=== PATIENT | female | born 1960 | race Caucasian/White ===

== ENCOUNTER 2021-07-08 21:28 | Emergency (ER) | payer MEDICAID, OTHER, SELFPAY ==
--- NOTE | ~2021-07-08 | CT_ITS ---
EXAMINATION: CT CERVICAL SPINE WITHOUT CONTRAST; UNENHANCED CT OF THE HEAD. CLINICAL INFORMATION: Right upper extremity numbness and tingling since 5:00 PM. COMPARISON: None TECHNIQUE: Routine unenhanced CT of the head with multiple coronal and sagittal reformatted images; routine unenhanced CT of the cervical spine with multiple coronal and sagittal reformatted images. This CT examination was performed using dose optimization techniques as appropriate, variously including the following: *Automated exposure control *Adjustment of mA and/or kV according to patient size (this includes techniques or standardized protocols for targeted exams where dose is matched to indication/reason for exam; i.e. extremities or head) *Use of iterative reconstruction technique DLP: 982 mGy-cm FINDINGS: CT head: No intracranial hemorrhage, tumors or acute infarcts are noted. The ventricles and sulci are normal in size and configuration. No focal parenchymal lesions of the brain or abnormal extra-axial fluid collections are noted. The orbits and globes are partially included in the image [id number] and are normal in appearance. No significant opacification of the visualized paranasal sinuses, mastoid air cells and middle ear cavities is identified. Focal density (70 Hounsfield units) of the left lateral aspect of the anterior falx is noted on image 50 of series 3 over a 2-3 mm diameter focus. This region demonstrates a sharp zone of transition and angulated, oblique angles which is not a typical configuration for subdural hemorrhage. (series 7 image 61). This region exerts no mass effect upon the adjacent brain parenchyma. 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 No fractures or acute appearing subluxations of the cervical spine are noted. Partial visualization is made of posterior broad-based disc bulges with annular calcifications at the levels of C5-C6 and C6-C7. Findings may result in mild-moderate adjacent central canal stenoses. The visualized lung apices are clear. No prevertebral inflammatory changes or fluid collections are visualized. The thyroid is normal in appearance. CT/CT head/brain wo con IMPRESSION: Unenhanced CT the head: 1. No definitive acute intracranial abnormalities. 2. 3 mm focal density along the left parasagittal aspect of the anterior falx. This finding is too small to specifically characterize and could represent a small meningioma. In the setting of trauma, a small focus of subdural hemorrhage could have a similar appearance. Given the absence of trauma in the clinical history and no evidence of traumatic findings elsewhere on the unenhanced CT the head, this finding is of uncertain clinical significance. Unenhanced CT of the cervical spine: 1. No acute abnormalities. 2. Chronic spondylosis at C5-C6 and C6-C7 as detailed above.
--- NOTE | ~2021-07-08 | CT_ITS ---
EXAMINATION: CT CERVICAL SPINE WITHOUT CONTRAST; UNENHANCED CT OF THE HEAD. CLINICAL INFORMATION: Right upper extremity numbness and tingling since 5:00 PM. COMPARISON: None TECHNIQUE: Routine unenhanced CT of the head with multiple coronal and sagittal reformatted images; routine unenhanced CT of the cervical spine with multiple coronal and sagittal reformatted images. This CT examination was performed using dose optimization techniques as appropriate, variously including the following: *Automated exposure control *Adjustment of mA and/or kV according to patient size (this includes techniques or standardized protocols for targeted exams where dose is matched to indication/reason for exam; i.e. extremities or head) *Use of iterative reconstruction technique DLP: 982 mGy-cm FINDINGS: CT head: No intracranial hemorrhage, tumors or acute infarcts are noted. The ventricles and sulci are normal in size and configuration. No focal parenchymal lesions of the brain or abnormal extra-axial fluid collections are noted. The orbits and globes are partially included in the image [id number] and are normal in appearance. No significant opacification of the visualized paranasal sinuses, mastoid air cells and middle ear cavities is identified. Focal density (70 Hounsfield units) of the left lateral aspect of the anterior falx is noted on image 50 of series 3 over a 2-3 mm diameter focus. This region demonstrates a sharp zone of transition and angulated, oblique angles which is not a typical configuration for subdural hemorrhage. (series 7 image 61). This region exerts no mass effect upon the adjacent brain parenchyma. 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 No fractures or acute appearing subluxations of the cervical spine are noted. Partial visualization is made of posterior broad-based disc bulges with annular calcifications at the levels of C5-C6 and C6-C7. Findings may result in mild-moderate adjacent central canal stenoses. The visualized lung apices are clear. No prevertebral inflammatory changes or fluid collections are visualized. The thyroid is normal in appearance. CT/CT cervical spine wo con IMPRESSION: Unenhanced CT the head: 1. No definitive acute intracranial abnormalities. 2. 3 mm focal density along the left parasagittal aspect of the anterior falx. This finding is too small to specifically characterize and could represent a small meningioma. In the setting of trauma, a small focus of subdural hemorrhage could have a similar appearance. Given the absence of trauma in the clinical history and no evidence of traumatic findings elsewhere on the unenhanced CT the head, this finding is of uncertain clinical significance. Unenhanced CT of the cervical spine: 1. No acute abnormalities. 2. Chronic spondylosis at C5-C6 and C6-C7 as detailed above.
[2021-07-08 22:08] VITALS: BP 112/64; PULSE 90; RESP 18; TEMP 36.7; O2SAT 95; BMI 24.5
[2021-07-08 23:54] LABS: MANUAL DIFF FLAG NO
[2021-07-08 23:58] LABS: Basophils Percent Auto 0.2 % (0-2); Hematocrit 42.4 % (37-47); Hemoglobin 14.1 g/dl (12.0-16.0); Imm Gran Abs Auto 0.02 X10*3/uL (0.00-0.03); Imm Gran Pct Auto 0.4 % (0.0-0.4); Lymphocytes Absolute Auto 1.2 X10*3/uL (1.2-4.9); Mean Corpuscular HGB Conc 33.3 g/dl (31.0-35.0); Mean Corpuscular Hemoglobin 28.2 pg (27.0-33.0); Mean Corpuscular Volume 84.8 fL (80-98); Mean Platelet Volume 10.2 fL (9.4-12.3); Monocytes Absolute Auto 0.4 X10*3/uL (0.1-1.2); Monocytes Percent Auto 6.9 % (2-11); Neutrophils Absolute Auto 3.6 X10*3/uL (2.0-8.3); Neutrophils Percent Auto 69.5 % (45-73); Platelet Count 201 X10*3/uL (160-400); Red Cell Distribution Width 12.6 % (11.0-16.0); White Blood Count 5.2 X10*3/uL (4.8-10.8)
--- NOTE | 2021-07-09 00:03 | ED_ITS ---
HPI - Neuro Symptoms/Deficit General Chief Complaint: Neuro Symptoms/Deficit Stated Complaint: Hand numbness/headach Time Seen by Provider: 07/09/21 00:03 Source: patient, family (Daughter) and paraprofessional interpreter ([employer]) Mode of arrival: ambulatory History of Present Illness HPI Narrative: 61-year-old female with presentation of tingling in the left upper extremity that goes from the elbow distally as well as describing body aches and headache that has all started at 5:00 p.m. after she received her COVID-19 vaccine yesterday. Patient otherwise denies any medical history although the daughter describes that she was informed in the [place] that she had diabetes but has not been on medications. Otherwise, patient denies any facial droop, speech/visual/hearing deficits, difficulties with ambulating. Related Data Previous Rx's Medication Instructions Recorded metformin 500 mg tablet 500 mg PO BID 30 Days #60 tab 07/09/21 Allergies Allergy/AdvReac Type Severity Reaction Status Date / Time No Known Allergies Allergy Verified 07/08/21 22:08 Review of Systems Review of Systems: Pertinent positives and negatives as stated HPI 10 point review of systems is otherwise negative. [facility] Past Medical History Source: nursing notes reviewed Social History Social History Advance Directives: No Advance Directives Information Provided: Yes Patient : No Physical Exam Vital Signs: Vital Signs: Last Vital Signs Temp 98.1 F 07/08/21 22:08 Pulse 77 07/09/21 02:28 Resp 20 07/09/21 02:28 BP 123/72 07/09/21 02:28 Pulse Ox 97 07/09/21 02:28 Body Mass Index 24.5 VITAL SIGNS: Reviewed. GENERAL: Well developed, well nourished, in no acute distress. HEAD: Normocephalic/atraumatic EYES: PERRLA, EOMI EARS: Ext canals without abnormality, TMs non-bulging and non-erythematous NOSE: Nares patent bilateral OROPHARYNX: no oral lesions noted, posterior pharynx clear, moist mucosa NECK: Supple, no adenopathy LUNGS: Normal breath sounds. No adventitious sounds or accessory muscle use. SpO2<98> CARDIOVASCULAR: Regular rate and rhythm without noted murmurs, no JVD or lower extremity edema. ABDOMEN: Soft, non-tender, non-distended with bowel sounds MUSCULOSKELETAL: No tenderness, deformities, or effusions noted on gross inspection. EXTREMITIES: No cyanosis, clubbing or edema. SKIN: Inspection of the skin reveals no rashes NEUROLOGIC: Alert and oriented x 4. Strength and sensation to light touch were grossly intact x 4, no facial asymmetry, no pronator drift, cranial nerves 2-12 are grossly intact, cerebellar testing is intact Course Course Course Narrative: 61-year-old female with history and clinical presentation most consistent with COVID-19 vaccine side effects as there are no focal deficits to suggest serious neurologic deficits. Patient is however noted to be hyper glycemic and will ensure she is neither in DKA or HHS and start her on oral medications. Review of all investigations otherwise negative for acute findings other than hyperglycemia without evidence of DKA or HHS. Patient received 1 L of IV fluids and repeat point of care glucose-249. Patient discharged home in stable condition with a prescription for metformin and instructions to follow-up with her primary care provider. MDM - Neuro Symptoms/Deficit Lab Data Result diagrams: 07/08/21 23:47 07/08/21 23:47 Labs: Lab Results 07/08/21 07/08/21 07/09/21 Range/Units 23:47 23:47 02:32 WBC 5.2 (4.8-10.8) X10*3/uL RBC 5.00 (4.20-5.50) X10*6/uL Hgb 14.1 (12.0-16.0) g/dl Hct 42.4 (37-47) % MCV 84.8 (80-98) fL MCH 28.2 (27.0-33.0) pg MCHC 33.3 (31.0-35.0) g/dl RDW 12.6 (11.0-16.0) % Plt Count 201 (160-400) X10*3/uL MPV 10.2 (9.4-12.3) fL Immature Gran % (Auto) 0.4 (0.0-0.4) % Neut % (Auto) 69.5 (45-73) % Lymph % (Auto) 23.0 (20-40) % Rains % (Auto) 6.9 (2-11) % Eos % (Auto) 0.0 (0-4) % Baso % (Auto) 0.2 (0-2) % Lymph # (Auto) 1.2 (1.2-4.9) X10*3/uL Rains # (Auto) 0.4 (0.1-1.2) X10*3/uL Eos # (Auto) 0.0 (0.0-0.4) X10*3/uL Baso # (Auto) 0.0 (0.0-0.2) X10*3/uL Abs Immat Gran (auto) 0.02 (0.00-0.03) X10*3/uL Absolute Neuts (auto) 3.6 (2.0-8.3) X10*3/uL Absolute Nucleated RBC 0.000 (0.0-0.012) X10*3/uL Nucleated RBC % (auto) 0.0 (0.0-0.2) /100WBC Sodium 135 (135-145) mmol/L Potassium 3.9 (3.3-5.1) mmol/L Chloride 103 (96-108) mmol/L Carbon Dioxide 26 (22-29) mmol/L Anion Gap 10 L (12-20) BUN 9 (9-16) mg/dL Creatinine 1.08 (0.5-1.4) mg/dL Estim Creat Clear Calc 43.2 Estimated GFR 52 POC Glucose 249 H (60-115) mg/dL Random Glucose 470 H* (60-115) mg/dL Calcium 9.3 (8.4-10.2) mg/dL Total Bilirubin 0.6 (0.0-1.0) mg/dL AST 11 (5-31) U/L ALT 18 (0-31) U/L Alkaline Phosphatase 82 (39-117) U/L Total Protein 6.2 L (6.5-8.0) g/dL Albumin 3.7 (3.5-5.0) g/dL Acetone, Qual Negative (Negative) Discharge Plan Discharge Clinical Impression: Diabetes, Hyperglycemia Patient Disposition: Home, Self-Care Instructions: Metformin (By mouth), Meal Planning with Diabetes Exchanges (DC), Diabetic Retinopathy (ED), Diabetic Peripheral Neuropathy (ED), Diabetic Kidney Disease (ED), Type 2 Diabetes in the Older Adult (ED), Diabetes and Nutrition (ED), Diabetes and Exercise (ED) Additional Instructions: 1. Tiene diabetes. 2. Le parks recetado la medicaci?n inicial chao 30 d?as. 3. Brenden un seguimiento con un proveedor de atenci?n primaria comunic?ndose con quiñonez sloan??a de seguros para obtener anusha lista. Regrese a la niyah de emergencias si joy s?ntomas empeoran de manera aguda. Prescriptions: New metformin 500 mg tablet 500 mg PO BID 30 Days Qty: 60 RF: 0 Print Language: Malaysian
[2021-07-09 00:13] LABS: Glucose Random 470 mg/dL (60-115)
[2021-07-09 00:14] LABS: Alanine Aminotransferase 18 U/L (0-31); Albumin Level 3.7 g/dL (3.5-5.0); Alkaline Phosphatase 82 U/L (39-117); Anion Gap 10 (12-20); Aspartate Amino Transferase 11 U/L (5-31); Bilirubin Total 0.6 mg/dL (0.0-1.0); Blood Urea Nitrogen 9 mg/dL (9-16); Calcium 9.3 mg/dL (8.4-10.2); Carbon Dioxide 26 mmol/L (22-29); Chloride 103 mmol/L (96-108); Creatinine Clr Calc Pharmacy 43.2; Estimated Glomerular Filt Rate 52; Potassium 3.9 mmol/L (3.3-5.1); Sodium 135 mmol/L (135-145); Total Protein 6.2 g/dL (6.5-8.0)
[2021-07-09 00:32] VITALS: BP 111/69; PULSE 79; RESP 16; O2SAT 98
[2021-07-09 00:33] LABS: Acetone, serum QL Negative (Negative)
--- NOTE | 2021-07-09 00:44 | PC.NURSE ---
Pt resting on stretcher in NAD, breathing with ease on RA. Pt aaox4, moving all extremities and repositioning independently on stretcher. Pt able to change self from sweater into gown. Dr Bowen to bedside with video senior business architect machine. Pt NSR on monitoring specialist, VSS. Pt with good effort against gravity with BUE and BLE. Pt with equal strength bilaterally. Pt reporting PRATER. Pt also reporting L hand numbness s/p vaccination yesterday. Pt reports sx began at about 5pm last evening. Pt aware of plan for CT scan of head and neck and medication upon return to room, per Dr Bowen. Pt made aware of need to establish PCP to monitor pt's blood sugar, pt expresses understanding. Pt to ED CT at this time.
[2021-07-09] MEDS: 0.9 % Sodium Chloride 1,000 ML 999 ML IV (01:27)
[2021-07-09 02:28] VITALS: BP 123/72; PULSE 77; RESP 20; O2SAT 97
[2021-07-09 02:37] LABS: Glucose, Whole Blood 249 mg/dL (60-115)
--- NOTE | 2021-07-09 02:38 | PC.NURSE ---
Pt ambulates to bathroom with steady gait. POC blood glucose reassessed, 249. Dr Bowen made aware. Pt resting on stretcher in NAD, stretcher low locked position, rails raised x 2, call schmidt within reach.
[2021-07-09 03:51] VITALS: BP 118/75; PULSE 84; RESP 15; O2SAT 98
== END 2021-07-09 03:59 | disposition home or self-care (01) ==
PROVIDERS: Emergency Provider Student in an Organized Health Care Education/Training Program
DX: E11.65 Type 2 diabetes mellitus with hyperglycemia (principal)
CPT/HCPCS: 36415; 70450; 72125; 80053; 82009; 82947; 85025; 96360; 99284

== ENCOUNTER 2021-09-28 09:32 | Outpatient (REF) | payer MEDICAID, OTHER, SELFPAY ==
--- NOTE | ~2021-09-28 | XR_ITS ---
EXAMINATION: BILATERAL KNEE X-RAY CLINICAL INFORMATION: Pain COMPARISON: None TECHNIQUE: 4 views of each knee FINDINGS: Right: Bone alignment is normal. No fracture or dislocation is seen. Joint spaces are normal. There is no joint effusion. Left: Bone alignment is normal. No fracture or dislocation is seen. The joint spaces are normal. There is no joint effusion. XR/XR knee LT 4V IMPRESSION: Normal knee x-rays
--- NOTE | ~2021-09-28 | XR_ITS ---
EXAMINATION: BILATERAL KNEE X-RAY CLINICAL INFORMATION: Pain COMPARISON: None TECHNIQUE: 4 views of each knee FINDINGS: Right: Bone alignment is normal. No fracture or dislocation is seen. Joint spaces are normal. There is no joint effusion. Left: Bone alignment is normal. No fracture or dislocation is seen. The joint spaces are normal. There is no joint effusion. XR/XR knee RT 4V IMPRESSION: Normal knee x-rays
== END 2021-09-28 09:33 | disposition home or self-care (01) ==
LOC: HO.XRAY 09:32
PROVIDERS: PCP Nurse Practitioner Family; Visit Provider Nurse Practitioner Family
DX: M25.561 Pain in right knee (principal); M25.562 Pain in left knee
CPT/HCPCS: 73564

== ENCOUNTER 2023-04-29 11:38 | Outpatient (REF) | payer MEDICAID, OTHER, SELFPAY ==
--- NOTE | ~2023-04-29 | XR_ITS ---
EXAMINATION: XR FOREARM, LEFT CLINICAL INFORMATION: Nodule COMPARISON: None available. TECHNIQUE: Frontal and lateral view 2 views AP and lateral views of the left forearm were obtained. FINDINGS: The bones and soft tissues are normal. No fracture. Imaged portions of the elbow and wrist are unremarkable. XR/XR forearm LT 2V IMPRESSION: No osseous changes to explain patient's symptoms. Ultrasound or contrast-enhanced MRI could be utilized to assess for possible soft tissue mass.
== END 2023-04-29 11:39 | disposition home or self-care (01) ==
LOC: HO.HHCX 11:38
PROVIDERS: Visit Provider Student in an Organized Health Care Education/Training Program
DX: M79.602 Pain in left arm (principal)
CPT/HCPCS: 73090

== ENCOUNTER → 2023-05-27 11:05 | Outpatient (REF) | payer MEDICAID, OTHER, SELFPAY ==
--- NOTE | 2023-05-27 11:08 | CA_ITS ---
Transthoracic Echocardiogram Patient (Last, First, Middle): Adina Eisenberg, Gender: Female Date of : 1960 Age: 63 Procedure Date: 05/27/2023 Procedure Type: Transthoracic Echocardiogram Location: OP Height: 152.4 cm Weight: 60.33 kg BSA: 1.57 m2 Heart Rate: 82 bpm BP: 125 / 75 mmHg Cable Installation Technician: SIVAN Tovar MD: Nedra Carrillo MD Satin Finisher: Cam Sanchez MD Symptoms: CARDIOMEGALY I51.7 Study Quality: Fair ECG Rhythm: Sinus Conclusions: - 1. Normal LV ejection fraction 55-60% with mild LVH with impaired relaxation filling pattern 2. Normal cardiac valvular Doppler 3. Mildly dilated ascending aorta at 4 cm 4. Normal RV systolic pressure 5. No gross pericardial effusion Findings Left Ventricle Normal left ventricular size and systolic function. There is mildly increased left ventricular wall thickness. The visually estimated ejection fraction is between 55-60%. Spectral Doppler is indicative of an impaired relaxation filling pattern. E/E prime ratio is between 8 and 15 consistent with indeterminate filling pressures. There is mild septal asymmetric hypertrophy. Right Ventricle Normal right ventricular cavity size and systolic function. Atria Both atria are normal in size. There is no evidence of interatrial shunt. Aortic Valve Normal aortic valve structure and function. There is no aortic valve stenosis. There is no aortic valve regurgitation. Mitral Valve Normal mitral valve structure and function. There is trace mitral valve regurgitation. There is no mitral valve stenosis. Pulmonic Valve The pulmonic valve is likely normal. Tricuspid Valve Normal tricuspid valve structure. There is mild tricuspid valve regurgitation. The right ventricular systolic pressure is normal. The right ventricular systolic pressure is 34 mmHg. Normal right atrial pressure. There is no evidence of pulmonary hypertension. Great Vessels The pulmonary artery was not well visualized. There is mild dilatation of the ascending aorta measuring 4.00 cm. Venous The inferior vena cava is normal in size and collapses greater than 50% with inspiration. Pericardium/Pleural There is no evidence of pericardial effusion. Prior Study Comparison No prior study available for comparison. Measurements 2D Linear Measurements IVSd: 1.60 0.6-0.9/0.6-1.0 cm LVIDd: 2.50 3.9-5.3/4.2-5.9 cm LVIDd Index: 1.59 2.4-3.2/2.2-3.1 cm/m2 LVIDs: 1.70 2.0-3.6 cm LVPWd: 1.20 0.7-1.1 cm LA Diam: 2.70 2.7-3.8/3.0-4.0 cm LAIDs Index: 1.72 1.5-2.3 cm/m2 LV Mass: 138.58 67-162/88-224 g LV Mass Index: 88.27 43-95/49-115 g/m2 LVOT Diam: 1.80 3.0+(-)1.3 cm 2D Systolic Function EF 4C: 53.80 >55% EF 2C: 62.00 >55% EF BiP: 58.00 >55% Mitral Valve MV Pk E: 0.86 MV PK A: 1.01 MV Decel Time: 237.00 E/A: 0.90 E'Lateral: 8.92 E'Medial: 5.98 E/E' Med: 14.40 E/E' Lat: 9.70 PHT: 69.00 MVA PHT: 3.19 Decel [place]: 3.63 Aortic Valve AoV Pk Toro: 1.61 AoV Mn Toro: 1.09 AoV VTI: 0.31 AoV Pk Grad: 10.00 Aov Mn Grad: 6.00 AKILA Cont.VTI: 1.96 LVOT LVOT Pk Toro: 1.27 LVOT Mn Toro: 0.85 LVOT VTI: 0.24 LVOT Pk Grad: 6.00 LVOT Mn Grad: 3.00 LVOT Diam: 1.80 LVOT Area: 2.54 Diastolic Function MV Pk E: 0.86 MV Pk A: 1.01 E/A: 0.90 E'Medial: 5.98 E/E' Med: 14.40 E' Laterial: 8.92 E/E' Lat: 9.70 Right Ventricle TAPSE (mm): 19.60 TVS' Toro: 11.10 Tricuspid Valve TR Pk Toro: 2.77 TR Pk Grad: 31.00 RA Press: 3.00 RVSP: 34.00 Great Vessels Aorta Sinus of Valsalva: 3.30 2.0-3.5 cm Ao Asc: 4.00 2.1-3.4 cm Pulmonary Valve PV Pk Toro: 1.15 Peak PV Grad: 5.00 Updated in Other Vendor System with Status of Final Cam Sanchez MD electronically signed on 05/27/2023 2:08:01 PM with status of Final
== END ==
LOC: HO.CARD 11:05
PROVIDERS: PCP Student in an Organized Health Care Education/Training Program; Visit Provider Student in an Organized Health Care Education/Training Program
DX: I51.7 Cardiomegaly (principal)
CPT/HCPCS: 93306

== ENCOUNTER → 2023-05-27 11:08 | Outpatient (BNV) | payer MEDICAID, SELFPAY | PROVIDERS: PCP Student in an Organized Health Care Education/Training Program; Visit Provider Internal Medicine Cardiovascular Disease | DX: I36.1 Nonrheumatic tricuspid (valve) insufficiency (principal); I51.7 Cardiomegaly | CPT/HCPCS: 93306 ==

== ENCOUNTER 2023-06-02 11:11 | Outpatient (REF) | payer MEDICAID, OTHER, SELFPAY ==
--- NOTE | ~2023-06-02 | MM_ITS ---
EXAMINATION: MM SCREENING DIGITAL BREAST TOMOSYNTHESIS, BILATERAL CLINICAL INFORMATION: Screening. Asymptomatic. The lifetime risk of breast cancer based on the Tyrer-Cuzick Model is 10.1%. COMPARISON: Mammography: Baseline study TECHNIQUE: Digital breast tomosynthesis is performed in both the craniocaudal and mediolateral oblique views along with computer-aided detection (CAD). Synthesized 2D images are generated from the tomosynthesis. FINDINGS: There are scattered areas of fibroglandular density (ACR BI-RADS breast composition Category b). There are no significant masses, abnormal calcifications, or other abnormalities. MM/MM tomosynthesis screening BI IMPRESSION: No mammographic evidence of malignancy. ASSESSMENT: BI-RADS BI-RADS 1 - Negative RECOMMENDATION: Routine annual mammography screening. 1 year F/U This examination should not preclude the clinical evaluation of a suspicious palpable abnormality. This patient's information was entered into a reminder system with a target due date for their next mammogram.
== END 2023-06-02 11:12 | disposition home or self-care (01) ==
LOC: HO.MAMMO 11:11
PROVIDERS: PCP Student in an Organized Health Care Education/Training Program; Visit Provider Student in an Organized Health Care Education/Training Program
DX: Z12.31 Encounter for screening mammogram for malignant neoplasm of breast (principal)
CPT/HCPCS: 77063; 77067

== ENCOUNTER → 2023-06-02 11:12 | Outpatient (BNV) | payer SELFPAY | PROVIDERS: PCP Student in an Organized Health Care Education/Training Program; Visit Provider Radiology Diagnostic Radiology | DX: Z12.31 Encounter for screening mammogram for malignant neoplasm of breast (principal) | CPT/HCPCS: 77063; 77067 ==

== ENCOUNTER 2024-02-23 08:52 | Outpatient (REF) | payer MEDICAID, OTHER, SELFPAY ==
[2024-02-23 11:50] LABS: Estimated Average Glucose 123 mg/dL; Hemoglobin A1C 132.8615 umol/L; Hemoglobin A1c % 5.9 % (<6.0)
[2024-02-23 12:05] LABS: Alanine Aminotransferase 16 U/L (0-31); Albumin Level 4.1 g/dL (3.5-5.0); Alkaline Phosphatase 98 U/L (39-117); Anion Gap 10 (12-20); Aspartate Amino Transferase 16 U/L (5-31); Bilirubin Total 0.3 mg/dL (0.0-1.0); Blood Urea Nitrogen 16 mg/dL (9-16); Calcium 9.6 mg/dL (8.4-10.2); Carbon Dioxide 28 mmol/L (22-29); Chloride 110 mmol/L (96-108); Cholesterol 142 mg/dL (<200); Estimated Glomerular Filt Rate > 60; Glucose Random 86 mg/dL (60-115); HDL Cholesterol 43 mg/dL (>40); LDL Cholesterol Calculated 83 mg/dL (<100); Potassium 3.5 mmol/L (3.3-5.1); Sodium 144 mmol/L (135-145); Total Protein 6.8 g/dL (6.5-8.0); Triglycerides 80 mg/dL (<150)
[2024-02-23 12:13] LABS: Creatinine Urine 30.71 mg/dL; Microalbumin Urine < 5.0 mg/L
[2024-02-23 21:18] LABS: Vitamin B12 336 pg/mL (200-900)
== END 2024-02-23 08:53 | disposition home or self-care (01) ==
LOC: HO.HHCL 08:52
PROVIDERS: Visit Provider Student in an Organized Health Care Education/Training Program
DX: E11.9 Type 2 diabetes mellitus without complications (principal)
CPT/HCPCS: 36415; 80053; 80061; 82043; 82570; 82607; 82746; 83036

== ENCOUNTER 2024-03-20 08:54 | Outpatient (REF) | payer MEDICAID, OTHER, SELFPAY ==
--- NOTE | ~2024-03-20 | US_ITS ---
EXAMINATION: Noninvasive assessment of the bilateral lower extremities with ARTERIAL DUPLEX and ANKLE BRACHIAL INDICES (ABIs). CLINICAL INFORMATION: Peripheral vascular disease, lower extremity edema TECHNIQUE: Duplex Doppler techniques with waveform analysis and measurement of velocities in the bilateral common femoral, profunda femoris, superficial femoral, popliteal and tibial arteries were performed. Additionally, ankle pulse volume recordings, ankle pressure measurements and ankle brachial indices were obtained of the lower extremity arterial system bilaterally. The study was performed only at rest. COMPARISON: None FINDINGS: DIRECT DUPLEX DOPPLER FINDINGS: RIGHT LEG: Common femoral artery: 63.6 cm/s, phasicity: Triphasic Profunda femoris artery: 61.7 cm/s, phasicity: Triphasic Superficial femoral artery (proximal): 92.5 cm/s, phasicity: Triphasic Superficial femoral artery (mid): 76.2 cm/s, phasicity: Triphasic Superficial femoral artery (distal): 54.2 cm/s, phasicity: Triphasic Popliteal artery: 68.5 cm/s, phasicity: Biphasic Posterior tibial artery: 74.8 cm/s, phasicity: Biphasic Peroneal artery: Not visualized Anterior tibial artery: 46.2 cm/s, phasicity: Biphasic Dorsalis pedis artery: 59.6 cm/s, phasicity:Biphasic LEFT LEG: Common femoral artery: 80.9 cm/s, phasicity: Triphasic Profunda femoris artery: 53.6 cm/s, phasicity: Triphasic Superficial femoral artery (proximal): 85.2 cm/s, phasicity: Triphasic Superficial femoral artery (mid): 89.5 cm/s, phasicity: Triphasic Superficial femoral artery (distal): 70 cm/s, phasicity: Triphasic Popliteal artery: 90.3 cm/s, phasicity: Triphasic Posterior tibial artery: 73 cm/s, phasicity: Biphasic Peroneal artery: Not visualized Anterior tibial artery: 48.3 cm/s, phasicity: Biphasic Dorsalis pedis artery: 66 cm/s, phasicity: Biphasic ANKLE-BRACHIAL INDEX: Right: 1.2? Left: 1.19 ANKLE PRESSURES: Right: PT 180, DP 178 Left: PT?179, DP?167 ANKLE PVR WAVEFORMS: Right: Normal Left: Normal US/US arterial duplex BI w/ JULIAN IMPRESSION: Right leg: Normal ankle brachial index and PVR waveforms. Normal duplex arterial ultrasound Left leg: Normal ankle brachial index and PVR waveforms. Normal duplex arterial ultrasound JULIAN Reference: - >1.4 = calcified vessels - 0.9 - 1.4 = normal - no significant arterial disease - 0.7 - 0.89 = mild peripheral arterial disease - 0.51 - 0.69 = moderate peripheral arterial disease - ? 0.50 = severe peripheral arterial disease - < .30 = critical arterial disease
== END 2024-03-20 08:55 | disposition home or self-care (01) ==
LOC: HO.US 08:54
PROVIDERS: PCP Student in an Organized Health Care Education/Training Program; Visit Provider Student in an Organized Health Care Education/Training Program
DX: R60.0 Localized edema (principal)
CPT/HCPCS: 93922; 93925

== ENCOUNTER 2024-06-05 16:47 | Outpatient (REF) | payer MEDICAID, OTHER, SELFPAY ==
[2024-06-05 16:55] LABS: Appearance Urine Turbid; Color Urine Yellow; Glucose Urine UA Negative (Negative); Leukocyte Esterase Urine Negative (Negative); Nitrite Urine Negative (Negative); PH 5.5 (5.0-9.0); Specific Gravity - Urine >= 1.030 (1.005-1.025); Urine Blood Negative (Negative); Urine Ketones Negative (Negative); Urine Protein Negative (Neg-Trace)
[2024-06-05 17:06] LABS: Bacteria Urine None Seen (None Seen); Calcium Oxalate Crystals Urine Present; Hyaline Casts Urine 0-2 /LPF (0-2); RBC Urine 0-2 /HPF (0-2); Squamous Epithelial Cell Urine 0-2 /HPF (0-2); WBC Urine 0-5 /HPF (0-5)
== END 2024-06-05 16:48 | disposition home or self-care (01) ==
LOC: HO.HHCLNP 16:47
PROVIDERS: Visit Provider Student in an Organized Health Care Education/Training Program
DX: R30.0 Dysuria (principal)
CPT/HCPCS: 81001

== ENCOUNTER 2024-06-07 11:28 | Outpatient (REF) | payer MEDICAID, OTHER, SELFPAY ==
--- NOTE | ~2024-06-07 | MM_ITS ---
EXAMINATION: MM SCREENING DIGITAL BREAST TOMOSYNTHESIS, BILATERAL CLINICAL INFORMATION: Screening. Asymptomatic. COMPARISON: Mammography: This study is compared with prior exams dating back to 2022. TECHNIQUE: Digital breast tomosynthesis is performed in both the craniocaudal and mediolateral oblique views along with computer-aided detection (CAD). Synthesized 2D images are generated from the tomosynthesis. FINDINGS: There are scattered areas of fibroglandular density (ACR BI-RADS breast composition Category b). There are no significant masses, abnormal calcifications, or other abnormalities. MM/MM tomosynthesis screening BI IMPRESSION: No mammographic evidence of malignancy. ASSESSMENT: BI-RADS BI-RADS 1 - Negative RECOMMENDATION: Routine annual mammography screening. 1 year F/U This examination should not preclude the clinical evaluation of a suspicious palpable abnormality. This patient's information was entered into a reminder system with a target due date for their next mammogram. Electronically signed by: Margo Sotelo MD 07/05/2024 08:53 AM EDT
== END 2024-06-07 11:29 | disposition home or self-care (01) ==
LOC: HO.MAMMO 11:28
PROVIDERS: PCP Student in an Organized Health Care Education/Training Program; Visit Provider Student in an Organized Health Care Education/Training Program
DX: Z12.31 Encounter for screening mammogram for malignant neoplasm of breast (principal)
CPT/HCPCS: 77063; 77067

== ENCOUNTER → 2024-06-07 11:30 | Outpatient (BNV) | payer SELFPAY | PROVIDERS: PCP Student in an Organized Health Care Education/Training Program; Visit Provider Radiology Diagnostic Radiology | DX: Z12.31 Encounter for screening mammogram for malignant neoplasm of breast (principal) | CPT/HCPCS: 77063; 77067 ==

== ENCOUNTER 2024-07-20 10:14 | Outpatient (REF) | payer MEDICAID, SELFPAY ==
[2024-07-20 11:41] LABS: Hematocrit 39.6 % (37.0-47.0); Hemoglobin 12.6 g/dl (12.0-16.0); Mean Corpuscular HGB Conc 31.8 g/dl (31.0-35.0); Mean Corpuscular Hemoglobin 27.2 pg (27.0-33.0); Mean Corpuscular Volume 85.3 fL (80.0-98.0); Mean Platelet Volume 11.1 fL (9.4-12.3); Platelet Count 208 X10*3/uL (160-400); Red Blood Count 4.64 X10*6/uL (4.20-5.50); Red Cell Distribution Width 14.1 % (11.0-16.0); White Blood Count 6.4 X10*3/uL (4.8-10.8)
[2024-07-20 12:15] LABS: Estimated Average Glucose 114 mg/dL; Hemoglobin A1c % 5.6 % (<6.0)
[2024-07-20 12:25] LABS: Alanine Aminotransferase 16 U/L (0-31); Albumin Level 4.1 g/dL (3.5-5.0); Alkaline Phosphatase 77 U/L (39-117); Anion Gap 12 (12-20); Aspartate Amino Transferase 16 U/L (5-31); Bilirubin Total 0.3 mg/dL (0.0-1.0); Blood Urea Nitrogen 22 mg/dL (9-16); Calcium 9.8 mg/dL (8.4-10.2); Carbon Dioxide 26 mmol/L (22-29); Chloride 107 mmol/L (96-108); Cholesterol 144 mg/dL (<200); Estimated Glomerular Filt Rate > 60; Glucose Random 85 mg/dL (60-115); HDL Cholesterol 45 mg/dL (>40); LDL Cholesterol Calculated 82 mg/dL (<100); Potassium 3.8 mmol/L (3.3-5.1); Sodium 141 mmol/L (135-145); TSH reflex Free T4 2.24 uIU/mL (0.32-4.0); Triglycerides 85 mg/dL (<150); Vitamin D 25-OH Total 34.3 ng/mL (>30)
[2024-07-20 12:26] LABS: Creatinine Urine 191.12 mg/dL; Microalbum/Creatinine Ratio Ur 10.4 ug/mg cr (<30)
[2024-07-20 12:39] LABS: Folate 8.8 ng/mL (> or = 4.0); Vitamin B12 353 pg/mL (200-900)
== END 2024-07-20 10:15 | disposition home or self-care (01) ==
LOC: HO.HHCL 10:14
PROVIDERS: Visit Provider Student in an Organized Health Care Education/Training Program
DX: Z00.00 Encounter for general adult medical examination without abnormal findings (principal)
CPT/HCPCS: 36415; 80053; 80061; 82043; 82306; 82570; 82607; 82746; 83036; 84443; 85027

== ENCOUNTER 2024-07-24 11:34 | Outpatient (REF) | payer MEDICAID, OTHER, SELFPAY ==
--- NOTE | ~2024-07-24 | XR_ITS ---
EXAMINATION: XR THORACIC SPINE XR LUMBAR SPINE CLINICAL INDICATION: Chronic thoracolumbar pain. COMPARISON: None available. TECHNIQUE: 3 views lumbar spine, 3 views thoracic spine. FINDINGS: LUMBAR SPINE: Diffuse demineralization. Straightening of the normal lumbar lordosis. Facet arthritis in the lower lumbar spine. Dextroscoliosis of the lumbar spine. Multilevel lumbar spondylosis. Jjeuqlsh-pg-oyycst loss of disc space height at L5-S1 with subchondral sclerosis. Moderate loss of disc space height at L4-L5. THORACIC SPINE: Diffuse demineralization. Rightward curvature of the thoracolumbar spine. Moderate multilevel degenerative changes in the thoracic spine. XR/XR lumbar spine 2-3V IMPRESSION: 1. Fcgvvlgh-[id number] degenerative disc disease at L5-S1. 2. Moderate multilevel degenerative changes in the thoracic spine. 3. This study was presented today with one from the 2023 for interpretation. Stat results provided at this time as requested by referring provider. Electronically signed by: Milagro Brink MD 07/24/2024 01:29 PM EDT
--- NOTE | ~2024-07-24 | XR_ITS ---
EXAMINATION: XR THORACIC SPINE XR LUMBAR SPINE CLINICAL INDICATION: Chronic thoracolumbar pain. COMPARISON: None available. TECHNIQUE: 3 views lumbar spine, 3 views thoracic spine. FINDINGS: LUMBAR SPINE: Diffuse demineralization. Straightening of the normal lumbar lordosis. Facet arthritis in the lower lumbar spine. Dextroscoliosis of the lumbar spine. Multilevel lumbar spondylosis. Cwbvayye-[id number]-wpplgc loss of disc space height at L5-S1 with subchondral sclerosis. Moderate loss of disc space height at L4-L5. THORACIC SPINE: Diffuse demineralization. Rightward curvature of the thoracolumbar spine. Moderate multilevel degenerative changes in the thoracic spine. XR/XR thoracic spine 2V IMPRESSION: 1. Gxzfiixp-vy-gadelc degenerative disc disease at L5-S1. 2. Moderate multilevel degenerative changes in the thoracic spine. 3. This study was presented today with one from the 2023 for interpretation. Stat results provided at this time as requested by referring provider. Electronically signed by: Milagro Brink MD 07/24/2024 01:29 PM EDT
== END 2024-07-24 11:35 | disposition home or self-care (01) ==
LOC: HO.HHCX 11:34
PROVIDERS: Visit Provider Student in an Organized Health Care Education/Training Program
DX: M54.89 Other dorsalgia (principal)
CPT/HCPCS: 72070; 72100

== ENCOUNTER 2024-07-30 09:01 | Outpatient (REF) | payer MEDICAID, OTHER, SELFPAY ==
--- NOTE | ~2024-07-30 | XR_ITS ---
EXAMINATION: XR LUMBOSACRAL SPINE CLINICAL INFORMATION: chronic thoraco back pain COMPARISON: X-ray dated July 24, 2024 TECHNIQUE: Three views of the lumbosacral spine. FINDINGS: Submitted for interpretation on October 05, 2024 Multilevel marginal osteophyte formation and endplate sclerosis and decreased disc height more conspicuous at L5-S1. No acute cortical disruption or gross malalignment. No lytic or blastic lesions. S-shaped curvature of the lumbar spine. Osteopenia versus osteoporosis. Vascular calcifications. XR/XR lumbar spine 2-3V IMPRESSION: Multilevel spondylosis more conspicuous at L5-S1. No change. Electronically signed by: Carlito Gaines MD 10/05/2024 04:02 PM [facility]
--- NOTE | ~2024-07-30 | US_ITS ---
EXAMINATION: US ABDOMEN COMPLETE CLINICAL INFORMATION: Patient reports chronic abdominal difference in left upper quadrant, not causing pain. COMPARISON: None available. TECHNIQUE: Real-time imaging of the abdominal viscera. FINDINGS: PANCREAS: Normal. ABDOMINAL AORTA: The proximal, mid, and distal segments are normal in caliber. INFERIOR VENA CAVA: Visualized portions are normal. LIVER: Normal. The liver is normal in size. The liver contour is normal. Parenchymal echogenicity is normal. No focal hepatic lesion. There is no intrahepatic biliary duct dilatation seen. GALLBLADDER: Normal. The gallbladder is physiologically distended without evidence of stones, sludge, polyps, wall thickening or pericholecystic fluid. COMMON BILE DUCT: Normal in caliber measuring 0.5 cm in diameter. RIGHT KIDNEY: No hydronephrosis or renal calculi. The kidney measures 8.2 cm in maximum dimension. At the lower pole, a 1.1 cm benign, simple cyst is seen, which requires no imaging follow-up. LEFT KIDNEY: No hydronephrosis or renal calculi. The kidney measures 9.1 cm in maximum dimension. At the upper pole, a 3.5 x 2.9 x 3.3 cm complex cyst versus mass is seen. This shows no significant change in through sound transmission. SPLEEN: Not visualized. FREE FLUID: None. US/US abdomen complete IMPRESSION: 1. At the upper pole of the left kidney, a 3.5 cm complex mass versus cyst is seen. This could be more fully evaluated with CT or MRI (renal mass protocol), if relevant to patient management. 2. The spleen is not visualized. Electronically signed by: Clayton Jiménez MD 09/03/2024 11:43 PM EST
--- NOTE | ~2024-07-30 | XR_ITS ---
EXAMINATION: XR THORACIC SPINE CLINICAL INFORMATION: chronic back pain COMPARISON: July 24, 2024 TECHNIQUE: 3 views of the thoracic spine were obtained. FINDINGS: Submitted for interpretation on October 05, 2024. Multilevel marginal osteophyte formation and syndesmophyte formation and endplate sclerosis and decreased intervertebral disc height. No acute cortical disruption or gross malalignment. S-shaped curvature of the thoracic spine. Osteopenia versus osteoporosis. No lytic or blastic lesions. XR/XR thoracic spine 2V IMPRESSION: Multilevel spondylosis and mild scoliosis. No change. Electronically signed by: Carlito Gaines MD 10/05/2024 04:04 PM [facility]
== END 2024-07-30 09:02 | disposition home or self-care (01) ==
LOC: HO.US 09:01
PROVIDERS: PCP Student in an Organized Health Care Education/Training Program; Visit Provider Student in an Organized Health Care Education/Training Program
DX: R01.2 Other cardiac sounds (principal); M54.89 Other dorsalgia
CPT/HCPCS: 72070; 72100; 76700

== ENCOUNTER → 2024-07-30 09:05 | Outpatient (BNV) | payer SELFPAY | PROVIDERS: PCP Student in an Organized Health Care Education/Training Program; Visit Provider Radiology Diagnostic Radiology | DX: M54.50 Low back pain, unspecified (principal) | CPT/HCPCS: 72070; 72100 ==

== ENCOUNTER 2024-10-30 10:29 | Outpatient (REF) | payer MEDICAID, OTHER, SELFPAY ==
--- NOTE | ~2024-10-30 | CT_ITS ---
CLINICAL HISTORY: left kidney mass Exam: CT abdomen and pelvis with and without intravenous contrast. Comparison: Abdominal ultrasound July 30, 2024. Findings: CT abdomen: Lung bases are clear. Bones are osteopenic. No acute bony lesion. There is degenerative change of the lower lumbar spine. On the noncontrast examination, no renal or ureteral calculi. No pancreatic calcifications. No calcified gallstones. Contrast injection was then performed. No concerning solid mass lesions are seen within the kidneys. Several bilateral subcentimeter cysts are seen within both kidneys. However, there is no CT correlate to the reported ultrasound abnormality. No hydronephrosis or perinephric stranding. No solid renal mass identified. Low attenuation throughout the liver is indicative of fatty infiltration. Scattered hepatic cysts measure up to 12 mm in size. Main portal vein is patent. Spleen, pancreas, gallbladder, and adrenal glands are unremarkable. Small bowel loops are of normal caliber. No free fluid or free air. CT pelvis: Appendix is normal. No colonic wall thickening or pericolonic inflammatory stranding. Concentric wall thickening of the urinary bladder measures up to 2 2 cm with areas of hyperenhancement of the bladder mucosa and areas of irregularity of the bladder mucosa. Impression: 1. No suspicious renal mass identified. There are subcentimeter simple bilateral renal cysts. No CT correlate to the reported ultrasound abnormality. 2. Fatty infiltration of the liver with numerous small hepatic cysts. 3. Marked urinary bladder wall thickening with areas of mucosal irregularity mucosal hyperenhancement. Correlation with any urinary symptoms suggested. Correlation with urinalysis and cystoscopy is suggested This document has been electronically signed by: Arik Moran MD on 10/31/2024 07:55:33
[2024-10-30] MEDS: iohexoL 350 MG/ML 100 ML INFUS..BTL IV (12:34)
[2024-11-01 13:00] LABS: Creatinine POC 0.9 mg/dL (0.5-1.4); GFR POC > 60
== END 2024-10-30 10:30 | disposition home or self-care (01) ==
LOC: HO.CT 10:29
PROVIDERS: PCP Student in an Organized Health Care Education/Training Program; Visit Provider Student in an Organized Health Care Education/Training Program
DX: N28.89 Other specified disorders of kidney and ureter (principal)
CPT/HCPCS: 74178; 82565; Q9967

== ENCOUNTER → 2024-10-30 10:35 | Outpatient (BNV) | payer SELFPAY | PROVIDERS: PCP Student in an Organized Health Care Education/Training Program; Visit Provider Radiology Diagnostic Radiology | DX: N28.1 Cyst of kidney, acquired (principal); K76.0 Fatty (change of) liver, not elsewhere classified; K76.89 Other specified diseases of liver; N32.89 Other specified disorders of bladder | CPT/HCPCS: 74178 ==

== ENCOUNTER 2025-06-27 08:50 | Outpatient (REF) | payer MEDICAID, OTHER, SELFPAY ==
--- OUTSIDE RECORDS SUMMARY | 2025-06-25 09:15 | XMS_ITS | Encounter Summary ---
Author Organization [employer] Address [address] [place] [address] [facility] [place] [address] Care Team Providers Care Earthmoving Labourer Name Role Phone Nedra Pulido MD Primary Care Pro vider Reason for Referral * Consultation (Routine) - Authorized Specialty Diagnoses / Procedures Referred By Rosalba t Referred To Contact Pharmacy Diagnoses Type 2 diabetes mellitus without complication, unspecified whether terminal worker insulin use ([facility]) Nedra Pulido MD [address] [place] [address] Phone: tel: fax: Referral ID Status Reason Start Date Expiration Date Visits Requested Visits Authorized [id number] Authorized Continuity of Care 06/25/2025 06/25/2026 6 6 * Consultation (Routine) - Closed Specialty Diagnoses / Procedures Referred By Contjeana t Referred To Contact Physical Therapy Diagnoses Other back pain, unspecified chronicity Nedra Pulido MD [address] [place] [address] Phone: tel: fax: [facility] [address] [place] [address] Phone: tel: fax: Referral ID Status Reason Start Date Expiration Date V isits Requested Visits Authorized [id number] Closed Specialty Services Required 06/25/2025 06/25/2026 1 1 * Consultation (Routine) - Authorized Specialty Diagnoses / Procedures Referred By Contac t Referred To Contact Rheumatology Diagnoses Arthritis Polyarthralgia Nedra Pulido MD [address] [place] [id number] Phone: tel: fax: [facility] [address] [place] [address] Phone: tel: fax: Referral ID Status Reason Start Date Expiration Date Visits Requested Visits Authorized [id number] Authorized Specialty Services Required 06/25/2025 06/25/2026 1 1 * Consultation (Routine) - Authorized Specialty Diagnoses / Procedures Referred By Contac t Referred To Contact Cardiology Diagnoses Abnormal echocardiogram Nedra Pulido MD [address] [place] [address] Phone: tel: fax: [facility] Referral ID Status Reason Start Date Expiration Date Visits Requested Visits Authorized [id number] Authorized Specialty Services Required 06/25/2025 06/25/2026 1 1 * Consultation (Routine) - Authorized Specialty Diagnoses / Procedures Referred By Contac t Referred To Contact Urology Diagnoses Bladder wall thickening Nedra Pulido MD [address] [place] [address] Phone: tel: fax: [facility] Referral ID Status Reason Start Date Expiration Date Visits Requested Visits Authorized [id number] Authorized Specialty Services Required 06/25/2025 06/25/2026 1 1 * Consultation (Routine) - Authorized Specialty Diagnoses / Procedures Referred By Contac t Referred To Contact Podiatry Diagnoses Type 2 diabetes mellitus without complication, unspecified whether chcf insulin use ([facility]) Nedra Pulido MD [address] [place] [address] Phone: tel: fax: [facility] [address] [address] Phone: tel: fax: Referral ID Status Reason Start Date Expiration Date Visits Requested Visits Authorized [id number] Authorized Specialty Services Required 06/25/2025 06/25/2026 1 1 Reason for Visit * Reason Comments Annual Exam Encounter Details Date Type Department Care Team (Late st Contact Info) Description 06/25/2025 9:15 AM EDT Office Visit [facility] [address] [place] [address] Nedra Pulido MD [address] [place] [address] Bladder wall thickening (Primary Dx); Type 2 diabetes mellitus without complication, unspecified whether terminal worker insulin use (CMS/HCC); Arthritis; Polyarthralgia; Abnormal echocardiogram; Other back pain, unspecified chronicity; Mixed hyperlipidemia; Osteoporosis without current pathological fracture, unspecified osteoporosis type; Type 2 diabetes mellitus with other specified complication, unspecified whether chcf insulin use (CMS/HCC); Other chronic pain; Annual physical exam; Essential hypertension; Health care maintenance; Vulvar pruritus; Atrophic vulvitis Social History Tobacco Use Types Packs/Day Years Used Date Smoking Tobacco: Former Cigarettes Passive Smoke Exposure: Never Smokeless Tobacco: Current Tobacco Cessation:Ready to Q uit: Not Asked; Counseling Given: Not Answered Comments:Smoked x 1 year at her 20 y of age 10 cigarettes and stopped Alcohol Use Standard Drinks/Week Comments Never 0 (1 standard drink = 0.6 oz pur e alcohol) Depression Answer Date Recorded Patient Health Questionnaire-9 Score 0 06/05/2024 Patient Health Questionnaire-9 Score 0 06/05/2024 Last PHQ-9: Questionnaire Data Not on file 0 06/05/2024 Housing Stability Answer Date Recorded What is your housing situation today? I have karen mccracken 08/25/[address] you li ve. Do you have problems with any of the following? None of the above 08/25/2023 Food Insecurity Answer Date Recorded Within the past 12 months, y ou worried that your food would run out before you got money to buy more: Never True 08/25/2023 Within the past 12 months,th e food you bought just didn't last and you didn't have enough money to get more: Never True Transportation Answer Date Recorded In the past 12 months, has l ack of transportation kept you from medical appts, meetings, work or from getting things needed for daily living? No 08/25/2023 Utilities Answer Date Recorded In the past 12 months, has t he electric, gas, oil or water company threatened to shut off services in your home? No 08/25/2023 Depression Answer Date Recorded Patient Health Questionnaire-2 Score 0 06/05/2024 Internet Access Answer Date Recorded Internet Access Q1 Yes 07/02/2024 Internet Access Q2 Not on file 07/02/2024 Comments No Sex and Gender Information Value Date Recorded Sex Assigned at Female 08/30/2022 10:39 AM EDT Legal Sex Female 10:39 AM EDT Gender Identity Female 08/30/2022 10:39 AM EDT Sexual Orientation Straight 08/30/2022 10 :39 AM EDT documented as of this encounter Last Filed Vital Signs Vital Sign Reading Time Taken Comments Blood Pressure 120/80 06/25/2025 9:21 AM EDT Pulse 84 06/25/2025 9:21 AM EDT Temperature 37 C (98.6 F) 06/25/2025 9:21 AM EDT Respiratory Rate 18 06/25/2025 9:21 AM EDT Oxygen Saturation - - Inhaled Oxygen Concentration - - Weight 52.7 kg (116 lb 3.2 oz) 06/25/2025 9:21 A M EDT Height 149.9 cm (4' 11 ) 06/25/2025 9:21 AM EDT Body Mass Index 23.47 06/25/2025 9:21 AM EDT documented in this encounter Progress Notes * Nedra Carrillo MD - 06/25/2025 9:15 AM EDT Subjective Patient ID: Adina Eisenberg is a 65 y.o. female who presents for Annual Exam.Comes w daughter HPI Walks w a cane /RW [address] zapien PMPetarx of HTN, DM2, HLD, cardiomegaly?, osteoporosis and polyarthritis f w auto body detailer Comes f annual exam -Reports her insurance changed recently and wondering if referrals can be sent to new specialist close by . I spoke today w Christen Thakkar and confirmed ok to send new referrals --sent today new referralsto auto body detailer, look out [place] fire watcher,count team clerk and urologist to be seen closer than [place] -Reports chronic vulvar itching ,no discahrge ----- Assessment and Plan: Health care maintenance -Annual exam done 05/2025 -Quantiferon 04/2023 neg -pap smear:05/31/2022: neg/HPV neg-to repeat in 5 years -MM 05/2024: BI-RADS 1 - Negative--gave # today to daughter to call for apt -Colonoscopy 10/2023 : Perianal skin tags found on perianal exam.Diverticulosis in the sigmoid colonand in the ascending colon.One 7 mm polyp in the descending colon--path report : tubular adenoma .Internal hemorrhoids.--Repeat colonoscopy in 7 years for surveillance. -vaccines:s/p hep B x1-not immune, refused vaccination.,covid x2-Bivalent x1- COVID 19 last booster 10/2023 , RSV vaccine 12/2023 , TD 2021,p20 04/2023 ,shingrix x2. Refused offered today COVID and Flu vaccine ------ -referred to [facility] today DM2/HLD -07/20/2024 BUN 22 denies melenas , hb1AC 5.6, LDL 82 ,microalb neg<----5.9<---9.4<---6.1 Home CBG in fasting bw 85 to 100s -ophthalmology 03/2023 To f in 1 y -today capillary hb1AC 5.8 , CBG 62 ---got juice today for low sugar States having CBGs at home in 80s , denies symptoms w it -decrease metformin to 500 mg ER daily-pt states taking metformin 1000 mg daily instead of BID ,seems improved since not fully compliant w daily steroids pxed by auto body detailer -Continue Januvia 100 mg daily -atorvastatin 20 mg daily -referred to look out tower fire watcher---- -apt w podiatry at [facility] 02/2026 -new referral sent for closer place -referred to ophthalmology already -f w public information officer at [facility] --apt for 05/2025 -has glucometer HTN -all home Bps are wnl < 140/90 -07/2024 Microalb neg -EKG 04/2023 - NSR,QTC 440,no ischemic findings, HR 70x' -ophthalmology seen 03/2023 to f in 1 y -referred again already -continue losartan 25 mg daily Polyarthritis deforming arthritis of mx joints -worse in hands and knees -from previous auto body detailer' note seen 12/2021: -aspiration of L knee 01/04/22----> turbid,WBC 500 -Bilateral shoulders 12/2021: No acute fracture or dislocation. Glenohumeral alignment maintained. Mild acromioclavicular osteoarthritis. Soft tissues unremarkable. Sclerotic density projecting in theleft glenoid, likely related to bone island. -Bilateral hands 12/2022: Mild to moderate first carpometacarpal and interphalangeal joints osteoarthritis. No osseous erosions. No acute fracture or dislocation. Soft tissues unremarkable. -Bilateral knee XR 12/2021: Mild osteopenia. Slight narrowing of the medial joint spaces with marginal spurring. No joint effusions. No acute fracture or dislocation. Soft tissues unremarkable. -Left XR forearm 04/29/2023: no osseous changes -04/2023: MIKAYLA-, RF-, CCP-, ESR and CRP wnl, uric acid nl, -rheumatology 10/2024 Currently, duloxetine 60mg daily - re: methylprednisolone 4mg daily, leflunomide 20mg daily -advised to take tylenol prn -pt stopped Duloxetine - states run out for 3 weeks ,resume today 30 mg daily for 7 days and then 60 mg daily -pharmacy informed ,also advised pt to call her auto body detailer to f on leflunomide refill,states has refills of PO steroids but pt taking on and off ,advised pt that is not advisable to take steroids that way and to discuss w her auto body detailer -apt w Marine Engineering Professor At [facility] 09/17/2025 -referred to new sp closer Mild septal asymmetric hypertrophy -TTE 08/2024 Interventricular septal thickening. Estimated LVEF 74% .The aorta is dilated at the ascending aorta (4.0 cm).Possible PFO visualized with possible left to right shunting seen Consider repeat study with bubble study for better characterization of the septum. -F w cards-TTE done by cards --daughter to check when is next apt -referred to new closer Osteoporosis -Dexa scan 10/2024: Osteoporosis -3.1 -ca/vit D daily BID -pt to bring name of osteoporosis med started by rheumatology 12/2024 -states not getting med daugther to call today her auto body detailer Left great toe nail deformity Pt w deformity of left great toenail s/p terbinafine that completed for 6 weeks ,lost care so nevercompleted other 6 weeks but reports that she did not notice a change w med and she thinks change ontoenail is from chemical product years ago . Not bother from this -saw orthopedic 12/2023 R-had foot XR: Bilateral radiographs were performed. There is midfoot arthritis. There is also evidence of toe deformities-rec to f w look out tower fire watcher -on ciclopirox -helping -apt w podiatry at [facility] 02/2026 ---referred to look out tower fire watcher for closer sp apt Lower extremity edema Chronic LE edema 1+ BL, shinny skin, normal temp and apparent normal pulses- Resolved since using compressions stockings -venous and arterial US req JULIAN 03/20/2024: Right leg: Normal ankle brachial index and PVR waveforms. Normal duplex arterial ultrasound ,Left leg: Normal ankle brachial index and PVR waveforms. Normalduplex arterial ultrasound -continue using compression stockings 15 to 20 mmHg -advised to raise legs Renal cyst/abnormal bladder thickening -Abd US 07/2024 - At the upper pole of the left kidney, a 3.5 cm complex mass versus cyst is seen. This could be more fully evaluated with CT or MRI (renal mass protocol) -CT abdomen and pelvis with and without intravenous contrast. 09/2024 No suspicious renal mass identified. There are subcentimeter simple bilateral renal cysts. No CT correlate to the reported ultrasound abnormality.Fatty infiltration ofthe liver with numerous small hepatic cysts. Marked urinary bladder wall thickening with areas of mucosal irregularity mucosal hyperenhancement. Correlation with any urinary symptoms suggested. Correlation with urinalysis and cystoscopy is suggested -apt w urologist 09/10/2025 for bladder wall thickening at next apt planned for cystoscopy --referred to closer sp Chronic back pain -reports chronic generalized back pain neck less then thoraco- lumbar back w no neurologic symptoms Normal neuro exam Pt on steroids chronically -lumbar XR 07/2024 : Multilevel marginal osteophyte formation and endplate sclerosis and decreased disc height more conspicuous at L5-S1. No acute cortical disruption or gross malalignment. No lytic or blastic lesions. S-shaped curvature of the lumbar spine. Osteopenia versus osteoporosis. Vascular calcifications. -Thoracic spine XR 07/2024 : Multilevel marginal osteophyte formation and syndesmophyte formation and endplate sclerosis and decreased intervertebral disc height. No acute cortical disruption or grossmalalignment. S-shaped curvature of the thoracic spine. Osteopenia versus osteoporosis. No lytic or blastic lesions. Multilevel spondylosis and mild scoliosis. No change. -PT for generalized back pain -- not started yet--referred again today -Lidoderm patch -tylenol prn Right knee mass sensation -XR knee 2021 Bilateral knee: Mild osteopenia. Slight narrowing of the medial joint spaces with marginal spurring. No joint effusions. No acute fracture or dislocation. Soft tissues unremarkable. -noted subcutaneos superficial mass aprox 1.5 cm ,likely cyst-referred to dermatology for excision ---apt w welder/fabricator 06/28/2025 Vulvar pruritus -Vulvovaginal atrophy (atrophic vulvitis) Reports chronic vulvar itching ,no discahrge on exam vulvar skin is thin,dry, no erythema , no lesions ,no signs of infection Likely from menopause -Estrace daily for 1 week then twice a week,no contraindiactions for use -will monitor next apt Review of Systems Constitutional: Negative. Negative for chills, fatigue and fever. HENT: Negative. Eyes: Negative. Respiratory: Negative. Cardiovascular: Negative. Gastrointestinal: Negative. Genitourinary: Negative. Vulvar itching-chronic Musculoskeletal: Negative. Neurological: Negative. Hematological: Negative. Psychiatric/Behavioral: Negative. Objective BP 120/80 (BP Location: Left arm, Patient Position: Sitting, BP Cuff Size: Adult) Pulse 84 Temp98.6 ??F (37 ??C) (Oral) Resp 18 Ht 4' 11 (1.499 m) Wt 116 lb 3.2 oz (52.7 kg) BMI 23.47 kg/m?? Physical Exam Vitals reviewed. Constitutional: Appearance: Normal appearance. HENT: Head: Normocephalic and atraumatic. Right Ear: Tympanic membrane and ear canal normal. Left Ear: Tympanic membrane and ear canal normal. Mouth/Throat: Mouth: Mucous membranes are moist. Pharynx: Oropharynx is clear. Eyes: Extraocular Movements: Extraocular movements intact. Pupils: Pupils are equal, round, and reactive to light. Cardiovascular: Rate and Rhythm: Normal rate and regular rhythm. Heart sounds: Normal heart sounds. No murmur heard. Pulmonary: Effort: Pulmonary effort is normal. Breath sounds: Normal breath sounds. Abdominal: General: Abdomen is flat. Bowel sounds are normal. Palpations: Abdomen is soft. Genitourinary: Comments: on exam vulvar skin is thin,dry, no erythema , no lesions ,no signs of infection, no vaginal discharge Musculoskeletal: General: Normal range of motion. Cervical back: Normal range of motion and neck supple. Skin: General: Skin is warm. Neurological: General: No focal deficit present. Mental Status: She is alert and oriented to person, place, and time. Mental status is at baseline. Psychiatric: Mood and Affect: Mood normal. Behavior: Behavior normal. Assessment/Plan Problem List Items Addressed This Visit Essential hypertension Hyperlipidemia Relevant Medications atorvastatin (Lipitor) 20 MG tablet metFORMIN XR (Glucophage-XR) 500 MG 24 hr tablet Type 2 diabetes mellitus with other specified complication, unspecified whether terminal worker insulin use ([facility]) Relevant Medications atorvastatin (Lipitor) 20 MG tablet metFORMIN XR (Glucophage-XR) 500 MG 24 hr tablet Arthritis Relevant Medications Calcium Carb-Cholecalciferol (Calcium 600/Vitamin D3) 600-20 MG-MCG tablet leflunomide (Arava) 20 MG tablet Other Relevant Orders Referral to Rheumatology Health care maintenance Polyarthralgia Relevant Medications Calcium Carb-Cholecalciferol (Calcium 600/Vitamin D3) 600-20 MG-MCG tablet leflunomide (Arava) 20 MG tablet Other Relevant Orders Referral to Rheumatology Osteoporosis without current pathological fracture Relevant Medications atorvastatin (Lipitor) 20 MG tablet Calcium Carb-Cholecalciferol (Calcium 600/Vitamin D3) 600-20 MG-MCG tablet metFORMIN XR (Glucophage-XR) 500 MG 24 hr tablet Vulvar pruritus Relevant Medications ciclopirox (Penlac) 8 % solution Atrophic vulvitis Relevant Medications Calcium Carb-Cholecalciferol (Calcium 600/Vitamin D3) 600-20 MG-MCG tablet DULoxetine (Cymbalta) [address] capsule DULoxetine (Cymbalta) [address] capsule leflunomide (Arava) 20 MG tablet Other Visit Diagnoses Bladder wall thickening - Primary Relevant Medications Calcium Carb-Cholecalciferol (Calcium 600/Vitamin D3) 600-20 MG-MCG tablet DULoxetine (Cymbalta) [address] capsule DULoxetine (Cymbalta) [address] capsule leflunomide (Arava) 20 MG tablet Other Relevant Orders Referral to Urology Abnormal echocardiogram Relevant Medications atorvastatin (Lipitor) 20 MG tablet leflunomide (Arava) 20 MG tablet Other Relevant Orders Referral to Cardiology Other back pain, unspecified chronicity Relevant Medications Calcium Carb-Cholecalciferol (Calcium 600/Vitamin D3) 600-20 MG-MCG tablet leflunomide (Arava) 20 MG tablet Other Relevant Orders Referral to Physical Therapy Other chronic pain Relevant Medications DULoxetine (Cymbalta) [address] capsule DULoxetine (Cymbalta) [address] capsule Annual physical exam Relevant Orders Albumin, Random Urine W/Creatinine CBC Comprehensive Metabolic Panel Hemoglobin A1c Lipid Panel, Standard TSH with Reflex to Free T4 Vitamin B12 (Cobalamin) and Folate Panel, Serum Vitamin D, 25-Hydroxy, Total, Immunoassay documented in this encounter Plan of Treatment Upcoming Encounters Date Type Department Care Team (Late st Contact Info) Description 06/28/2025 9:00 AM EDT Office Visit [facility] [address] [place] [id number] Abi Baldwin MD [address] [place] [phone] 07/19/2025 10:00 AM EDT Medication Management [facility] [address] [place] [id number] Jennifer Drew, MaryD [address] [place] [id number] 09/20/2025 9:00 AM EST Office Visit [facility] [address] [place] [address] Nedra Pulido MD [address] [place] [address] 11/15/2025 9:30 AM EST Office Visit [facility] [address] [place] [address] Isaiah, Vanda, OD [address] [place] [address] Scheduled Orders Name Type Priority Associated Diagnoses Orde r Schedule Albumin, Random Urine W/Creatinine Lab Routine Annual physical exam Expected: 06/25/2025 (Approximate), Expires: 06/25/2026 CBC Lab Routine Annual physical exam Expected: 06/25/2025 (Approximate), Expires: 06/25/2026 Comprehensive Metabolic Panel Lab Routine Annual physical exam Expected: 06/25/2025 (Approximate), Expires: 06/25/2026 Hemoglobin A1c Lab Routine Annual physical exam Expected: 06/25/2025 (Approximate), Expires: 06/25/2026 Lipid Panel, Standard Lab Routine Annual physical exam Expected: 06/25/2025 (Approximate), Expires: 06/25/2026 TSH with Reflex to Free T4 Lab Routine Annual physical exam Expected: 06/25/2025 (Approximate), Expires: 06/25/2026 Vitamin B12 (Cobalamin) and Folate Panel, Serum Lab Routine Annual physical exam Expected: 06/25/2025 (Approximate), Expires: 06/25/2026 Vitamin D, 25-Hydroxy, Total, Immunoassay Lab Routine Annual physical exam Expected: 06/25/2025 (Approximate), Expires: 06/25/2026 Scheduled Referrals Name Type Priority Associated Diagnoses Orde r Schedule Referral to Podiatry Outpatient Referral Routine Type 2 diabetes mellitus without complication, unspecified whether chcf insulin use ([facility]) Expected: 06/25/2025 (Approximate), Expires: 06/25/2026 Referral to Urology Outpatient Referral Routine Bladder wall thickening Expected: 06/25/2025 (Approximate), Expires: 06/25/2026 Referral to Cardiology Outpatient Referral Routine Abnormal echocardiogram Expected: 06/25/2025 (Approximate), Expires: 06/25/2026 Referral to Rheumatology Outpatient Referral Routine Arthritis Polyarthralgia Expected: 06/25/2025 (Approximate), Expires: 06/25/2026 Referral to Physical Therapy Outpatient Referral Routine Other back pain, unspecified chronicity Expected: 06/25/2025 (Approximate), Expires: 06/25/2026 Referral to Pharmacy [facility] Outpatient Referral Routine Type 2 diabetes mellitus without complication, unspecified whether chcf insulin use ([facility]) Ordered: 06/25/2025 documented as of this encounter Procedures Procedure Name Priority Date/Time Associated Diagnosis Comments POCT GLYCATED HEMOGLOBIN, TOTAL Routine 06/25/2025 9:33 AM EDT Type 2 diabetes mellitus without complication, unspecified whether terminal worker insulin use ([facility]) POCT GLUCOSE Routine 06/25/2025 9:33 AM EDT Type 2 diabetes mellitus without complication, unspecified whether terminal worker insulin use ([facility]) documented in this encounter Results * POCT Glucose (06/25/2025 9:33 AM EDT) Glucose Blood, POC 62 60 - 200 mg/dL Blood Capillary blood specimen / Unknown 06/25/2025 9:33 AM EDT Nedra Carrillo MD POINT OF CARE RICHARD T ENTER/EDIT ORDERABLES Final Result * (ABNORMAL) POCT HGB A1C (06/25/2025 9:33 AM EDT) Hemoglobin A1C 5.8(A) 4.0 - 5.7 % Blood 06/25/2025 9:33 AM EDT Nedra Carrillo MD POINT OF CARE RICHARD T ENTER/EDIT ORDERABLES Final Result documented in this encounter Visit Diagnoses Diagnosis Bladder wall thickening- Primary Other specified disorder of bladder Type 2 diabetes mellitus without complication, unspecified whether chcf insulin use ([facility]) Arthritis Unspecified arthropathy, site unspecified Polyarthralgia Pain in joint, multiple sites Abnormal echocardiogram Nonspecific (abnormal) findings on radiological and other examination of other intrathoracic organs Other back pain, unspecified chronicity Mixed hyperlipidemia Osteoporosis without current pathological fracture, unspecified osteoporosis type Type 2 diabetes mellitus with other specified complication, unspecified whether chcf insulin use (CMS/[facility]) Other chronic pain Annual physical exam Routine general medical examination at a health care facility Essential hypertension Unspecified essential hypertension Health care maintenance Vulvar pruritus Pruritus of genital organs Atrophic vulvitis Atrophy of vulva documented in this encounter Additional Health Concerns Assessment Noted Time PHQ-9 Depression Total Score: 0 06/05/20 24 11:24 AM EDT documented as of this encounter Care Teams Earthmoving Labourer Relationship Specialty Start Date End Date Nedra Pulido MD [address] [place] [address] PCP - General Internal Medicine 03/23/23 documented as of this encounter
--- OUTSIDE RECORDS SUMMARY | 2025-06-27 09:41 | XMS_ITS | Encounter Summary ---
Author Organization [facility] Address [address] [place] [address] Support Name Relationship Address Phone Natacha Eisenberg Daughter [address] [place] [address] Care Team Providers Care Pharmacy Cashier Name Role Phone Kramer GerardoNedra G Primary Care Provider [phone] Reason for Visit * Reason Onset Date Comments PAC Surgery/procedure Scheduling 05/27/2023 Encounter Details Date Type Department Care Team (Late st Contact Info) Description 05/27/2023 Telephone [facility] Endoscopy [address] [place] [address] Telephone Intake, Staff PAC Surgery/procedure Scheduling Social History Tobacco Use Types Packs/Day Years Used Date Smoking Tobacco: Never Smokeless Tobacco: Never Alcohol Use Standard Drinks/Week Comments Never 0 (1 standard drink = 0.6 oz pur e alcohol) Comments No Sex and Gender Information Value Date Recorded Sex Assigned at Female 09/20/2024 11:06 AM EST Legal Sex Female 4:07 PM EST Gender Identity Female 09/20/2024 11:06 AM EST Sexual Orientation Other 09/20/2024 11 :06 AM EST documented as of this encounter Miscellaneous Notes * Telephone Encounter - Arti Lala - 05/27/2023 2:58 PM EDT Patient scheduling for colonoscopy pls contact patient to schedule. documented in this encounter Plan of Treatment Upcoming Encounters Date Type Department Care Team (Late st Contact Info) Description 09/10/2025 11:00 AM EST Office Visit [facility] [address] [place] [address] Junior Systems Engineer: Alyssa Restrepo 09/17/2025 10:20 AM EST Office Visit [facility] [address] [place] [address] Junior Systems Engineer: Iftikhar Haro MD [address] [place] [id number] 03/13/2026 10:40 AM EDT Follow-Up [facility] [address] [place] [address] Junior Systems Engineer: Anca Morelos DPM [address] [place] [address] documented as of this encounter Visit Diagnoses Not on filedocumented in this encounter Care Teams Pharmacy Cashier Relationship Specialty Start Date End Date Nedra Pulido PCP - General 01/04/24 documented as of this encounter
--- OUTSIDE RECORDS SUMMARY | 2025-06-27 09:41 | XMS_ITS | Clinical Summary ---
Author Organization [facility] Address [address] [place] [address] Support Name Relationship Address Phone Natacha Eisenberg Daughter [address] [place] [address] Care Team Providers Care Supply Chain Analyst Name Role Phone Kramer GerardoNedra Primary Care Provider [phone] Allergies No known active allergies Medications TRUEplus Lancets lancet 33 gauge TEST BLOOD SUGAR TWICE DAILY 11/27/19 22 Active Freestyle Lite test strips USE TO TEST BLOOD SUGAR TWICE DAILY 11/27/19 22 Active metFORMIN (GLUCOPHAGE) 500 mg tablet Take 1,000 mg by mouth 2 times a day. 11/18/19 22 Active Pentips 4 mm x 32 g USE DIRECTED 09/09/20 21 Active FreeStyle [place] Lite meter TEST BLOOD SUGAR TWICE DAILY 09/07/20 21 Active Alcohol Prep Pads pads, medicated Apply topically to the affected area 2 times a day. 11/27/19 22 Active ketoconazole (NIZORAL) 2% cream Apply topically to the affected area once a day. 12/31/19 22 Active acetaminophen (TYLENOL) 500 mg tablet Take 500 mg by mouth every 6 hours as needed for pain. patch Active prednisoLONE acetate (PRED FORTE) 1% ophthalmic suspensionIndicat ions:Pseudophakia of left eye,Pseudophakia of right eye Instill 1 drop into both eyes 4 times a day. 5 mL 1 04/27/20 22 Active meloxicam (MOBIC) 7.5 mg tablet SMARTSI Tablet(s) By Mouth Every Morning Active losartan (COZAAR) 25 mg tablet SMARTSI Tablet(s) By Mouth Every Morning Active calcium carbonate-vitamin D3 600 mg-20 mcg (800 unit) tablet Take 1 tablet by mouth daily. 11/30/19 24 Active B Complex 1, with folic acid, 0.4 mg tablet Take 1 tablet by mouth once a day. 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 90 tablet 3 06/04/20 24 Active atorvastatin (LIPITOR) 20 mg tabletIndications :Type 2 diabetes mellitus with other specified complication, unspecified whether penitentiary insulin use (HCC),Mixed hyperlipidemia Take 1 tablet (20 mg total) by mouth nightly. 90 tablet 3 06/04/[address] (CYMBALTA) 60 mg capsuleIndication s:Neuropathy Take 1 capsule (60 mg total) by mouth once a day. 90 capsule 3 06/04/20 24 Active lidocaine (LIDODERM) 5% patch APPLY 1 PATCH TOPICALLY TO SKIN, LEAVE ON FOR 12 HOURS AND OFF FOR 12 HOURS DIRECTED Active methylPREDNISolon e (MEDROL) 4 mg tabletIndications :Polyarthralgia TAKE 1 TABLET BY MOUTH ONCE DAILY WITH FOOD 90 tablet 05/24/20 25 Active leflunomide (ARAVA) 20 mg tabletIndications :Polyarthralgia Take 1 tablet (20 mg total) by mouth once a day. 90 tablet 1 06/26/20 25 Active leflunomide (Arava) 20 mg tabletIndications :Polyarthralgia Take 1 tablet (20 mg total) by mouth once a day. Take with food 90 tablet 1 11/30/19 25 025 Discontinued Active Problems Problem Noted Date Diagnosed Date Age-related osteoporosis wit isadora current pathological fracture 11/29/2024 Assessment & Plan (11/30/2024 12:40 PM EST): Very low T-score on recent DXA. Likely low on ca intake, post-menopausal. On systemic glucocorticoid although hope we can get off in time. -labs -aim vit D 30-50 -aim total ca 1,200mg daily --[facility] website link given -recent x-ray t-/l-spine Jul 2024 without report of compression fracture -ongoing activity -we have discussed options and ideal to start with anabolic --she prefers the thought of romosozumab rather than PTH-based therapy ---once a month injection in clinic to start ----potential adverse effect include but not limited to injection site reaction, changes in calcium levels, headache, unable to use if MD/stroke in past year -----we will start auth Hammertoes of both feet 01/25/2024 Neuropathy 01/25/2024 Onychomycosis 01/25/2024 Long-term use of high-risk medication 09/08/2023 Assessment & Plan (11/30/2024 12:41 PM EST): Leflunomide, systemic steroid -labs today -hep B non-immune, hep C neg, quant neg Mar 2023 -re-order DXA for baseline --referral given so can do locally which may make things easier -Vaccines: Prevnar 13: PCV 19 Apr 2023 Pneumovax: PCV 19 Apr 2023 Zoster: Apr 2023Dec 2023 Flu: declines today COVID: requires latest booster Assessment & Plan (08/08/2024 12:04 PM EDT): Leflunomide, systemic steroid -repeat labs in a month -hep B non-immune, hep C neg, quant neg Mar 2023 -re-order DXA for baseline --referral given so can do locally which may make things easier -Vaccines: Prevnar 13: PCV 19 Apr 2023 Pneumovax: PCV 19 Apr 2023 Zoster: Apr 2023Dec 2023 Flu: reports believes had with PCP COVID: 2 doses monovalent, 1 dose bivalent booster, 1 dose booster Assessment & Plan (02/03/2024 12:06 PM EDT): Leflunomide, systemic steroid -labs today -hep B non-immune, hep C neg, quant neg Mar 2023 -order DXA for baseline --number given to schedule -Vaccines: Prevnar 13: PCV 19 Apr 2023 Pneumovax: PCV 19 Apr 2023 Zoster: Apr 2023Dec 2023 Flu: not yet flu season COVID: 2 doses monovalent, 1 dose bivalent booster, 1 dose booster Assessment & Plan (11/18/2023 12:43 PM EST): Leflunomide, systemic steroid -labs Oct 2023 stable -hep B non-immune, hep C neg, quant neg Mar 2023 -order DXA for baseline -Vaccines: Prevnar 13: PCV 19 Apr 2023 Pneumovax: PCV 19 Apr 2023 Zoster: dose 30 Apr 2023 Flu: declined today COVID: 2 doses monovalent, 1 dose bivalent booster Polyarthralgia 01/02/2022 Assessment & Plan (11/30/2024 12:41 PM EST): Here for joint pains. 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 When initially seen in Dec 2021 there were no deformities of the hands and patient agrees with this. History was also very different at that time (and one more so of degenerative changes). Aspiration of knee with non-inflammatory fluid. Now, maybe starting summer/fall 2021 with progressive changes in hands and history today does sound more inflammatory, however, serologies and inflammatory markers remain unimpressive as of this summer. Still some question in mind re: is there another underlying cause given serologies all negative but good that initially feeling improved but now regression again having not had access to medications -labs -leflunomide 20mg daily -duloxetine 60mg daily -continue methylprednisolone 4mg daily while again we sort out refills Assessment & Plan (08/08/2024 12:06 PM EDT): Here for joint pains. 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 When initially seen in Dec 2021 there were no deformities of the hands and patient agrees with this. History was also very different at that time (and one more so of degenerative changes). Aspiration of knee with non-inflammatory fluid. Now, maybe starting summer/fall 2021 with progressive changes in hands and history today does sound more inflammatory, however, serologies and inflammatory markers remain unimpressive as of this summer. Still some question in mind re: is there another underlying cause given serologies all negative but good that initially feeling improved but now regression again having not had access to medications -will speak to pharmacy as scripts were sent, but aim to restart --leflunomide 20mg daily --duloxetine 60mg daily -continue methylprednisolone 4mg daily while we sort this out Assessment & Plan (02/03/2024 12:06 PM EDT): Here for joint pains. 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 When initially seen in Dec 2021 there were no deformities of the hands and patient agrees with this. History was also very different at that time (and one more so of degenerative changes). Aspiration of knee with non-inflammatory fluid. Now, maybe starting summer/fall 2021 with progressive changes in hands and history today does sound more inflammatory, however, serologies and inflammatory markers remain unimpressive as of this summer. Still some question in mind re: is there another underlying cause given serologies all negative but good that feeling improved. -labs today -continue leflunomide 20mg daily -reduce methylprednisolone to 2mg daily Assessment & Plan (11/18/2023 12:43 PM EST): Here for joint pains. 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 When initially seen in Dec 2021 there were no deformities of the hands and patient agrees with this. History was also very different at that time (and one more so of degenerative changes). Aspiration of knee with non-inflammatory fluid. Now, maybe starting summer/fall 2021 with progressive changes in hands and history today does sound more inflammatory, however, serologies and inflammatory markers remain unimpressive as of this summer. Still some question in mind re: is there another underlying cause given serologies all negative but good that feeling improved. -increase leflunomide to 20mg daily -continue methylprednisolone at 4mg daily Assessment & Plan (09/07/2023 12:34 PM EST): Here for joint pains. 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 When initially seen in Dec 2021 there were no deformities of the hands and patient agrees with this. History was also very different at that time (and one more so of degenerative changes). Aspiration of knee with non-inflammatory fluid. Now, maybe starting summer/fall 2021 with progressive changes in hands and history today does sound more inflammatory, however, serologies and inflammatory markers remain unimpressive as of this summer. Given how quickly this seems to have developed, would also give consideration to a paraneoplastic phenomenon. -repeat x-rays -repeat inflammatory makers -stop systemic NSAID -we have discussed starting both methylprednisolone for short term relief --12mg daily for one month then 8mg daily for one month then 4mg daily for one month --as well as leflunomide daily for longer term relief ---20mg daily ---potential adverse effects include but not limited to gi irritation, changes in blood count and liver tests, infection ---to repeat labs in 1 month at [facility] Assessment & Plan (01/04/2022 6:52 PM EST): Here for joint pains. 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 Reports swelling in the morning but none on exam today. History otherwise is not compelling for inflammatory arthritis. Labs from PCP so far also unrevealing for an inflammatory arthritis. -discussed aspiration of L knee --agreeable --see procedure note below -round out labs -x-ray of hands, shoulders and feet as most tender areas -we will discuss next steps in context of these investigations --to call daughter Encounters Date Type Department Care Team Description 06/25/2025 Refill [facility] [address] [place] [id number] Access Spec: Iftikhar Haro MD Polyarthralgia 05/23/2025 Refill [facility] [address] [place] [address] Access Spec: Lucy Bertrand MD Polyarthralgia 04/29/2025 Telephone [facility] [address] [place] [id number] Access Spec: Britt Martin PA 04/03/2025 Results Follow-Up [facility] [address] [place] [id number] Access Spec: Britt Martin PA 04/01/2025 4:00 PM EDT Office Visit [facility] [address] [place] [address] Access Spec: Britt Martin PA Bladder wall thickening (Primary Dx) from Last 3 Months Immunizations Immunization Administration Dates Next Due Covid-19, Pfizer, mRNA, Mower valent, PF 30 mcg/0.3 mL dose (for ages 12 and older) 07/30/2021,07/07/2021 Hep B, Unspecified 12/30/2021 Hepatitis B adult (ENGERIX-B ADULT) vaccine 1 mL IM 12/30/2021 Influenza, Injectable, Quadrivalent, Preservativ e Free 09/07/2021,12/11/2020 Pneumococcal conjugate PCV20 ,polysaccharide [id number] conjugate, adjuvant, PF (Prevnar 20) 04/29/2023 RSV, Bivalent, Protein Subun it RSVpreF, Diluent Reconstituted, 0.5 mL, PF 12/01/2023 Tetanus and Diphtheria Toxoi ds, Adsorbed, Preservative Free (2 Lf of Tetanus Toxoid and 2 Lf of Diphtheria Toxoid) 12/30/2021 Zoster Vaccine Recombinant 12/01/2023,05/23/2023 Family History Medical History Relation Name Comments Arthritis Mother's Brother Relation Name Status Comments Mother's Brother Social History Tobacco Use Types Packs/Day Years Used Date Smoking Tobacco: Never Passive Smoke Exposure: Never Smokeless Tobacco: Never Tobacco Cessation:Counseling Given: Not Answered Alcohol Use Standard Drinks/Week Comments Never 0 (1 standard drink = 0.6 oz pur e alcohol) Comments No Sex and Gender Information Value Date Recorded Sex Assigned at Female 09/20/2024 11:06 AM EST Legal Sex Female 4:07 PM EST Gender Identity Female 09/20/2024 11:06 AM EST Sexual Orientation Other 09/20/2024 11 :06 AM EST Last Filed Vital Signs Vital Sign Reading Time Taken Comments Blood Pressure 118/73 04/01/2025 3:46 PM EDT Pulse 96 04/01/2025 3:46 PM EDT Temperature 37.3 C (99.1 F) 11/30/2024 11:28 AM EST Respiratory Rate 8 11/16/2023 5:00 PM EST Oxygen Saturation 95% 01/19/2024 2:51 PM EDT Inhaled Oxygen Concentration - - Weight 60.8 kg (134 lb) 11/30/2024 11:28 AM EST Height 149.9 cm (4' 11 ) 11/30/2024 11:28 AM EST Body Mass Index 27.06 11/30/2024 11:28 AM EST Plan of Treatment Upcoming Encounters Date Type Department Care Team (Late st Contact Info) Description 09/10/2025 11:00 AM EST Office Visit [facility] [address] [place] [address] Access Spec: Alyssa Restrepo 09/17/2025 10:20 AM EST Office Visit [facility] [address] [place] [address] Access Spec: Iftikhar Haro MD [address] [place] [address] 03/13/2026 10:40 AM EDT Follow-Up [facility] [address] [place] [address] Access Spec: Anca Morelos DPM [address] [place] [address] Health Maintenance Due Date Last Done Comments Cervical Cancer Screening 1960 Cologuard 1960 HPV and Pap Smear 1960 Pap Smear 1960 Sigmoidoscopy 1960 Urine Microalbumin 1970 DTaP,Tdap,and Td Vaccines (1 - Tdap) 12/31/2021 12/30/2021 Hepatitis B Vaccines (2 of 3 - 19+ 3-dose series) 01/27/2022 12/30/2021, 12/30/2021 Ophthalmology Exam 04/27/2023 04/27/2022, 0 04/27/2022, 04/27/2022, Additional history exists COVID-19 Vaccine (2023-2 5 season) 2024 11/30/2023, 04/29/2023, 07/30/2021, Additional history exists Alcohol/Substance Use Screening 10/31/2024 Depression Screening and Follow-Up 10/31/2024 Health Care Proxy Review 10/31/2024 Social Drivers of Health Diana ual Screening 10/31/2024 Mammogram 06/02/2025 06/02/2023, 06/02/2023 Influenza Vaccine (#1) 2025 09/07/2021, 2020 FOBT / Fit Test 07/20/2025 07/20/2024, 04/2 02/2024, 04/29/2023 Hemoglobin A1C 08/07/2025 02/05/2025, 08/0 02/2024, 11/30/2023, Additional history exists Basic Metabolic Panel 11/30/2025 11/30/2024 , 07/20/2024, 02/03/2024, Additional history exists Colon Cancer Screening 11/16/2033 Colonoscopy 11/16/2033 11/16/2023 HIV Screening Completed 04/29/2023, 04/02, 09/08/2021 Hepatitis C Screening Completed 04/29/2023 Pneumococcal Vaccine: 50+ Years Completed RSV Vaccine (60+ years old a nd patients) Completed 12/01/2023 Zoster Vaccines Completed 12/01/2023, 05/23/2023 Osteoporosis Screening Completed 11/12/2024 Medical Devices Implanted Type Area Aquatic Physiotherapist Device Identifier Shelf Expiration Date Model / Serial / Lot Lens Intraocular Ashperic Natural Single Piece Acrylic With Blue Light Filter [id number] 22.0d - [id number] - [id number] Implanted:Qty: 1 on 04/14/2022 by Nadir Mcintosh MD at [facility] Lens Right: Eye JOSHUA 01/30/2027 SN60WF 22.0 / [id number] / Lens Intraocular Ashperic Natural Single Piece Acrylic With Blue Light Filter [id number] 22.0d - [id number] - [id number] Implanted:Qty: 1 on 04/21/2022 by Nadir Mcintosh MD at [facility] Lens Left: Eye JOSHUA 02/07/2027 SN60WF 22.0 / [id number] / Procedures * Due to [place] state law, this organization might not be sharing negative HIV tests. Procedure Name Priority Date/Time Associated Diagnosis Comments URINALYSIS W/MICROSCOPIC Routine 04/01/2025 4:45 PM EDT Bladder wall thickening URINE CULTURE, ROUTINE Routine 04/01/2025 4:45 PM EDT Bladder wall thickening COMPREHENSIVE METABOLIC PANEL Routine 11/30/2024 12:55 PM EST Polyarthralgia Long-term use of high-risk medication Age-related osteoporosis without current pathological fracture DEXA AXIAL AND TBS Routine 11/12/2024 12 :28 PM EST Post-menopausal POCT GLYCOSYLATED HEMOGLOBIN (HGB A1C) Routine 06/04/2024 10:23 AM EDT COLONOSCOPY 11/16/2023 from Last 3 Months or Most Recently Relevant to Health Maintenance Results * Due to [place] state law, this organization might not be sharing negative HIV tests. * (ABNORMAL) Urinalysis With Microscopic (No Culture)-ARTIE ONLY (04/01/2025 4:45 PM EDT) Color, Urine Yellow Colorless, Light Yellow, Yellow, Dark Yellow 04/01/2025 6:52 PM EDT [facility] Clarity, Urine Slightly Cloudy(A) Clear 04/01/2025 6:52 PM EDT [facility] Specific [place], Urine 1.024 <1.030 04/01/2025 6:52 PM EDT [facility] pH, Urine 8.0 4.6 - 8.0 04/01/2025 6:52 PM EDT [facility] Protein, Urine Trace(A) Negative 04/01/2025 6:52 PM EDT [facility] Glucose, Urine Normal Normal 04/01/2025 6:52 PM EDT [facility] Ketones, Urine Negative Negative 04/01/2025 6:52 PM EDT [facility] Bilirubin, Urine Negative Negative 04/01/2025 6:52 PM EDT [facility] Blood, Urine Negative Negative 04/01/2025 6:52 PM EDT [facility] Nitrite, Urine Negative Negative 04/01/2025 6:52 PM EDT [facility] Urobilinogen, Urine Normal Normal 04/01/2025 6:52 PM EDT [facility] Leukocyte Esterase, Urine Negative Negative 04/01/2025 6:52 PM EDT [facility] WBC, Urine 0 0 - 2 /HPF 04/01/2025 6:52 PM EDT [facility] RBC, Urine 0 0 - 2 /HPF 04/01/2025 6:52 PM EDT [facility] Hyaline Casts, Urine 0 0 - 2 /LPF 04/01/2025 6:52 PM EDT [facility] Bacteria, Urine None Seen None /HPF /HPF 04/01/2025 6:52 PM EDT [facility] Squamous Epithelial Cells, Urine 2 /HPF 04/01/2025 6:52 PM EDT [facility] Calcium Oxalate Crystals, Urine Few /HPF 04/01/2025 6:52 PM EDT [facility] Mucus, Urine Rare /LPF 04/01/2025 6:52 PM EDT [facility] Urine Voided urine specimen / Unknown Non-Blood Collection / Unknown 04/01/2025 4:45 PM EDT 04/01/2025 6:24 PM EDT us Britt Menard [place] LAB URINE ORDERABLES Final Resu lt [facility] [address] [place] [address], [place] * Urine culture (04/01/2025 4:45 PM EDT) Pathologist [facility] Culture Mixed genital mahogany isolated. These superficial bacteria are not indicative of a urinary tract infection. No further organism identification is warranted on this specimen. 04/03/2025 5:00 AM EDT [facility] Urine Voided urine specimen / Unknown Non-Blood Collection / Unknown 04/01/2025 4:45 PM EDT 04/01/2025 6:24 PM EDT [facility] - 04/03/2025 5:00 AM EDT [facility] Received Date: MICRO NUMBER: [id number] SPECIMEN QUALITY: Adequate SOURCE: URINE VOIDED STATUS: FINAL If clinically indicated, recollect clean-catch, mid-stream urine and transfer immediately to Urine Culture Transport Tube. Britt Menard [place] LAB MICROBIOLOGY - GENERAL ORDE [facility] Final Result Performing Organization Address City/[facility]/ZIP Co de Phone Number [facility] [address], [place] [address], [place] [phone] [facility] [address], [place] [address], [place] [phone] * (ABNORMAL) Comprehensive Metabolic Panel (11/30/2024 12:55 PM EST) Pathologist [facility] NA 140 135 - 145 mmol/L 11/30/2024 1:58 PM EST [facility] K 3.9 3.5 - 5.3 mmol/L 11/30/2024 1:58 PM EST [facility] Cl 106 98 - 107 mmol/L 11/30/2024 1:58 PM EST [facility] CO2 24 22 - 32 mmol/L 11/30/2024 1:58 PM EST [facility] Anion Gap 10 5 - 15 11/30/2024 1:58 PM [facility] Glucose 84 65 - 99 mg/dL 11/30/2024 1:58 PM [facility] Creatinine 0.61 0.50 - 1.20 mg/dL 11/30/2024 1:58 PM [facility] Calcium 9.8 8.6 - 10.5 mg/dL 11/30/2024 1:58 PM [facility] Total Protein 6.8 6.0 - 8.0 g/dL 11/30/2024 1:58 PM [facility] Albumin 3.9 3.5 - 5.2 g/dL 11/30/2024 1:58 PM [facility] Bilirubin, Total <0.2(L) 0.2 - 1.2 mg/dL 11/30/2024 1:58 PM [facility] Alkaline Phosphatase 92 35 - 129 U/L 11/30/2024 1:58 PM [facility] AST 28 10 - 40 U/L 11/30/2024 1:58 PM [facility] ALT 25 10 - 40 U/L 11/30/2024 1:58 PM [facility] BUN 17 7 - 23 mg/dL 11/30/2024 1:58 PM [facility] eGFR >90 >=60 mL/min/1 .73m2 11/30/2024 1:58 PM [facility] Comment:The estimated glomer ular filtration rate (eGFR) is calculated using a new formula developed by the NKF-ASN task force to eliminate race-based correction factors. The new formula uses serum/plasma creatinine, age, and gender to determine eGFR. A value below 60mls/min might indicate kidney disease and will be flagged. For additional information, see Mable et al, Am J Kidney Dis. 2021;79(2):268- 288, A Unifying Approach for GFR estimation: Recommendations of the NKF-ASN Task Force on Reassessing the Inclusion of Race in Diagnosing Kidney Disease . Globulin, Total 2.9 2.1 - 4.2 g/dL 11/30/2024 1:58 PM EST [facility] A/G Ratio 1.3(L) 1.5 - 3.0 11/30/2024 1:58 PM EST [facility] Blood Structure of peripheral vein / Unknown Venipuncture / Unknown 11/30/2024 12:55 PM EST 11/30/2024 1:27 PM EST us Iftikhar Robertson MD LAB BLOOD ORDERABLES Final Result [facility] [address] [place] [address], [place] * DXA Axial and TBS (11/12/2024 12:28 PM EST) Anatomical Region Laterality Modality Bone Densitometr y 11/12/2024 7:08 PM EST Impressions 11/12/2024 7:09 PM EST This patient has osteoporosis. Consider bone health evaluation and management by Endocrinology or Rheumatology. Thank you for the courtesy of this referral. If this radiology report contains a blank impression section, it is an incomplete radiology report. Please contact the interpreting radiologist or applicable radiology division as soon as possible to obtain the completed interpretation. Workstation ID: [id number] Narrative 11/12/2024 7:09 PM EST EXAM: BONE MINERAL DENSITY PROCEDURE: The bone mineral density (BMD) of the spine and proximal right femur was determined using an external X-ray source([facility]). SITE: [place] FINDINGS: L1-L4: BMD 0.70gm/cm2 T-Score -3.1 Z-score: -1.4 Femoral neck: BMD 0.57gm/cm2 T-Score -2.5 Z-score: -1 Trabecular bone score (TBS) L1-L4: TBS 1.24 Z-score: -0.8 (normal microarchitecture: >1.31; degraded: <1.24) The World Health Organization (WHO) defines osteoporosis (as studied in post-menopausal women) as BMD with a T value of (-)2.5 or less at any site. Osteopenia is defined by a T value between (-)1.1 and (-)2.4. In general, it is recommended that patients receive approximately 1000 mg of calcium daily, either from dairy products or supplements (including multiple vitamin). Patients should consider supplementing with vitamin D. Vitamin D recommendations should be discussed with Health Care Provider and measurement of vitamin D levels should be considered. Careful weight-bearing exercise is also useful in maintaining bone mass and to help protect against falls. Resulting Agency Comment [id number] Procedure Note Chun Harrison MD - 11/12/2024 EXAM: BONE MINERAL DENSITY PROCEDURE: The bone mineral density (BMD) of the spine and proximal rightfemur was determined using an external X-ray source(Hologic). SITE: [place] FINDINGS: L1-L4: BMD 0.70gm/cm2 T-Score -3.1 Z-score: -1.4 Femoral neck: BMD 0.57gm/cm2 T-Score -2.5 Z-score: -1 Trabecular bone score (TBS) L1-L4: TBS 1.24 Z-score: -0.8 (normal microarchitecture:>1.31; degraded: <1.24) The World Health Organization (WHO) defines osteoporosis (as studied inpost-menopausal women) as BMD with a T value of (-)2.5 or less at anysite. Osteopenia is defined by a T value between (-)1.1 and (-)2.4. In general, it is recommended that patients receive approximately 1000 mgof calcium daily, either from dairy products or supplements (includingmultiple vitamin). Patients should consider supplementing with vitamin D.Vitamin D recommendations should be discussed with Health Care Providerand measurement of vitamin D levels should be considered. Carefulweight-bearing exercise is also useful in maintaining bone mass and tohelp protect against falls. IMPRESSION: This patient has osteoporosis. Consider bone health evaluation and management by Endocrinology orRheumatology. Thank you for the courtesy of this referral. If this radiology report contains a blank impression section, it is anincomplete radiology report. Please contact the interpreting radiologistor applicable radiology division as soon as possible to obtain thecompleted interpretation. Workstation ID: [id number] us Iftikhar Robertson MD IMG DXA PROCEDURES Final Re sult * POCT Glycosylated Hemoglobin (HGB A1C), interfaced (06/04/2024 10:23 AM EDT) Hemoglobin A1C, POCT 5.6 <=5.6 % 06/04/2024 10:29 AM EDT [facility] Comment: A1C Recommendation for Non- Adults with Diabetes: <7.0% ADA 2011 Standards of Medical Care in Diabetes Blood 06/04/2024 10:2 3 AM EDT 06/04/2024 10:29 AM EDT us Ibrahima Marshall MD LAB POCT ORDERABLES - DEVICE F inal Result [facility] [address] [place] [address], [place] * COLONOSCOPY (11/16/2023) Narrative Procedure Note Albert Boyer DO - 11/16/2023 3:10 PM EST [facility] Gastroenterology Patient Name: Adina Eisenberg Procedure Date: 11/16/2023 3:10 PM Date of : 1960 Admit Type: Outpatient Age: 63 Room: [place] [address] Gender: Female Note Status: Finalized Attending MD: Albert Boyer DO Procedure: Colonoscopy Indications: Screening for colorectal malignant neoplasm Comorbidities Providers: Albert Boyer DO, Shiv Gandhi (Fellow) Referring MD: Cathy Pinzon (Referring MD) Requesting Provider: Medicines: Midazolam 5 mg IV, Fentanyl 125 micrograms IV, Diphenhydramine 50 mg IV Complications: No immediate complications. Estimated Blood Loss: Estimated blood loss was minimal. Procedure: Pre-Anesthesia Assessment: - Prior to the procedure, a History and Physicalwas performed, and patient medications and allergieswere reviewed. The patient is competent. The risks and benefits of the procedure and the sedation optionsand risks were discussed with the patient. Allquestions were answered and informed consent was obtained. Patient identification and proposed procedure were verified by the physician, the nurse and the household appliances service technician in the procedure room. Mental Status Examination: alert and oriented. AirwayExamination: normal oropharyngeal airway and neck mobility. Respiratory Examination: clear to auscultation. CV Examination: normal. Prophylactic Antibiotics: The patient does not require prophylactic antibiotics. Prior Anticoagulants: The patient has taken no anticoagulant or antiplatelet agents. ASA Grade Assessment: II - A patient with mild systemicdisease. After reviewing the risks and benefits, the patient was deemed in satisfactory condition to undergo the procedure. The anesthesia plan was to use moderate sedation / analgesia (conscious sedation).Immediately prior to administration of medications, the patient was re-assessed for adequacy to receive sedatives.The heart rate, respiratory rate, oxygen saturations, blood pressure, adequacy of pulmonary ventilation,and response to care were monitored throughout the procedure. The physical status of the patient was re-assessed after the procedure. After I obtained informed consent, the scope was passed under direct vision. Throughout theprocedure, the patient's blood pressure, pulse, and oxygen saturations were monitored continuously. The Colonoscope was introduced through the anus and advanced to the cecum, identified by appendiceal orifice and ileocecal valve. The colonoscopy was performed without difficulty. The patient tolerated the procedure well. The quality of the bowel preparation was good. Findings: Skin tags were found on perianal exam. Multiple small and large-mouthed diverticula were found in thesigmoid colon and ascending colon. A 7 mm polyp was found in the descending colon. The polyp wassessile. The polyp was removed with a cold snare. Resection and retrieval were complete. Internal hemorrhoids were found during retroflexion. The hemorrhoids were small. Impression: - Perianal skin tags found on perianal exam. - Diverticulosis in the sigmoid colon and in the ascending colon. - One 7 mm polyp in the descending colon, removedwith a cold snare. Resected and retrieved. - Internal hemorrhoids. Recommendation: - Discharge patient to home (ambulatory). - Resume previous diet. - Continue present medications. - Await pathology results. - Repeat colonoscopy in 7 years for surveillance. Albert Boyer DO 11/16/2023 4:37:07 PM This report has been signed electronically. Number of Addenda: 0 Note Initiated On: 11/16/2023 3:10 PM Albert Boyer DO PROVATION PROCEDURES Final Re sult from Last 3 Months or Most Recently Relevant to Health Maintenance Insurance [address] [address] [facility] Advance Directives Documents on File Type Date Recorded Patient Paper Machine Supervisor Expl apolinar Health Care Proxy 04/21/2022 1:26 PM 04-21 * Full Code (Latest Code Status on File) Date Activated Date Inactivated Comments 04/21/2022 12:29 PM 04/21/2022 5:06 PM * Full Code Date Activated Date Inactivated Comments 04/14/2022 7:38 AM 04/14/2022 12:14 PM Care Teams Supply Chain Analyst Relationship Specialty Start Date End Date Nedra Pulido PCP - General 01/04/24
--- OUTSIDE RECORDS SUMMARY | 2025-06-27 09:41 | XMS_ITS | Encounter Summary ---
Author Organization [facility] Address [address] [place] [address] Support Name Relationship Address Phone Natacha Eisenberg Daughter [address] [place] [address] Care Team Providers Care Outreach Analyst Name Role Phone Williams Carrillo Deb Primary Care Provider [phone] Encounter Details Date Type Department Care Team (Latest Contact Info) Description 11/09/2024 Transcribe Orders [facility] Physician Referral [facility] [address] [place] [address] Pancho Fontaine [address] [place] [address] Bladder wall thickening (Primary Dx) Social History Tobacco Use Types Packs/Day Years Used Date Smoking Tobacco: Never Passive Smoke Exposure: Never Smokeless Tobacco: Never Alcohol Use Standard Drinks/Week Comments Never 0 (1 standard drink = 0.6 oz pur e alcohol) Comments No Sex and Gender Information Value Date Recorded Sex Assigned at Female 09/20/2024 11:06 AM EST Legal Sex Female 4:07 PM EST Gender Identity Female 09/20/2024 11:06 AM EST Sexual Orientation Other 09/20/2024 11 :06 AM EST documented as of this encounter Plan of Treatment Upcoming Encounters Date Type Department Care Team (Late st Contact Info) Description 09/10/2025 11:00 AM EST Office Visit [facility]rology [facility] [address] [place], [place] [phone] Dimmer Board Operator: Alyssa Restrepo 09/17/2025 10:20 AM EST Office Visit [facility] Rheumatology Clinic [address] [place], [place] [phone] Dimmer Board Operator: Iftikhar Haro MD [address] [place] [address] 03/13/2026 10:40 AM EDT Follow-Up [facility] Podiatry [address] [place] [address] Dimmer Board Operator: Anca Morelos DPM [address] [place], [place] [phone] documented as of this encounter Visit Diagnoses Diagnosis Bladder wall thickening- Primary Other specified disorder of bladder documented in this encounter Care Teams Outreach Analyst Relationship Specialty Start Date End Date Nedra Pulido PCP - General 01/04/24 documented as of this encounter
--- OUTSIDE RECORDS SUMMARY | 2025-06-27 09:41 | XMS_ITS | Encounter Summary ---
Author Organization [employer] Address [address] [facility] 7[address] [place] [address] Care Team Providers Care High School Industrial Arts Teacher Name Role Phone Mariluz Cotton TILE BURNER Primary Care Provider Nedra Richard MD Primary Care Pro vider Encounter Details Date Type Department Care Team (Late st Contact Info) Description 01/31/2023 Orders Only [facility] MEDICINE [address] [place] [phone] Janet Leija LPN Social History Tobacco Use Types Packs/Day Years Used Date Smoking Tobacco: Never Assessed Comments Unknown Sex and Gender Information Value Date Recorded Sex Assigned at Female 08/30/2022 10:39 AM EDT Legal Sex Female 10:39 AM EDT Gender Identity Female 08/30/2022 10:39 AM EDT Sexual Orientation Straight 08/30/2022 10 :39 AM EDT documented as of this encounter Plan of Treatment Upcoming Encounters Date Type Department Care Team (Late st Contact Info) Description 06/28/2025 9:00 AM EDT Office Visit [facility] MEDICINE [address] [place] [phone] Abi Baldwin MD [address] [place] [address] 07/19/2025 10:00 AM EDT Medication Management [facility] MED[facility]INE [address] [place] [address] Jennifer Drew PharmD [address] [place] [address] 09/20/2025 9:00 AM EST Office Visit [facility] MEDICINE [address] [place] [address] Nedra Pulido MD [address] [place] [address] 11/15/2025 9:30 AM EST Office Visit [facility] OPTOMETRY [address] [place], [place] [phone] Vanda Colon, OD [address] [place] [address] documented as of this encounter Visit Diagnoses Not on filedocumented in this encounter Care Teams [employer] Industrial Arts Teacher Relationship Specialty Start Date End Date Mariluz Cotton FNP PCP - General Family Medicine 07/15/22 03/22/23 Nedra Pulido MD [address] [place], [place] [phone] PCP - General Internal Medicine 03/23/23 documented as of this encounter
--- OUTSIDE RECORDS SUMMARY | 2025-06-27 09:41 | XMS_ITS | Encounter Summary ---
Author Organization [employer] Address [address] [facility] 7t [place] [address] Care Team Providers Care Shop Laborer Name Role Phone Mariluz Cotton SODA TESTER Primary Care Provider Nedra Richard MD Primary Care Pro vider Encounter Details Date Type Department Care Team (Late st Contact Info) Description 12/30/2022 Orders Only [facility] [address] [place] [address] Nikole Hartman LPN Social History Tobacco Use Types Packs/Day [...] Description 06/28/2025 9:00 AM EDT Office Visit [facility] MEDICINE [address] [place] [phone] Abi Baldwin MD [address] [place] [phone] 07/19/2025 10:00 AM EDT Medication Management [facility] MEDICINE [address] [place] [address] [phone] Jennifer Drew PharmD [address] [place], [place] [phone] 09/20/2025 9:00 AM EST Office Visit [facility] MEDICINE [address] [place] [address] Nedra Pulido MD [address] [place] [address] 11/15/2025 9:30 AM EST Office Visit [facility] OPTOMETRY [address] [place], [place] [phone] Vanda Colon, OD [address] [place], [place] [phone] documented as of this encounter Visit Diagnoses Not on filedocumented in this encounter Care Teams Shop Laborer Relationship Specialty Start Date End Date Mariluz Cotton FNP PCP - General Family Medicine 07/15/22 03/22/23 Nedra Pulido MD [address] [place], [place] [phone] PCP - General Internal Medicine 03/23/23 documented as of this encounter
--- OUTSIDE RECORDS SUMMARY | 2025-06-27 09:42 | XMS_ITS | Encounter Summary ---
Author Organization [employer] Address [address] [facility] [address] 7[address] [place] [address] Care Team Providers Care Access Rn Name Role Phone Nedra Pulido MD Primary Care Pro vider Encounter Details Date Type Department Care Team (Late st Contact Info) Description 10/21/2024 Orders Only [facility] MEDICINE [address] [place] [address] ProviderCamron MD Social History Tobacco Use Types Packs/Day Years Used Date Smoking Tobacco: Former Cigarettes Passive Smoke Exposure: Never Smokeless Tobacco: Current Comments:Smoked x 1 year at her 20 [...] Access Q2 Not on file 07/02/2024 Comments Unknown Sex and Gender Information Value [...] Description 06/28/2025 9:00 AM EDT Office Visit [facility] MEDICINE [address] [place] [address] Abi Baldwin MD [address] [place] [address] 07/19/2025 10:00 AM EDT Medication Management [facility] MED[facility]INE [address] [place] [phone] Jennifer Drew, PharmD [address] [place] [address] 09/20/2025 9:00 AM EST Office Visit [facility] MED[facility]INE [address] [place] [address] Nedra Pulido MD [address] [place] [address] 11/15/2025 9:30 AM EST Office Visit [facility] OPTOMETRY [address] [place] [address] Vanda Colon, KARLA [address] [place] [phone] documented as of this encounter Procedures Procedure Name Priority Date/Time Associated Diagnosis Comments HM COLONOSCOPY Routine 11/16/2023 5:57 PM EST documented in this encounter Results * Hm Colonoscopy (11/16/2023 5:57 PM EST) us Historical Provider HEALTH MAINTENANCE Final Result documented in this encounter Visit Diagnoses Not on filedocumented in this encounter Additional Health Concerns Assessment Noted Time PHQ-9 Depression Total Score: 0 06/05/20 24 11:24 AM EDT documented as of this encounter Care Teams Access Rn Relationship Specialty Start Date End Date Nedra Pulido MD [address] [place] [phone] PCP - General Internal Medicine 03/23/23 documented as of this encounter
--- OUTSIDE RECORDS SUMMARY | 2025-06-27 09:42 | XMS_ITS | Encounter Summary ---
Author Organization [employer] Address [address] [place] [address] 7 [place] [address] Care Team Providers Care Service Rig Operator Name Role Phone Nedra Pulido MD Primary Care Pro vider Reason for Visit * Reason Comments Med Change Request Encounter Details Date Type Department Care Team ([facility] Contact Info) Description 06/25/2025 Refill [facility] MEDICINE [address] [place], [place] [phone] Nedra Pulido MD [address] [place] [address] Social History Tobacco Use Types Packs/Day Years [...] Description 06/28/2025 9:00 AM EDT Office Visit [facility] MEDICINE [address] [place] [address] Abi Baldwin MD [address] [place] [phone] 07/19/2025 10:00 AM EDT Medication Management [facility] [address] [place] [address] Jennifer Drew, PharmD [address] [place] [phone] 09/20/2025 9:00 AM EST Office Visit [facility] MEDICINE [address] [place] [address] Nedra Pulido MD [address] [place] [address] 11/15/2025 9:30 AM EST Office Visit [facility] OPTOMETRY [address] [place] [address] Vanda Colon, OD [address] [place] [address] documented as of this encounter Visit Diagnoses Not on filedocumented in this encounter Additional Health Concerns Assessment Noted Time PHQ-9 Depression Total Score: 0 06/05/20 24 11:24 AM EDT documented as of this encounter Care Teams Service Rig Operator Relationship Specialty Start Date End Date Nedra Pulido MD [address] [place] [phone] PCP - General Internal Medicine 03/23/23 documented as of this encounter
--- OUTSIDE RECORDS SUMMARY | 2025-06-27 09:42 | XMS_ITS | Encounter Summary ---
Author Organization [employer] Address [address] [place] [address] 7 [place] [address] Care Team Providers Care Merchandiser Retail Representative Name Role Phone Nedra Pulido MD Primary Care Pro vider Reason for Visit * Reason Onset Date Comments Med Refill 08/14/2024 Encounter Details Date Type Department Care Team ([facility] st Contact Info) Description 08/14/[address] [facility] MEDICINE [address] [place] [address] Nedra Pulido MD [address] [place] [address] Med Refill Social History Tobacco Use Types Packs/Day Years [...] AM EDT documented as of this encounter Miscellaneous Notes * Telephone Encounter - Yazmin Waters RN - 08/15/2024 10:43 AM EDT Looks like pt last saw rheumatology 08/08/24. From OV note, it looks like plan was to lower dose from 4mg to 2mg but it is unclear whether they sent her a refill anywhere. Telephone call placed to pharmacy. Spoke with Ed who reports rheumatology last sent methylprednisolone 06/04/24. Since then, it has just been PCP sending. Telephone call placed to [facility] Rheumatology to discuss POC in regards to pt's steroids. Spoke with HELEN Thornton. Explained that pt self increased dose to 4mg and then ran out at which time PCP agreed tofill until pt saw Rheumatology 08/08 and could discuss it with them. Per OV note, rheumatology was decreasing dose back to 2mg and then instructions after that are unclear. Inquired if script for methylprednisolone 2mg was sent to pharmacy. Hillary reports that the script sent 06/04 was for 2mg and has refills and is at [facility] pharmacy. She states will call pharmacy and see if they can fill the 2mg and if anything is needed in terms of override or anything, they will coordinate. Hillary states they will handle Rx. Please can you check w pt and daughter -she is following w roller mill tender at [facility] who is prescribing med Last time I refilled med because pt stopped steroids suddenly after run out whe pt increased by herself med dose and gave med for 17 days until she can f up w specialist to f on plan on steroids Can you check w pt and or roller mill tender office ? , if there is urgent need I can refill med for another 7 days but they need to get med from specialist ,they will need to taper eventually Please let me know the discussion * Telephone Encounter - Janet Leija LPN - 08/14/2024 1:18 PM EDT Please review request below.Medication is not pended * Telephone Encounter - Nathaly Mcqueen - 08/14/2024 12:51 PM EDT TC from pt requesting medication refill. Medications needing refill : methylPREDNISolone (Medrol) 4 MG tablet To be sent to: [facility] - [place], [place] - [address] [place] [address] documented in this encounter Plan of Treatment Upcoming Encounters Date Type Department Care Team (Late st Contact Info) Description 06/28/2025 9:00 AM EDT Office Visit [facility] MEDICINE [address] [place] [phone] Abi Baldwin MD [address] [place] [address] 07/19/2025 10:00 AM EDT Medication Management [address] [address] Jennifer Drew, MaryD [address] [place] [address] 09/20/2025 9:00 AM EST Office Visit [address] [address] Nedra Pulido MD [address] [place], [place] [phone] 11/15/2025 9:30 AM EST Office Visit [facility] OPTOMETRY [address] [place], [place] [phone] Isaiah, Vanda, OD [address] [place] [address] documented as of this encounter Visit Diagnoses Not on filedocumented in this encounter Additional Health Concerns Assessment Noted Time PHQ-9 Depression Total Score: 0 06/05/20 24 11:24 AM EDT documented as of this encounter Care Teams Merchandiser Retail Representative Relationship Specialty Start Date End Date Nedra Pulido MD [address] [place], [place] [phone] PCP - General Internal Medicine 03/23/23 documented as of this encounter
--- OUTSIDE RECORDS SUMMARY | 2025-06-27 09:42 | XMS_ITS | Encounter Summary ---
Author Organization [facility] Address [address] [place] [address] Support Name Relationship Address Phone Ntaacha Eisenberg Daughter [address] [facility] [address] [place] [address] Care Team Providers Care Clinical Law Professor Name Role Phone Nedra Pulido Primary Care Provider [phone] Reason for Visit * Reason Comments Med Refill Encounter Details Date Type Department Care Team (Late st Contact Info) Description 06/25/2025 Refill [facility] Rhe[facility]ology Clinic [address] [place] [phone] Book Trimmer: Fior Robertson, Iftikhar Beasley MD [address] [place] [phone] Polyarthralgia Social History Tobacco Use Types Packs/Day Years [...] encounter Miscellaneous Notes * Telephone Encounter - Iftikhar Robertson MD - 06/26/2025 11:28 AM EDT Thanks García Jj refilled * Telephone Encounter - García Murry LPN - 06/26/2025 9:44 AM EDT Reached out to the pt via a Amharic speaking interpreter and translator # [id number] . I spoke to both the pt and her daughter and her daughter will bring her to have labs drawn tomorrow morning. Orders faxed to [facility] * Telephone Encounter - García Murry LPN - 06/25/2025 10:56 AM EDT Future Appointments Date Time Provider Department Center 09/10/2025 11:00 AM [facility] UROLOGY CYSTOSCOPY [facility] Urology [facility] 09/17/2025 10:20 AM Iftikhar Robertson MD [facility] 03/13/2026 10:40 AM Anca Woodward DPM [facility] Podiatry [facility] LVM will instruct the pt to have labs drawn when she returns my call documented in this encounter Plan of Treatment Upcoming Encounters Date Type Department Care Team (Late st Contact Info) Description 09/10/2025 11:00 AM EST Office Visit [facility] Urology Clinic [address] [place] [address] Book Trimmer: Alyssa Restrepo 09/17/2025 10:20 AM EST Office Visit [facility] Rheumatology Clinic [address] [place] [address] Book Trimmer: Iftikhar Haro MD [address] [place] [phone] 03/13/2026 10:40 AM EDT Follow-Up [facility] Podiatry [address] [place] [phone] Book Trimmer: Anca Morelos DPM [address] [place] [phone] Scheduled Orders Name Type Priority Associated Diagnoses Orde r Schedule CBC Auto Differential Lab Routine Polyarthralgia Expected: 06/26/2025, Expires: 12/23/2025 ALT Lab Routine Polyarthralgia Expected: 06/26/2025, Expires: 12/23/2025 AST Lab Routine Polyarthralgia Expected: 06/26/2025, Expires: 12/23/2025 Creatinine Lab Routine Polyarthralgia Expected: 06/26/2025, Expires: 12/23/2025 Sedimentation Rate Lab Routine Polyarthralgia Expected: 06/26/2025, Expires: 06/26/2026 C-Reactive Protein Lab Routine Polyarthralgia Expected: 06/26/2025, Expires: 06/26/2026 documented as of this encounter Visit Diagnoses Diagnosis Polyarthralgia Pain in joint, multiple sites documented in this encounter Care Teams Clinical Law Professor Relationship Specialty Start Date End Date Nedra Pulido PCP - General 01/04/24 documented as of this encounter
--- OUTSIDE RECORDS SUMMARY | 2025-06-27 09:42 | XMS_ITS | Encounter Summary ---
Author Organization [employer] Address [address] [facility] 7 [place] [address] Care Team Providers Care Director Of Product Design Name Role Phone Nedra Pulido MD Primary Care Pro vider Reason for Visit * Reason Comments Med Refill Encounter Details Date Type Department Care Team ([facility] st Contact Info) Description 12/16/2023 Refill [facility] MEDICINE [address] [place], [place] [phone] Nedra Pulido MD [address] [place] [address] Social History Tobacco Use Types Packs/Day Years Used Date Smoking Tobacco: Former Cigarettes Passive Smoke Exposure: Never Smokeless Tobacco: Current Comments:Smoked x 1 year at her 20 y of age 10 cigarettes and stopped Alcohol Use Standard Drinks/Week Comments Never 0 (1 standard drink = 0.6 oz pur e alcohol) Depression Answer Date Recorded Patient Health Questionnaire-9 Score 5 04/29/2023 Housing Stability Answer Date Recorded What is [...] Date Recorded Patient Health Questionnaire-2 Score 0 04/29/2023 Comments Unknown Sex and Gender Information Value [...] Description 06/28/2025 9:00 AM EDT Office Visit [facility] MEDICINE [address] [place] [phone] Abi Baldwin MD [address] [place] [phone] 07/19/2025 10:00 AM EDT Medication Management [facility] MEDICINE [address] [place] [phone] Jennifer Drew, PharmD [address] [place] [phone] 09/20/2025 9:00 AM EST Office Visit [address] [phone] Nedra Pulido MD [address] [place] [address] 11/15/2025 9:30 AM EST Office Visit [facility] OPTOMETRY [address] [place] [phone] Vanda Colon, OD [address] [place] [address] documented as of this encounter Visit Diagnoses Not on filedocumented in this encounter Additional Health Concerns Assessment Noted Time PHQ-9 Depression Total Score: 5 04/29/20 23 9:17 AM EDT documented as of this encounter Care Teams Director Of Product Design Relationship Specialty Start Date End Date Nedra Pulido MD [address] [place] [phone] PCP - General Internal Medicine 03/23/23 documented as of this encounter
--- OUTSIDE RECORDS SUMMARY | 2025-06-27 09:42 | XMS_ITS | Encounter Summary ---
Author Organization [employer] Address [address] [facility] [address] [place] [address] Care Team Providers Care [employer] Name Role Phone Nedra Pulido MD Primary Care Pro vider Encounter Details Date Type Department Care Team (Latest Contact Info) Description 06/25/2025 Travel Social History Tobacco Use Types Packs/Day Years [...] Description 06/28/2025 9:00 AM EDT Office Visit [facility] [address] [place] [phone] Abi Baldwin MD [address] [place] [phone] 07/19/2025 10:00 AM EDT Medication Management [facility] [address] [place] [phone] Jennifer Drew, PharmD [address] [place] [phone] 09/20/2025 9:00 AM EST Office Visit [facility] [address] [place] [phone] Nedra Pulido MD [address] [place] [address] 11/15/2025 9:30 AM EST Office Visit [facility] OPTOMETRY [address] [place] [phone] Vanda Colon, OD [address] [place] [address] documented as of this encounter Visit Diagnoses Not on filedocumented in this encounter Additional Health Concerns Assessment Noted Time PHQ-9 Depression Total Score: 0 06/05/20 24 11:24 AM EDT documented as of this encounter Care Teams [employer] Relationship Specialty Start Date End Date Nedra Pulido MD [address] [place] [phone] PCP - General Internal Medicine 03/23/23 documented as of this encounter
--- OUTSIDE RECORDS SUMMARY | 2025-06-27 09:42 | XMS_ITS | Clinical Summary ---
Author Organization [employer] Address [address] [place] [address] Care Team Providers Care Hand Laminator Name Role Phone Nedra Pulido MD Primary Care Pro vider Allergies No known active allergies Medications TRUEplus Lancets 33G miscIndications:T ype 2 diabetes mellitus without complication, unspecified whether correction insulin use (CMS/[facility]) USE DIRECTED TO TEST BLOOD SUGAR TWICE DAILY 100 each 5 03/02/20 24 Active Alcohol Swabs (Alcohol Prep) 70 % pads USE TWICE DAILY 100 each 11 03/02/20 24 Active glucose blood (FREESTYLE LITE) test stripIndications: Type 2 diabetes mellitus without complication, unspecified whether terminal operations supervisor insulin use (CMS/HCC) USE DIRECTED TO TEST BLOOD SUGAR TWICE DAILY 100 strip 3 07/18/20 24 Active methylPREDNISolon e (Medrol) 4 MG tablet Take 1 tablet (4 mg) by mouth Once per day. 17 tablet 07/24/20 24 Active lidocaine (Lidoderm) 5 % patchIndications: Other back pain, unspecified chronicity APPLY 1 PATCH TOPICALLY TO SKIN, LEAVE ON FOR 12 HOURS AND OFF FOR 12 HOURS DIRECTED 30 patch 2 10/29/20 24 Active SITagliptin (Januvia) 100 MG tablet Take 1 tablet (100 mg) by mouth Once per day. 90 tablet 02/06/20 25 Active Blood Glucose Monitoring Suppl (FreeStyle [place] Lite) w/Device kitIndications:Ty pe 2 diabetes mellitus without complication, unspecified whether terminal operations supervisor insulin use (CMS/[facility]) Inject 1 Device under the skin Once per day. 1 kit 02/06/20 25 Active losartan (Cozaar) 25 MG tablet TAKE 1 TABLET BY MOUTH EVERY DAY IN THE MORNING 90 tablet 1 02/21/20 25 Active ciclopirox (Penlac) 8 % solution APPLY TOPICALLY TO THE AFFECTED AREA(S) EVERY DAY AT BEDTIME 06/06/20 25 Active atorvastatin (Lipitor) 20 MG tabletIndications :Mixed hyperlipidemia Take 1 tablet (20 mg) by mouth at bedtime. 90 tablet 06/25/20 25 2025 Active Calcium Carb-Cholecalcife rol (Calcium 600/Vitamin D3) 600-20 MG-MCG tabletIndications :Osteoporosis without current pathological fracture, unspecified osteoporosis type Take 1 tablet by mouth 2 times daily. 180 tablet 1 06/25/20 25 Active Vitamins-Lipotrop ics (B Complex Formula 1, Lipotrop,) tablet Take 1 tablet by mouth Once per day. 90 tablet 1 06/25/20 25 Active DULoxetine (Cymbalta) [address] capsuleIndication s:Other chronic pain TAKE 1 CAPSULE BY MOUTH EVERY MORNING DO NOT BREAK, CRUSH, DISSOLVE OR CHEW 90 capsule 1 06/25/20 25 Active DULoxetine (Cymbalta) [address] capsule Take 1 capsule (30 mg) by mouth Once per day. Do not crush or chew. 7 capsule 06/25/20 25 2025 Active leflunomide (Arava) 20 MG tablet Take 20 mg by mouth Once per day. Take with food. 03/01/20 25 Active metFORMIN XR (Glucophage-XR) 500 MG 24 hr tablet Take 1 tablet (500 mg) by mouth with evening meal. Do not crush, chew, or split. 90 tablet 1 06/25/20 25 2025 Active Acetaminophen Extra Strength 500 MG tablet TAKE 1 TABLET BY MOUTH EVERY 6 HOURS NEEDED FOR MILD PAIN 60 tablet 2 06/25/20 25 Active estradiol (Estrace) 0.1 MG/GM vaginal cream apply 1 GRAM in vulva TWICE A WEEK DIRECTED 42 g 06/25/20 25 Active atorvastatin (Lipitor) 20 MG tabletIndications :Mixed hyperlipidemia Take 1 tablet (20 mg) by mouth at bedtime. 90 tablet 1 03/02/20 24 2024 Discontinued(R eorder (will not trigger notification to Pharmacy)) DULoxetine (Cymbalta) [address] capsuleIndication s:Other chronic pain TAKE 1 CAPSULE BY MOUTH EVERY MORNING DO NOT BREAK, CRUSH, DISSOLVE OR CHEW 90 capsule 1 03/02/20 24 2024 Discontinued(O ther) acetaminophen (Tylenol) 500 MG tablet Take 1 tablet (500 mg) by mouth every 6 (six) hours if needed for mild pain. 60 tablet 2 02/06/202024 Discontinued Vitamins-Lipotrop ics (B Complex Formula 1, Lipotrop,) tablet Take 1 tablet by mouth Once per day. 90 tablet 1 02/06/202024 Discontinued(R eorder (will not trigger notification to Pharmacy)) metFORMIN (Glucophage) 1000 MG tabletIndications :Type 2 diabetes mellitus without complication, unspecified whether correction insulin use (CMS/HCC) TAKE 1 TABLET BY MOUTH TWICE DAILY WITH BREAKFAST AND WITH DINNER 180 tablet 1 02/21/202024 Discontinued(O ther) Calcium 600/Vitamin D3 600-20 MG-MCG tabletIndications :Osteoporosis without current pathological fracture, unspecified osteoporosis type TAKE 1 TABLET BY MOUTH TWICE DAILY 180 tablet 1 05/23/202024 Discontinued(R eorder (will not trigger notification to Pharmacy)) estradiol (Estrace) 0.1 MG/GM vaginal cream To use twice a week 42.5 g 06/25/202024 Discontinued Active Problems Problem Noted Date Diagnosed Date Vulvar pruritus 06/25/2025 Atrophic vulvitis 06/25/2025 Renal cyst 02/06/2025 Epidermal cyst 02/06/2025 Osteoporosis without current pathological fractu re 11/13/2024 Overview (11/13/2024): Referral to endocrinology with T-score -3.1 L1-L4 and T-score -2.5 at femoral neck. Onychomycosis 05/23/2023 Assessment & Plan (05/23/2023 9:35 PM EDT): Pt w likely foot onychomycosis LFTs wnl at baseline in 04/2023 -Start Terbinafine 250 mg daily for 8 wk - explained possible SE. - Return to clinic in 6 wk for chem to monitor LFTs (ordered today). - If LFT normal at next visit will order Terbinafine for an extra mo to complete 12 wk of treatment. Arthritis 04/29/2023 Assessment & Plan (05/23/2023 9:26 PM EDT): Pt w worsening ,deforming arthritis of mx joints -worse in hands and knees -from previous missile technician' note seen 12/2021: -aspiration of L knee 01/04/22----> turbid,WBC 500 -Bilateral shoulders 12/2021: No acute fracture or dislocation. Glenohumeral alignment maintained. Mild acromioclavicular osteoarthritis. Soft tissues unremarkable. Sclerotic density projecting in the left glenoid, likely related to bone island. -Bilateral [...] ESR and CRP wnl, uric acid nl, -advised to take tylenol px 650 mg Q 8 x mild pain,meloxicam 7.5 x mod pain and to take 2 tab of meloxicam If severe pain -referred to missile technician - gave info today to call [facility] rheumatology. Assessment & Plan (04/29/2023 9:07 PM EDT): Pt w worsening ,deforming arthritis of mx joints -worse in hands and knees -from previous missile technician' note seen 12/2021: -aspiration of L knee 01/04/22----> turbid,WBC 500 -Bilateral shoulders 12/2021: No acute fracture or dislocation. Glenohumeral alignment maintained. Mild acromioclavicular osteoarthritis. Soft tissues unremarkable. Sclerotic density projecting in the left glenoid, likely related to bone island. -Bilateral hands 12/2022: Mild to moderate first carpometacarpal and interphalangeal joints osteoarthritis. No osseous erosions. No acute fracture or dislocation. Soft tissues unremarkable. -Bilateral knee XR 12/2021: Mild osteopenia. Slight narrowing of the medial joint spaces with marginal spurring. No joint effusions. No acute fracture or dislocation. Soft tissues unremarkable. -will repeat autoimmune workup -referred today to start with left forearm XR to eval hard nodularities palpated that are likely rheumatoid nodules -advised to take tylenol px 650 mg Q 8 x mild pain,meloxicam 7.5 x mod pain and to take 2 tab of meloxicam If severe pain -referred today to missile technician Health care maintenance 04/29/2023 Assessment & Plan (05/23/2023 9:36 PM EDT): -Quantiferon 04/2023 neg. -pap smear:05/31/2022: neg/HPV neg-to repeat in 5 years -MM:never-referred already. Appt for 05/2023 -colonoscopy: never ,referred to GI, gave info for [facility] GI today. -vaccines:s/p hep B x1,covid x2-Bivalent x1, TD 2021,p20 04/2023 , prescribed today shingrix vaccine to pharmacy, Hep B - not immune, refused vaccination. --- -microalbuminuria and GC / Chl urine screen ordered at last visit, but not done; reordered today. Assessment & Plan (04/29/2023 9:18 PM EDT): -pap smear:05/31/2022: neg/HPV neg-to repeat in 5 years -MM:never-referred today -colonoscopy:never ,referred today -vaccines:s/p hep B x1,covid x2-Bivalent dose today ,TD 2021,p20 today , will offer shingrix vaccine at next visit -labs x annual exam today in fasting -pt agreed to have STI testing including HIV to have for baseline Constipation 04/29/2023 Assessment & Plan (05/23/2023 9:23 PM EDT): Chronic constipation Benign abd exam -improve diet -trial w metamucil daily and colace prn -referred to GI --- gave info to pt today to call [facility] GI Assessment & Plan (04/29/2023 9:16 PM EDT): Chronic constipation Benign abd exam -improve diet -trial w metamucil daily and colace prn -referred today to GI -check TSH Cardiomegaly 04/28/2023 Assessment & Plan (05/23/2023 9:20 PM EDT): From chart record there is mention of cardiomegaly -pt recalls was told to f up w cardiology but never established care. Noted trace pitting bl edema -referred x TTE - appt for 05/27/2023 -will refer to men's designer at next visit w result Assessment & Plan (04/29/2023 8:56 PM EDT): From chart record there is mention of cardiomegaly -pt recalls was told to f up w cardiology but never established care. Noted trace pitting bl edema -referred x TTE -will refer to men's designer at next visit w result Essential hypertension 04/28/2023 Assessment & Plan (05/23/2023 9:22 PM EDT): Brings home BP readings brought by daughter today - all around 137/87, none above 140/90. EKG 04/2023 - NSR,QTC 440,no ischemic findings, HR 70x' -continuet losartan 25 mg daily started 4 wk ago, denies side effects. -to bring home BP readings of 3 times a week -pt has machine at home and advised to bring machine to compare readings w those at clinic -will check chem in 6 wk, ordered today. -ophthalmology seen 03/2023 to f in 1 y -microalb ordered -will need to repeat chem at next apt in 4 weeks after started on losartan Assessment & Plan (04/29/2023 9:17 PM EDT): There is hx of HTN per record -pt denies to be px before antihypertensives -here BP is 180s/100 Denies PRATER,blurry vision,CP nor SOB so probably chronic elevated EKG today NSR,QTC 440,no ischemic findings, HR 70x' -will start losartan 25 mg daily -to bring home BP readings of 3 times a week -pt has machine at home -ophthalmology seen 03/2023 to f in 1 y -microalb ordered -will need to repeat chem at next apt in 4 weeks after started on losartan Hyperlipidemia 04/28/2023 Type 2 diabetes mellitus wit h other specified complication, unspecified whether terminal operations supervisor insulin use 04/28/2023 Assessment & Plan (05/23/2023 9:27 PM EDT): -pt on metformin 500 mg BID-denies taking 2 tab BID - 04/2023: hb1AC is 6.1, LDL 72 -continue metformin 500 mg BID -DM labs in 6 mo -ophthalmology 03/2023 To f in 1 y -will refer to flavoring oil filterer at future visit Assessment & Plan (04/29/2023 9:09 PM EDT): -pt on metformin 500 mg BID-denies taking 2 tab BID -today hb1AC is 6 ,cbg 115 -continue metformin 500 mg BID -DM labs -ophthalmology 03/2023 To f in 1 y -will refer to flavoring oil filterer at future visit Polyarthralgia 01/02/2022 12/01/2023 Overview (12/01/2023): Last Assessment & Plan: Here for joint pains. Report of historic [...] 20mg daily -continue methylprednisolone at 4mg daily Resolved Problems Problem Noted Date Diagnosed Date Resolved Date Dysuria 06/05/2024 07/24/2024 Lower extremity edema 03/02/20242024 Diabetes due to undrl condit ion w oth diabetic neuro comp 04/29/2023 04/29/2023 Adjustment disorder 04/29/2023 06/05/20 Assessment & Plan (05/23/2023 9:27 PM EDT): PHQ9: 5 Pt denies depression but reports guilty feelings and insomnia associated mainly w pain per pt -offered pt BH referral but refusing ,symptoms associated with her disease -pt on cymbalta x pain per pt Assessment & Plan (04/29/2023 9:23 PM EDT): PHQ9: 5 Pt denies depression but reports guilty feelings and insomnia associated mainly w pain per pt -offered pt BH referral but refusing ,symptoms associated with her disease -pt on cymbalta x pain per pt Osteoarthritis of acromioclavicular joint 04/11/2022 04/29/2023 Hand joint pain 02/08/2022 04/29/2023 Encounters Date Type Department Care Team Description 06/25/2025 9:15 AM EDT Office Visit [facility] [address] [place] [phone] Nedra Pulido MD Bladder wall thickening (Primary Dx); Type 2 diabetes mellitus without complication, unspecified whether terminal operations supervisor insulin use (CMS/[facility]); Arthritis; Polyarthralgia; Abnormal echocardiogram; Other back pain, unspecified chronicity; Mixed hyperlipidemia; Osteoporosis without current pathological fracture, unspecified osteoporosis type; Type 2 diabetes mellitus with other specified complication, unspecified whether terminal operations supervisor insulin use (CMS/[facility]); Other chronic pain; Annual physical exam; Essential hypertension; Health care maintenance; Vulvar pruritus; Atrophic vulvitis 06/25/2025 Refill [facility] [address] [place] [address] Nedra Pulido MD 06/25/2025 Refill [facility] [address] [place] [address] Nedra Pulido MD Type 2 diabetes mellitus without complication, unspecified whether terminal operations supervisor insulin use (CMS/HCC) 06/25/2025 Travel 06/18/2025 Patient Outreach [facility] [address] [place] [address] Nedra Pulido MD Pre-visit Planning ([facility] screening completed on 01/25/25 ) 05/23/2025 Refill [facility] [address] [place] [address] [phone] Yanelis Falcon ANP Osteoporosis without current pathological fracture, unspecified osteoporosis type from Last 3 Months Immunizations Immunization Administration Dates Next Due Hep B, Unspecified 12/30/2021 Hep B, adult 12/30/2021 Influenza injectable quadrivalent preservative f ree 09/07/2021,12/11/2020 Pfizer Covid-19 Vaccine 12+ 11/30/2023 Pfizer Covid-19 Vaccine 12+ Bivalent 04/29/2023 Pneumococcal Conjugate PCV 20 04/29/2023 RSV Bivalent 12/01/2023 TD (adult), 2 Lf tetanus tox oid, preservative free, adsorbed 12/30/2021 Zoster, Recombinant 12/01/2023,05/23/2023 Family History Medical History Relation Name Comments Stroke Father Arthritis Father's Brother Breast cancer Sister Relation Name Status Comments Father Father's Brother Sister Social History Tobacco Use Types Packs/Day Years [...] Orientation Straight 08/30/2022 10 :39 AM EDT Last Filed Vital Signs Vital Sign Reading Time Taken Comments Blood Pressure 120/80 06/25/2025 9:21 AM EDT Pulse 84 06/25/2025 9:21 AM EDT Temperature 37 C (98.6 F) 06/25/2025 9:21 AM EDT Respiratory Rate 18 06/25/2025 9:21 AM EDT Oxygen Saturation 97% 02/05/2025 9:11 AM EDT Inhaled Oxygen Concentration - - Weight 52.7 kg (116 lb 3.2 oz) 06/25/2025 9:21 A M EDT Height 149.9 cm (4' 11 ) 06/25/2025 9:21 AM EDT Body Mass Index 23.47 06/25/2025 9:21 AM EDT Plan of Treatment Upcoming Encounters Date Type Department Care Team (Late st Contact Info) Description 06/28/2025 9:00 AM EDT Office Visit [facility] [address] [place] [phone] Abi Baldwin MD [address] [place] [phone] 07/19/2025 10:00 AM EDT Medication Management [facility] [address] [place] [phone] Jennifer Drew, PharmD [address] [place] [phone] 09/20/2025 9:00 AM EST Office Visit [facility] [address] [place] [address] Nedra Pulido MD [address] [place] [address] 11/15/2025 9:30 AM EST Office Visit [facility] [address] [place] [address] Isaiah, Vanda, OD [address] [place] [address] Health Maintenance Due Date Last Done Comments CT Colonography 1960 FIT DNA/Cologuard 1960 FIT 1960 FOBT 1960 Sigmoidoscopy 1960 DTaP/Tdap/Td Vaccines (1 - Tdap) 12/31/2021 12/30/2021 Hepatitis B Vaccines (2 of 3 - 19+ 3-dose series) 01/27/2022 12/30/2021, 12/30/2021 COVID-19 Vaccine ( season) 2024 11/30/2023, 04/29/2023, 07/30/2021, Additional history exists Eye Exam 04/22/2025 04/22/2023, 04/01, 04/22/2023, Additional history exists Depression Screening 06/05/2025 06/05/2024, 06/05/20 24 Influenza Vaccine (#1) 2025 09/07/2021, 2020 Diabetes: Urine Protein Screening 07/20/2025 07/20/2024, 02/23/2024, 09/08/2021 Lipid Panel 07/20/2025 07/20/2024, 01/30, 04/29/2023, Additional history exists Diabetes: Hemoglobin A1C 12/26/2025 025, 02/05/2025, 07/20/2024, Additional history exists SDOH Screening 01/25/2026 01/25/2025 Alcohol/Substance Use Screening 02/05/2026 02/05/2025 Diabetes: Foot Exam 03/13/2026 03/13/2025 Mammogram 06/07/2026 06/07/2024, 06/02/2023 Tobacco Screening 06/25/2026 06/25/2025 Cervical Cancer Screening 05/31/2027 HPV/Cotest 05/31/2027 05/31/2022 Pap Smear 05/31/2027 05/31/2022 Colonoscopy 11/16/2030 11/16/2023 Colorectal Cancer Screening 11/16/2030 Hepatitis C Screening Completed 04/29/2023, 021 Pneumococcal Vaccine: 50+ Years Completed 04/29/2023 RSV Patients and Patients Aged 60 years or older Completed 12/01/2023 Zoster Vaccines Completed 12/01/2023, 05/23/2023 HIB Vaccines Aged Out No longer eligi ble based on patient's age to complete this topic HPV Vaccines Aged Out No longer eligi ble based on patient's age to complete this topic Hepatitis A Vaccines Aged Out No long er eligible based on patient's age to complete this topic IPV Vaccines Aged Out No longer eligi ble based on patient's age to complete this topic Meningococcal B Vaccine Aged Out No l onger eligible based on patient's age to complete this topic Meningococcal Vaccine Aged Out No brigida albaro eligible based on patient's age to complete this topic RSV under 20 months Aged Out No longe r eligible based on patient's age to complete this topic Rotavirus Vaccines Aged Out No longer eligible based on patient's age to complete this topic Procedures Procedure Name Priority Date/Time Associated Diagnosis Comments POCT GLUCOSE Routine 06/25/2025 9:33 AM EDT Type 2 diabetes mellitus without complication, unspecified whether correction insulin use (CMS/HCC) POCT GLYCATED HEMOGLOBIN, TOTAL Routine 06/25/2025 9:33 AM EDT Type 2 diabetes mellitus without complication, unspecified whether correction insulin use (CMS/HCC) AMB REFERRAL TO PODIATRY Routine 03/13/2025 Type 2 diabetes mellitus without complication, unspecified whether terminal operations supervisor insulin use (CMS/HCC) ALBUMIN, RANDOM URINE W/CREATININE Routine 07/20/2024 10:25 AM EDT Annual physical exam LIPID PANEL, STANDARD Routine 07/20/2024 10:20 AM EDT Annual physical exam BI MAMMOGRAM SCREENING TOMOSYNTHESIS BILATERAL Routine 06/07/2024 11:30 AM EDT HM COLONOSCOPY Routine 11/16/2023 5:57 PM EST HEPATITIS C AB W/REFL TO HCV RNA, QN, PCR Routine 04/29/2023 10:47 AM EDT Health care maintenance THINPREP IMAGING PAP AND HPV MRNA E6/E7 WITH REFLEX TO HPV 16,18/45 Routine 05/31/2022 12:00 AM EDT from Last 3 Months or Most Recently Relevant to Health Maintenance Results * (ABNORMAL) POCT HGB A1C (06/25/2025 9:33 AM EDT) Hemoglobin A1C 5.8(A) 4.0 - 5.7 % Blood 06/25/2025 9:33 AM EDT Nedra Carrillo MD POINT OF CARE RICHARD T ENTER/EDIT ORDERABLES Final Result * POCT Glucose (06/25/2025 9:33 AM EDT) Glucose Blood, POC 62 60 - 200 mg/dL Blood Capillary blood specimen / Unknown 06/25/2025 9:33 AM EDT Nedra Carrillo MD POINT OF CARE RICHARD T ENTER/EDIT ORDERABLES Final Result * Referral to Podiatry (03/13/2025) Nedra Carrillo MD OUTPATIENT REFERR AL ORDERABLES Final Result * Albumin, Random Urine W/Creatinine (07/20/2024 10:25 AM EDT) Creatinine, Urine 191.12 mg/dL [facility] Microalbumin Urine 20.0 mg/L [facility] Microalbum Creatinine Ratio Ur 10.4 <30 ug/mg cr [facility] Comment:Albumin/Creatinine R atio Reference Ranges: Normal: < 30 ug/mg creatinine Microalbuminuria: 30 - 300 ug/mg creatinineClinical Albuminuria: > 300 ug/mg creatinine Urine (Urine, Random) 07/20/2024 10:25 AM EDT 07/20/2024 11:42 AM EDT Nedra Carrillo MD LAB URINE ORDERAB LES Final Result [facility] [address] [place] [phone] * Lipid Panel, Standard (07/20/2024 10:20 AM EDT) Triglycerides 85 <150 mg/dL [facility] Comment:Desirable Triglyceri de: less than 150 mg/dLBorderline High Triglyceride 150-199 mg/dLHigh Triglyceride: 200-499 mg/dLVery High Triglyceride: greater than or equal to 5OO mg/dL Cholesterol 144 <200 mg/dL [facility] Comment:Desirable Cholestero l: less than 200 mg/dLBorderline High Cholesterol: 200-239 mg/dLHigh Cholesterol: greater than 239 mg/dL LDL Cholesterol Calculated 82 <100 mg/dL [facility] Comment:Desirable LDL: less than 100 mg/dLNear Optimal/Above Optimal LDL: 110- 129 mg/dLBorderline High LDL: 130-159 mg/dLHigh LDL: 160-189 mg/dLVery High LDL: greater than or equal to 190 mg/dL HDL Cholesterol 45 >40 mg/dL [facility] Comment:Desirable HDL: great er than 40 mg/dL Note: This HDL assay may give artificially low results in patients with liver disease. Blood Venous blood specimen / Unknown 07/20/2024 10:20 AM EDT 07/20/2024 11:23 AM EDT us Nedra Carrillo MD LAB BLOOD ORDERAB LES Final Result [facility] [address] [place] [address] [phone] * BI Mammogram Screening Tomosynthesis Bilateral (06/07/2024 11:30 AM EDT) Anatomical Region Laterality Modality Breast Bilateral Mammography 06/07/2024 11:3 0 AM EDT Narrative 07/05/2024 8:56 AM EDT [address] [place] [address] Mammography Report Signed Patient: Adina Eisenberg MR#: [id number] 7 : 1960 Acct:[id number] Age/Sex: 64 / F ADM Date: 06/07/24 Loc: HO.MAMMO Attending Dr: Nedra Carrillo MD Ordering Physician: Nedra Pulido MD Re sults: 1Negative Date of Service: 06/07/24 Follow Up: 1 Year From Orig inal Mammogram Procedure(s): MM tomosynthesis screening BI Accession Number(s): [id number] cc: Nedra Pulido MD EXAMINATION: MM SCREENING DIGITAL BREAST TOMOSYNTHESIS, BILATERAL CLINICAL INFORMATION: Screening. Asymptomatic. COMPARISON: Mammography: This study is compared with prior exams dating back to 2022. TECHNIQUE: Digital breast tomosynthesis is performed in both the craniocaudal and mediolateral oblique views along with computer-aided detection (CAD). Synthesized 2D images are generated from the tomosynthesis. FINDINGS: There are scattered areas of fibroglandular density (ACR BI-RADS breast composition Category b). There are no significant masses, abnormal calcifications, or other abnormalities. MM/MM tomosynthesis screening BI IMPRESSION: No mammographic evidence of malignancy. ASSESSMENT: BI-RADS BI-RADS 1 - Negative RECOMMENDATION: Routine annual mammography screening. 1 year F/U This examination should not preclude the clinical evaluation of a suspicious palpable abnormality. This patient's information was entered into a reminder system with a target due date for their next mammogram. Electronically signed by: Margo Sotelo MD 07/05/2024 08:53 AM EDT RP Dictated By: Margo Sotelo MD Signed By: <Electronically signed by Margo Sotelo MD in OV> 07/05/24 0853 DD/ 1130 TD/TT: 06/07/24 1200 Laundry Sorter: Procedure Note Donotuseinterpreter, Image - 07/05/2024 [facility] [address] [place], [place] [address] Mammography Report Signed Patient: Adina EisenbergMR#: [id number] 7 : 1960Acct:[id number] Age/Sex: 64 / FADM Date: 06/07/24 Loc: LIA Attending Dr: Nedra Carrillo MD Ordering Physician: Nedra Pulido sults: 1Negative Date of Service: 06/07/24Follow Up: 1 Year From Orig inal Mammogram Procedure(s): MM tomosynthesis screening BI Accession Number(s): [id number] cc: Nedra Pulido MD EXAMINATION: MM SCREENING DIGITAL BREAST TOMOSYNTHESIS, BILATERAL CLINICAL INFORMATION: Screening. Asymptomatic. COMPARISON: Mammography: This study is compared with prior exams dating back to 2022. TECHNIQUE: Digital breast tomosynthesis is performed in both the craniocaudal and mediolateral oblique views along with computer-aided detection (CAD). Synthesized 2D images are generated from the tomosynthesis. FINDINGS: There are scattered areas of fibroglandular density (ACR BI-RADS breast composition Category b). There are no significant masses, abnormal calcifications, or other abnormalities. MM/MM tomosynthesis screening BI IMPRESSION: No mammographic evidence of malignancy. ASSESSMENT: BI-RADS BI-RADS 1 - Negative RECOMMENDATION: Routine annual mammography screening. 1 year F/U This examination should not preclude the clinical evaluation of a suspicious palpable abnormality. This patient's information was entered into a reminder system with a target due date for their next mammogram. Electronically signed by: Margo Sotelo MD 07/05/2024 08:53 AM EDT Dictated By: Margo Sotelo MD Signed By: <Electronically signed by Margo Sotelo MD in OV> 07/05/24 0853 DD/ 1130 TD/TT: 06/07/24 1200 Laundry Sorter: us Nedra Carrillo MD IMG BI PROCEDURES Edited Result - Final * Hm Colonoscopy (11/16/2023 5:57 PM EST) us Historical Provider HEALTH MAINTENANCE Final Result * Hepatitis C Antibody with Reflex to HCV, RNA, Quantitative, Real-Time PCR (04/29/2023 10:47 AM EDT) Pathologist [facility] Hepatitis C Antibody NON-REACT YANY NON-REACT YANY [employer] [place] [employer] Comment: HCV antibody was non-reactive. There is no laboratory evidence of HCV infection. In most cases, no further action is required. However, if recent HCV exposure is suspected, a test for HCV RNA (test code 30496) is suggested. For additional information please refer to http://education.Xetawave/faq/JGD41a1 (This link is being provided for informational/ educational purposes only.) Blood Venous blood specimen / Unknown 04/29/2023 10:47 AM EDT 04/29/2023 10:48 AM EDT Narrative [facility] - 05/07/2023 10:28 PM EDT FASTING:UNKNOWN PATIENT UNABLE TO VOID; ADVISED TO RETURN FOR COLLECTION. FASTING: UNKNOWN us Nedra Carrillo MD LAB BLOOD ORDERAB LES Final Result [address], [place] [address] [employer] [place] [employer] [address] [place] [address] * THINPREP TIS PAP AND HPV mRNA E6/E7 WITH REFLEX TO HPV 16,18/45 (05/31/2022 12:00 AM EDT) Clinical Information: None given [facility] COMMENT SEE COMMENT [facility] Comment: EXPLANATORY NOTE: The Pap is a screening test for cervical cancer. It is not a diagnostic test and is subject to false negative and false positive results. It is most reliable when a satisfactory sample, regularly obtained, is submitted with relevant clinical findings and history, and when the Pap result is evaluated along with historic and current clinical information. COMMENT: This Pap test has been evaluated with computer assisted technology. [facility] Division Field Inspector: SEE COMMENT [facility] Comment: MXD, CT (ASCP) CT screening location: [place] [address] HPV nRNA E6/E7 Not Detected Not Detected [facility] Comment: Methodology: Receivables Specialist-Mediated Amplification This assay detects E6/E7 viral messenger RNA (mRNA) from 14 high-risk HPV types (16,18,31,33,35,39,45,51,52,56,58,59,66,68). Cervical sources are required for HPV testing. If a vaginal source from a patient who has had a total hysterectomy with removal of cervix was submitted, please contact the testing laboratory for alternative testing options. For additional information, please refer to http://education.Xetawave/faq/IIF953d7 (This link if provided for information/ educational purposes only.) Interpretation/Res ult: SEE COMMENT [facility] Comment: Negative for intraepithelial lesion or malignancy. Atrophic pattern; predominantly parabasal cells LMP: NONE [facility]IV[facility] Prev. BX: NONE [facility] Prev. PAP: NONE [facility]IVEN [facility] SOURCE: None given [facility] Statement Of Adequacy: SATISFACTORY FOR EVALUATION [facility] 05/31/2022 us Ruth Pinzon [facility] LAB PATHOLOGY ORDERABLES Final Result [facility] [address] from Last 3 Months or Most Recently Relevant to Health Maintenance Insurance * Guarantor: Adina Eisenberg Account Type Relation to Patient Date of Phone Billing Address Personal/Family Self [address] [place] [address] [facility] * Guarantor: Adina Eisenberg Account Type Relation to Patient Date of Phone Billing Address Personal/Family Self [address] [place] [address] * Guarantor: Adina Eisenberg Account Type Relation to Patient Date of Phone Billing Address Personal/Family Self [address] [place] [address] * Guarantor: Adina Eisenberg Account Type Relation to Patient Date of Phone Billing Address Personal/Family Self [address] [place] [address] Care Teams Hand Laminator Relationship Specialty Start Date End Date Nedra Pulido MD [address] [place] [address] PCP - General Internal Medicine 03/23/23
--- OUTSIDE RECORDS SUMMARY | 2025-06-27 09:42 | XMS_ITS | Encounter Summary ---
Author Organization [employer] Address [address] [place] [address] 7 [place] [address] Care Team Providers Care Breaker Table Worker Name Role Phone Nedra Pulido MD Primary Care Pro vider Reason for Visit * Reason Onset Date Comments Med Refill 11/14/2024 Encounter Details Date Type Department Care Team ([facility] st Contact Info) Description 11/14/2024 Telephone [facility] MEDICINE [address] [place] [address] Nedra Pulido MD [address] [place], [place] [phone] Med Refill Social History Tobacco Use Types [...] encounter Miscellaneous Notes * Telephone Encounter - Matt Chew - 11/14/2024 2:19 PM EST TC from pt requesting medication refill. Medications needing refill : methylPREDNISolone (Medrol) 4 MG tablet To be sent to: [facility] - [place], [place] - [address] [place] [address] documented in this encounter Plan of Treatment Upcoming Encounters Date Type Department Care Team ([facility] st Contact Info) Description 06/28/2025 9:00 AM EDT Office Visit [facility] MEDICINE [address] [place] [phone] Abi Baldwin MD [address] [place] [address] 07/19/2025 10:00 AM EDT Medication Management [address] [address] Jennifer Drew, MaryD [address] [place] [address] 09/20/2025 9:00 AM EST Office Visit [facility] MEDICINE [address] [place] [address] Nedra Pulido MD [address] [place] [address] 11/15/2025 9:30 AM EST Office Visit [facility] OPTOMETRY [address] [place], [place] [phone] Vanda Colon, OD [address] [place], [place] [phone] documented as of this encounter Visit Diagnoses Not on filedocumented in this encounter Additional Health Concerns Assessment Noted Time PHQ-9 Depression Total Score: 0 06/05/20 24 11:24 AM EDT documented as of this encounter Care Teams Breaker Table Worker Relationship Specialty Start Date End Date Nedra Pulido MD [address] [place], [place] [phone] PCP - General Internal Medicine 03/23/23 documented as of this encounter
--- OUTSIDE RECORDS SUMMARY | 2025-06-27 09:42 | XMS_ITS | Encounter Summary ---
Author Organization [employer] Address [address] [place] [address] 7 [place] [address] Care Team Providers Care Cabinetmaker Supervisor Name Role Phone Nedra Pulido MD Primary Care Pro vider Reason for Visit * Reason Comments Med Refill Encounter Details Date Type Department Care Team ([facility] st Contact Info) Description 06/25/2025 Refill [facility] MEDICINE [address] [place], [place] [phone] Nedra Pulido MD [address] [place] [address] Type 2 diabetes mellitus without complication, unspecified whether fci insulin use ([facility]) Social History Tobacco Use Types Packs/Day Years [...] 9:00 AM EDT Office Visit [facility] MEDICINE [address] [place] [address] Abi Baldwin MD [address] [place] [address] 07/19/2025 10:00 AM EDT Medication Management [facility] MEDICINE [address] [place] [phone] Jennifer Drew, PharmD [address] [place] [address] 09/20/2025 9:00 AM EST Office Visit [facility] MEDICINE [address] [place] [address] Nedra Pulido MD [address] [place] [address] 11/15/2025 9:30 AM EST Office Visit [facility] OPTOMETRY [address] [place] [address] Vanda Colon OD [address] [place] [address] documented as of this encounter Visit Diagnoses Diagnosis Type 2 diabetes mellitus without complication, unspecified whether roasterman insulin use ([facility]) documented in this encounter Additional Health Concerns Assessment Noted Time PHQ-9 Depression Total Score: 0 06/05/20 24 11:24 AM EDT documented as of this encounter Care Teams Cabinetmaker Supervisor Relationship Specialty Start Date End Date Nedra Pulido MD [address] [place] [address] PCP - General Internal Medicine 03/23/23 documented as of this encounter
[2025-06-27 11:45] LABS: Hematocrit 35.9 % (37.0-47.0); Hemoglobin 11.3 g/dl (12.0-16.0); Mean Corpuscular HGB Conc 31.5 g/dl (31.0-35.0); Mean Corpuscular Hemoglobin 28.7 pg (27.0-33.0); Mean Corpuscular Volume 91.1 fL (80.0-98.0); NRBC Abs Auto 0.000 X10*3/uL (0.0-0.012); NRBC Pct Auto 0.0 /100WBC (0.0-0.2); Platelet Count 205 X10*3/uL (160-400); Red Blood Count 3.94 X10*6/uL (4.20-5.50); White Blood Count 5.6 X10*3/uL (4.8-10.8)
[2025-06-27 12:08] LABS: Alanine Aminotransferase 36 U/L (0-31); Albumin Level 4.2 g/dL (3.5-5.0); Alkaline Phosphatase 77 U/L (39-117); Anion Gap 9 (12-20); Aspartate Amino Transferase 34 U/L (5-31); Blood Urea Nitrogen 24 mg/dL (9-16); Calcium 9.5 mg/dL (8.4-10.2); Carbon Dioxide 28 mmol/L (22-29); Chloride 109 mmol/L (96-108); Cholesterol 187 mg/dL (<200); Estimated Glomerular Filt Rate > 60; HDL Cholesterol 33 mg/dL (>40); Potassium 3.6 mmol/L (3.3-5.1); Sodium 142 mmol/L (135-145); Total Protein 6.8 g/dL (6.5-8.0); Triglycerides 185 mg/dL (<150)
[2025-06-27 12:29] LABS: Hemoglobin A1C 178.4028 umol/L; Total Hemoglobin (HGBA1C) 4863.7259 umol/L
[2025-06-27 12:50] LABS: Folate 9.2 ng/mL (> or = 4.0); Vitamin B12 380 pg/mL (200-900)
[2025-06-27 16:08] LABS: Iron 81 mcg/dL (30-160); Percent Iron Saturation 37 % (15-50); Total Iron Binding Capacity 217 mcg/dL (228-428); Unsaturated Iron Binding 136 ug/dL
[2025-06-27 16:09] LABS: Ferritin 100 ng/mL (10-250)
== END 2025-06-27 08:51 | disposition home or self-care (01) ==
LOC: HO.HHCL 08:50
PROVIDERS: PCP Student in an Organized Health Care Education/Training Program; Visit Provider Student in an Organized Health Care Education/Training Program
DX: Z00.00 Encounter for general adult medical examination without abnormal findings (principal)
CPT/HCPCS: 36415; 80053; 80061; 82306; 82607; 82728; 82746; 83036; 83540; 84443; 85027

== ENCOUNTER 2025-09-06 12:11 | Outpatient (REF) | payer MEDICAID, OTHER, SELFPAY ==
--- NOTE | ~2025-09-06 | XR_ITS ---
EXAMINATION: XR CHEST 2 VIEWS HISTORY: 65 y.o F with decreased breath sounds COMPARISON: There are no prior studies available for comparison. FINDINGS: PA and lateral views of the chest are submitted. The lungs are expanded and clear. There is no pleural effusion, pneumothorax, or pulmonary vascular congestion. The heart is normal in size. There is degenerative disc disease of the spine. XR/XR chest 2V IMPRESSION: Clear lungs. Electronically signed by: Chnu Rae MD 09/06/2025 01:13 PM ANDRES
--- OUTSIDE RECORDS SUMMARY | 2025-09-06 11:00 | XMS_ITS | Encounter Summary ---
Author Organization [employer] Address [address] [place] [address] Care Team Providers Care Skin Care Technician Name Role Phone Nedra Pulido MD Primary Care Pro vider Reason for Visit * Reason Comments Nasal Congestion Encounter Details Date Type Department Care Team ([facility] st Contact Info) Description 09/06/2025 11:00 AM EST Office Visit [facility] [address] [place], [place] [phone] Decreased breath sounds (Primary Dx); Subacute frontal sinusitis Social History Tobacco Use Types Packs/Day Years [...] is your housing situation today? I have karenyanely mccracken 08/25/[address] you [...] Sign Reading Time Taken Comments Blood Pressure 145/75 09/06/2025 11:38 AM EST Pulse 70 09/06/2025 11:38 AM EST Temperature 36.6 C (97.9 F) 09/06/2025 11:38 AM EST Respiratory Rate 18 09/06/2025 11:38 AM EST Oxygen Saturation - - Inhaled Oxygen Concentration - - Weight 56.4 kg (124 lb 6.4 oz) 09/06/2025 11:38 AM EST Height 149.9 cm (4' 11 ) 09/06/2025 11:38 AM EST Body Mass Index 25.13 09/06/2025 11:38 AM EST documented in this encounter Plan of Treatment Upcoming Encounters Date Type Department Care Team (Late st Contact Info) Description 09/20/2025 9:00 AM EST Office Visit [facility] MEDICINE [address] [place] [address] Nedra Pulido MD [address] [place] [address] documented as of this encounter Procedures Procedure Name Priority Date/Time Associated Diagnosis Comments XR CHEST 2 VIEWS Routine 09/06/2025 1:00 PM EST Decreased breath sounds POCT INFLUENZA B (ID NOW RAPID MOLECULAR) Routine 09/06/2025 11:54 AM EST Subacute frontal sinusitis POCT INFLUENZA A (ID NOW RAPID MOLECULAR) Routine 09/06/2025 11:54 AM EST Subacute frontal sinusitis POCT RAPID COVID ANTIGEN Routine 09/06/2025 11:54 AM EST Subacute frontal sinusitis documented in this encounter Results * XR Chest 2 Views (09/06/2025 1:00 PM EST) Anatomical Region Laterality Modality Chest Radiographic Katja ging 09/06/2025 1:00 PM EST Narrative 09/06/2025 1:16 PM EST [address] [address] XRay Report Signed Patient: Adina Eisenberg MR#: [id number] 7 : 1960 Acct:[id number] Age/Sex: 65 / F ADM Date: 09/06/25 Loc: HO.HHCX Attending Dr: [facility] Date of Service: 09/06/25 Procedure(s): XR chest 2V Accession Number(s): [id number] cc: Nedra Pulido MD; [facility] Reason for Exam: 65 y.o F with decreased breath sounds EXAMINATION: XR CHEST 2 VIEWS HISTORY: 65 y.o F with decreased breath sounds COMPARISON: There are no prior studies available for comparison. FINDINGS: PA and lateral views of the chest are submitted. The lungs are expanded and clear. There is no pleural effusion, pneumothorax, or pulmonary vascular congestion. The heart is normal in size. There is degenerative disc disease of the spine. XR/XR chest 2V IMPRESSION: Clear lungs. Electronically signed by: Chun Rae MD 09/06/2025 01:13 PM EST RP Dictated By: Chun Rae MD Signed By: <Electronically signed by Chun Rae MD in OV> 09/06/25 1313 DD/ 1300 TD/TT: 09/06/25 1305 Reducing System Operator: Procedure Note Donotneelimainterpreter, Image - 09/06/2025 [facility] [address] [place] [address] XRay Report Signed Patient: Adina EisenbergMR#: [id number] 7 : 1960Acct:[id number] Age/Sex: 65 / FADM Date: 09/06/25 [facility]: [facility] Ordering Physician: Robina Perez [facility] Date of Service: 09/06/25 Procedure(s): XR chest 2V Accession Number(s): [id number] cc: Nedra Pulido MD; [facility] Reason for Exam: 65 y.o F with decreased breath sounds EXAMINATION: XR CHEST 2 VIEWS HISTORY: 65 y.o F with decreased breath sounds COMPARISON: There are no prior studies available for comparison. FINDINGS: PA and lateral views of the chest are submitted. The lungs are expanded and clear. There is no pleural effusion, pneumothorax, or pulmonary vascular congestion. The heart is normal in size. There is degenerative disc disease of the spine. XR/XR chest 2V IMPRESSION: Clear lungs. Electronically signed by: Chun Rae MD 09/06/2025 01:13 PM EST Dictated By: Chun Rae MD Signed By: <Electronically signed by Chun Rae MD in OV> 09/06/25 1313 DD/ 1300 TD/TT: 09/06/25 1305 Reducing System Operator: [facility] IMG XR PROCEDURES Final Resul t * POCT Rapid COVID Ag (09/06/2025 11:54 AM EST) Rapid COVID Ag Negative Swab 09/06/2025 11:5 4 AM EST [facility] POINT OF CARE TEST ENTER/EDIT ORDERABLES Final Result * Influenza A (ID NOW Rapid Molecular) (09/06/2025 11:54 AM EST) Influenza A Negative Negative, Indeterminate [facility] Swab 09/06/2025 11:5 4 AM EST [facility] EVP POINT OF CARE TEST ENTER/EDIT ORDERABLES Final Result Performing Organization Address [facility]/ZIP Co de Phone Number [facility] [address] [place] [address] [phone] * Influenza B (ID NOW Rapid Molecular) (09/06/2025 11:54 AM EST) Influenza B Negative Negative, Indeterminate [facility] Swab 09/06/2025 11:5 4 AM EST [facility] POINT OF CARE TEST ENTER/EDIT ORDERABLES Final Result Performing Organization Address [facility] Co de Phone Number [facility] [address] [place] [address] [phone] documented in this encounter Visit Diagnoses Diagnosis Decreased breath sounds- Primary Abnormal chest sounds Subacute frontal sinusitis documented in this encounter Additional Health Concerns Assessment Noted Time PHQ-9 Depression Total Score: 0 06/05/20 24 11:24 AM EDT documented as of this encounter Care Teams Skin Care Technician Relationship Specialty Start Date End Date Nedra Pulido MD [address] [place] [phone] PCP - General Internal Medicine 03/23/23 documented as of this encounter
--- OUTSIDE RECORDS SUMMARY | 2025-09-06 14:30 | XMS_ITS | Encounter Summary ---
Author Organization [employer] [facility] Address [address] [place] [address] [address] [place] [address] Care Team Providers Care Lockstitch Topstitcher Name Role Phone Mariluz CottonP Primary Care Provider Nedra Richard MD Primary Care Pro vider Encounter Details Date Type Department Care Team (Late st Contact Info) Description 01/31/2023 Orders Only [facility] MEDICINE [address] [place] [phone] Janet Leija LPN Social History Tobacco Use [...] Description 09/20/2025 9:00 AM EST Office Visit [facility] MEDICINE [address] [place] [address] Nedra Pulido MD [address] [place] [address] documented as of this encounter Visit Diagnoses Not on filedocumented in this encounter Care Teams Lockstitch Topstitcher Relationship Specialty Start Date End Date Mariluz Cotton FNP PCP - General Family Medicine 07/15/22 03/22/23 Nedra Pulido MD [address] [place] [phone] PCP - General Internal Medicine 03/23/23 documented as of this encounter
--- OUTSIDE RECORDS SUMMARY | 2025-09-06 14:30 | XMS_ITS | Encounter Summary ---
Author Organization [facility] Address [address] [place] [address] Support Name Relationship Address Phone Natacha Eisenberg Daughter [address] [place] [address] Care Team Providers Care Information Security Systems Instructor Name Role Phone Williams Carrillo Deb Primary Care Provider [phone] Encounter Details Date Type Department Care Team (Latest Contact Info) Description 11/09/2024 Transcribe Orders [facility] Physician Referral Services [address] [place] [address] Pancho Fontaine [address] [place] [address] Bladder wall thickening (Primary Dx) Social History [...] 09/10/2025 11:00 AM EST Office Visit [facility] [address] [place], [place] [phone] Gleason Operator: Alyssa Restrepo 09/17/2025 10:20 AM EST Office Visit [facility] Rheumatology Clinic [address] [place], [place] [phone] Gleason Operator: Iftikhar Haro MD [address] [place] [address] 03/13/2026 10:40 AM EDT Follow-Up [facility] Podiatry [address] [place] [address] Gleason Operator: Anca Morelos DPM [address] [place], [place] [phone] documented as of this encounter Visit Diagnoses Diagnosis Bladder wall thickening- Primary Other specified disorder of bladder documented in this encounter Care Teams Information Security Systems Instructor Relationship Specialty Start Date End Date Nedra Pulido PCP - General 01/04/24 documented as of this encounter
--- OUTSIDE RECORDS SUMMARY | 2025-09-06 14:31 | XMS_ITS | Clinical Summary ---
Author Organization [facility] Address [address] [place] [address] Support Name Relationship Address Phone Natacha Eisenberg Daughter [address] [place] [address] Care Team Providers Care Supervisor Joiners Name Role Phone Kramer GerardoNedra Primary Care Provider [phone] Allergies No known active allergies Medications TRUEplus Lancets lancet 33 gauge TEST BLOOD SUGAR TWICE DAILY 2 Active Freestyle Lite test strips USE TO TEST BLOOD SUGAR TWICE DAILY 2 Active metFORMIN (GLUCOPHAGE) 500 mg tablet Take 1,000 mg by mouth 2 times a day. 2 Active Pentips 4 mm x 32 g USE DIRECTED 1 Active FreeStyle [place] Lite meter TEST BLOOD SUGAR TWICE DAILY 1 Active Alcohol Prep Pads pads, medicated Apply topically to the affected area 2 times a day. 2 Active ketoconazole (NIZORAL) 2% cream Apply topically to the affected area once a day. 2 Active acetaminophen (TYLENOL) 500 mg tablet Take 500 mg by mouth every 6 hours as needed for pain. patch Active prednisoLONE acetate (PRED FORTE) 1% ophthalmic suspensionIndicati ons:Pseudophakia of left eye,Pseudophakia of right eye Instill 1 drop into both eyes 4 times a day. 5 mL 1 2 Active meloxicam (MOBIC) 7.5 mg tablet SMARTSI Tablet(s) By Mouth Every Morning Active losartan (COZAAR) 25 mg tablet SMARTSI Tablet(s) By Mouth Every Morning Active calcium carbonate-vitamin D3 600 mg-20 mcg (800 unit) tablet Take 1 tablet by mouth daily. 4 Active B Complex 1, with folic acid, 0.4 mg tablet Take 1 tablet by mouth once a day. 4 Active SITagliptin phosphate (JANUVIA) 100 mg tabletIndications: Type 2 diabetes mellitus with other specified complication, unspecified whether termite renewal inspector insulin use Take 1 tablet (100 mg total) by mouth once a day. 90 tablet 3 4 Active atorvastatin (LIPITOR) 20 mg tabletIndications: Type 2 diabetes mellitus with other specified complication, unspecified whether termite renewal inspector insulin use,Mixed hyperlipidemia Take 1 tablet (20 mg total) by mouth nightly. 90 tablet [address] (CYMBALTA) 60 mg capsuleIndications :Neuropathy Take 1 capsule (60 mg total) by mouth once a day. 90 capsule 3 4 Active lidocaine (LIDODERM) 5% patch APPLY 1 PATCH TOPICALLY TO SKIN, LEAVE ON FOR 12 HOURS AND OFF FOR 12 HOURS DIRECTED Active methylPREDNISolone (MEDROL) 4 mg tabletIndications: Polyarthralgia TAKE 1 TABLET BY MOUTH ONCE DAILY WITH FOOD 90 tablet 5 Active leflunomide (ARAVA) 20 mg tabletIndications: Polyarthralgia Take 1 tablet (20 mg total) by mouth once a day. 90 tablet 1 5 Active Active Problems Problem Noted Date Diagnosed Date Age-related osteoporosis azucena muir current pathological fracture 11/29/2024 Assessment & Plan (11/30/2024 12:40 PM EST): Very low T-score on recent DXA. Likely low on ca intake, post-menopausal. On systemic glucocorticoid although hope we can get off in time. -labs -aim vit D 30-50 -aim total ca 1,200mg daily --OF website link given -recent x-ray t-/l-spine Jul 2024 without report of compression fracture -ongoing activity -we have discussed options and ideal to start with anabolic --she prefers the thought of romosozumab rather than PTH-based therapy ---once a month injection in clinic to start ----potential adverse effect include but not limited to injection site reaction, changes in calcium levels, headache, unable to use if CA/stroke in past year -----we will start auth Gabbie chahal both feet 01/25/2024 Neuropathy 01/25/2024 Onychomycosis 01/25/2024 [...] knee with non-inflammatory fluid. Now, maybe starting 2021 with progressive changes in hands and [...] knee with non-inflammatory fluid. Now, maybe starting 2021 with progressive changes in hands and [...] knee with non-inflammatory fluid. Now, maybe starting 2021 with progressive changes in hands and [...] ---to repeat labs in 1 month at [facility] Assessment & Plan (01/04/2022 6:52 PM EST): [...] Type Department Care Team Description 06/25/2025 Refill [facility] [address] [place] [address] Diesel Engine Mechanic: Iftikhar Haro MD Polyarthralgia from Last 3 Months Immunizations Immunization Administration Dates Next Due Covid-19, Pfizer, mRNA, Sutter valent, PF 30 mcg/0.3 mL dose (for ages 12 and older) 07/30/2021,07/07/2021 Hep B, Unspecified 12/30/2021 Hepatitis B adult (ENGERIX-B ADULT) vaccine 1 mL IM 12/30/2021 Influenza, Injectable, Quadrivalent, Preservativ e Free 09/07/2021,12/11/2020 Pneumococcal conjugate PCV20 ,polysaccharide MUV102 conjugate, adjuvant, PF (Prevnar 20) 04/29/2023 RSV, [...] Description 09/10/2025 11:00 AM EST Office Visit [facility] [address] [place] [address] Diesel Engine Mechanic: Alyssa Restrepo 09/17/2025 10:20 AM EST Office Visit [facility] [address] [place] [id number] Diesel Engine Mechanic: Iftikhar Haro MD [address] [place] [address] 03/13/2026 10:40 AM EDT Follow-Up [facility] [address] [place] [id number] Diesel Engine Mechanic: Anca Morelos DPM [address] [place] [id number] Health Maintenance Due Date Last Done Comments Cervical Cancer Screening 1960 Cologuard 1960 HPV and Pap Smear 1960 Pap Smear 1960 Sigmoidoscopy 1960 Urine Microalbumin 1970 DTaP,Tdap,and Td Vaccines (1 - Tdap) 12/31/2021 12/30/2021 Hepatitis B Vaccines (2 of 3 - 19+ 3-dose series) 01/27/2022 12/30/2021, 12/30/2021 Ophthalmology Exam 04/27/2023 04/27/2022, 0 04/27/2022, 04/27/2022, Additional history exists Alcohol/Substance Use Screening 10/31/2024 Depression Screening and Follow-Up 10/31/2024 Health Care Proxy Review 10/31/2024 Social Drivers of Health Diana ual Screening 10/31/2024 Mammogram 06/02/2025 06/02/2023, 06/02/2023 COVID-19 Vaccine (5 - 2024-2 6 season) 2025 11/30/2023, 04/29/2023, 07/30/2021, Additional history exists Influenza Vaccine (#1) 2025 09/07/2021, 2020 FOBT / Fit Test 07/20/2025 07/20/2024, 04/2 02/2024, 04/29/2023 Hemoglobin A1C 08/07/2025 02/05/2025, 08/0 02/2024, 11/30/2023, Additional history exists Basic Metabolic Panel 11/30/2025 11/30/2024 , 07/20/2024, 02/03/2024, Additional history exists Fall Risk Screening 11/30/2025 11/30/2024 Colon Cancer Screening 11/16/2033 Colonoscopy 11/16/2033 11/16/2023 HIV Screening Completed 04/29/2023, 04/02, 09/08/2021 Hepatitis C Screening Completed 04/29/2023 Pneumococcal Vaccine: 50+ Years Completed RSV Vaccine (60+ years old a nd patients) Completed 12/01/2023 Zoster Vaccines Completed 12/01/2023, 05/23/2023 Osteoporosis Screening Completed 11/12/2024 Medical Devices Implanted Type Area Men'S Locker Room Attendant Device Identifier Shelf Expiration Date Model / Serial / Lot Lens Intraocular Ashperic Natural Single Piece Acrylic With Blue Light Filter [id number] 22.0d - [id number] - [id number] Implanted:Qty: 1 on 04/14/2022 by Nadir Mcintosh MD at [facility] Lens Right: Eye JOSHUA 01/30/2027 SN60WF 22.0 / [id number] / Lens Intraocular Ashperic Natural Single Piece Acrylic With Blue Light Filter [id number] 22.0d - [id number] - [id number] Implanted:Qty: 1 on 04/21/2022 by Nadir Mcintosh MD at [facility] Lens Left: Eye JOSHUA 02/07/2027 SN60WF 22.0 / [id number] / Procedures * Due to [place] TYMR law, this organization might not be sharing negative HIV tests. Procedure Name Priority Date/Time Associated Diagnosis Comments COMPREHENSIVE METABOLIC PANEL Routine 11/30/2024 12:55 PM EST Polyarthralgia Long-term use of high-risk medication Age-related osteoporosis without current pathological fracture DEXA AXIAL AND TBS Routine 11/12/2024 12 :28 PM EST Post-menopausal POCT GLYCOSYLATED HEMOGLOBIN (HGB A1C) Routine 06/04/2024 10:23 AM EDT COLONOSCOPY 11/16/2023 from Last 3 Months or Most Recently Relevant to Health Maintenance Results * Due to [place] TYMR law, this organization might not be sharing negative HIV tests. * (ABNORMAL) Comprehensive Metabolic Panel (11/30/2024 12:55 PM EST) NA 140 135 - 145 mmol/L 11/30/2024 1:58 PM EST [facility] K 3.9 3.5 - 5.3 mmol/L 11/30/2024 1:58 PM [facility] Cl 106 98 - 107 mmol/L 11/30/2024 1:58 PM [facility] CO2 24 22 - 32 mmol/L 11/30/2024 1:58 PM [facility] Anion Gap 10 5 - 15 11/30/2024 1:58 PM [facility] Glucose 84 65 - 99 mg/dL 11/30/2024 1:58 PM [facility] Creatinine 0.61 0.50 - 1.20 mg/dL 11/30/2024 1:58 PM [facility] Calcium 9.8 8.6 - 10.5 mg/dL 11/30/2024 1:58 PM [facility] Total Protein 6.8 6.0 - 8.0 g/dL 11/30/2024 1:58 PM [facility] Albumin 3.9 3.5 - 5.2 g/dL 11/30/2024 1:58 PM [facility] Bilirubin, Total <0.2(L) 0.2 - 1.2 mg/dL 11/30/2024 1:58 PM [facility] Alkaline Phosphatase 92 35 - 129 U/L 11/30/2024 1:58 PM [facility] AST 28 10 - 40 U/L 11/30/2024 1:58 PM [facility] ALT 25 10 - 40 U/L 11/30/2024 1:58 PM [facility] BUN 17 7 - 23 mg/dL 11/30/2024 1:58 PM [facility] eGFR >90 >=60 mL/min/1 .73m2 11/30/2024 1:58 PM [facility] Comment:The estimated glomer ular [...] - 4.2 g/dL 11/30/2024 1:58 PM EST [facility] A/G Ratio 1.3(L) 1.5 - 3.0 11/30/2024 1:58 PM EST [facility] Blood Structure of peripheral vein / Unknown Venipuncture / Unknown 11/30/2024 12:55 PM EST 11/30/2024 1:27 PM EST us Iftikhar Robertson MD LAB BLOOD ORDERABLES Final Result [facility] [address] [place] [address], * DXA Axial and TBS (11/12/2024 12:28 [...] to obtain the completed interpretation. Workstation ID: [id number] Narrative 11/12/2024 7:09 PM EST EXAM: BONE MINERAL DENSITY PROCEDURE: The bone mineral density (BMD) of the spine and proximal right femur was determined using an external X-ray source(Hologic). SITE: [facility] FINDINGS: L1-L4: BMD 0.70gm/cm2 T-Score -3.1 Z-score: [...] help protect against falls. Resulting Agency Comment [id number] Procedure Note Chun Harrison MD - 11/12/2024 EXAM: BONE MINERAL DENSITY PROCEDURE: The bone mineral density (BMD) of the spine and proximal rightfemur was determined using an external X-ray source(Hologic). SITE: [facility] FINDINGS: L1-L4: BMD 0.70gm/cm2 T-Score -3.1 Z-score: [...] possible to obtain thecompleted interpretation. Workstation ID: [id number] us Iftikhar Robertson MD IMG DXA PROCEDURES Final Re sult * POCT Glycosylated Hemoglobin (HGB A1C), interfaced (06/04/2024 10:23 AM EDT) Hemoglobin A1C, POCT 5.6 <=5.6 % 06/04/2024 10:29 AM EDT [facility] Comment: A1C Recommendation for Non- Adults with Diabetes: <7.0% ADA 2011 Standards of Medical Care in Diabetes Blood 06/04/2024 10:2 3 AM EDT 06/04/2024 10:29 AM EDT us Ibrahima Marshall MD LAB POCT ORDERABLES - DEVICE F inal Result [facility], [facility] [address] [place] [address], * COLONOSCOPY (11/16/2023) Narrative Procedure Note Albert Boyer, - 11/16/2023 3:10 PM EST [facility] Patient Name: Adina Eisenberg Procedure Date: 11/16/2023 3:10 PM Date of : 1960 Admit Type: Outpatient Age: 63 Room: [place] [address] Gender: Female Note Status: Finalized Attending MD: [...] by the physician, the nurse and the medical record technician in the procedure room. Mental Status [...] 0 Note Initiated On: 11/16/2023 3:10 PM us Albert Boyer DO PROVATION PROCEDURES Final Re sult from Last 3 Months or Most Recently Relevant to Health Maintenance Insurance [facility] Advance Directives Documents on File Type Date Recorded Patient Sleeve [employer] [facility] Care Proxy 04/21/2022 1:26 PM 04-21 * Full Code (Latest Code Status on File) Date Activated Date Inactivated Comments 04/21/2022 12:29 PM 04/21/2022 5:06 PM * Full Code Date Activated Date Inactivated Comments 04/14/2022 7:38 AM 04/14/2022 12:14 PM Care Teams Supervisor Joiners Relationship Specialty Start Date End Date Nedra Pulido PCP - General 01/04/24
--- OUTSIDE RECORDS SUMMARY | 2025-09-06 14:31 | XMS_ITS | Encounter Summary ---
Author Organization [employer] Address [address] [place] [address] [address] [place] [address] Care Team Providers Care Precinct I Police Sergeant Name Role Phone Nedra Pulido MD Primary Care Pro vider Reason for Visit * Reason Onset Date Comments Med Refill 08/14/2024 Encounter Details Date Type Department Care Team ([facility] st Contact Info) Description 08/14/2024 Telephone [facility] [address] [place] [address] Nedra Pluido MD [address] [place] [address] Med Refill Social History Tobacco Use Types [...] is your housing situation today? I have kraen mccracken 08/25/[address] you [...] been PCP sending. Telephone call placed to [facility] Rhe[facility] to discuss POC in regards to [...] 2mg and has refills and is at [facility] pharmacy. She states will call pharmacy and see if they can fill the 2mg and if anything is needed in terms of override or anything, they will coordinate. Hillary states they will handle Rx. Please can you check w pt and daughter -she is following w bead stringer at [facility] who is prescribing med Last time I refilled med because pt stopped steroids suddenly after run out whe pt increased by herself med dose and gave med for 17 days until she can f up w specialist to f on plan on steroids Can you check w pt and or bead stringer office ? , if there is urgent [...] 4 MG tablet To be sent to: [facility] - [place], [place] - [address] [place] [address] documented in this encounter Plan of Treatment Upcoming Encounters Date Type Department Care Team (Late st Contact Info) Description 09/20/2025 9:00 AM EST Office Visit [facility] [address] [place] [address] Nedra Pulido MD [address] [place] [address] documented as of this encounter Visit Diagnoses Not on filedocumented in this encounter Additional Health Concerns Assessment Noted Time PHQ-9 Depression Total Score: 0 06/05/20 24 11:24 AM EDT documented as of this encounter Care Teams Precinct I Police Sergeant Relationship Specialty Start Date End Date Nedra Pulido MD [address] [place] [id number] PCP - General Internal Medicine 03/23/23 documented as of this encounter
--- OUTSIDE RECORDS SUMMARY | 2025-09-06 14:31 | XMS_ITS | Clinical Summary ---
Author Organization [employer] Address [address] [facility] [address] [place] [address] Care Team Providers Care Company Accountant Name Role Phone Nedra Pulido MD Primary Care Pro vider Allergies No known active allergies Medications TRUEplus Lancets 33G miscIndications:T ype 2 diabetes mellitus without complication, unspecified whether usp insulin use USE DIRECTED TO TEST BLOOD SUGAR TWICE DAILY 100 each 5 03/02/20 24 Active Alcohol Swabs (Alcohol Prep) 70 % pads USE TWICE DAILY 100 each 11 03/02/20 24 Active lidocaine (Lidoderm) 5 % patchIndications: Other back pain, unspecified chronicity APPLY 1 PATCH TOPICALLY TO SKIN, LEAVE ON FOR 12 HOURS AND OFF FOR 12 HOURS DIRECTED 30 patch 2 10/29/20 24 Active Blood Glucose Monitoring Suppl (FreeStyle [place] Lite) w/Device kitIndications:Ty pe 2 diabetes mellitus without complication, unspecified whether predatory animal exterminator insulin use Inject 1 Device under the skin Once per day. 1 kit 02/06/20 25 Active ciclopirox (Penlac) 8 % solution [...] Once per day. 90 tablet 1 06/25/20 Active leflunomide (Arava) 20 MG tablet Take 20 mg by mouth Once per day. Take with food. 03/01/20 Active metFORMIN XR (Glucophage-XR) 500 MG 24 hr tablet Take 1 tablet (500 mg) by mouth with evening meal. Do not crush, chew, or split. 90 tablet 1 06/25/20 25 2025 Active Acetaminophen Extra Strength 500 MG tablet TAKE 1 TABLET BY MOUTH EVERY 6 HOURS NEEDED FOR MILD PAIN 60 tablet 2 06/25/20 Active estradiol (Estrace) 0.1 MG/GM vaginal cream apply 1 GRAM in vulva TWICE A WEEK DIRECTED 42 g 06/25/20 25 Active omeprazole (PriLOSEC) [address] capsuleIndication s:Complaint of melena,Anemia, unspecified type Take 1 capsule (40 mg) by mouth before breakfast. Do not crush or chew. 90 capsule 06/28/20 25 2025 Active linaGLIPtin (Tradjenta) 5 MG tablet Take 1 tablet (5 mg) by mouth Once per day. 90 tablet 1 08/06/20 25 2025 Active losartan (Cozaar) 25 MG tablet TAKE 1 TABLET BY MOUTH EVERY MORNING 90 tablet 1 08/29/20 Active glucose blood (FREESTYLE LITE) test strip USE TWICE DAILY TO TEST BLOOD SUGAR 100 strip 11 08/29/20 Active fluticasone (Flonase) 50 MCG/ACT nasal sprayIndications: Subacute frontal sinusitis Administer 1-2 sprays into each nostril Once per day. Shake gently. Before first use, prime pump. After use, clean tip and replace cap. 16 g 2 09/06/20 25 2025 Active guaiFENesin (Mucinex) 600 MG 12 hr tabletIndications :Subacute frontal sinusitis Take 2 tablets (1,200 mg) by mouth 2 times daily. Do not crush, chew, or split. 120 tablet 11 09/06/20 25 2025 Active cetirizine (ZyrTEC) 10 MG tabletIndications :Subacute frontal sinusitis Take 1 tablet (10 mg) by mouth Once per day. 30 tablet 5 09/06/20 25 2025 Active glucose blood (FREESTYLE LITE) test stripIndications: Type 2 diabetes mellitus without complication, unspecified whether usp insulin use USE DIRECTED TO TEST BLOOD SUGAR TWICE DAILY 100 strip 3 07/18/20 24 2024 Discontinued losartan (Cozaar) 25 MG tablet TAKE 1 TABLET BY MOUTH EVERY DAY IN THE MORNING 90 tablet 1 02/21/20 25 2024 Discontinued Active Problems Problem Noted Date Diagnosed [...] -worse in hands and knees -from previous unit assembler' note seen 12/2021: -aspiration of L knee [...] of meloxicam If severe pain -referred to unit assembler - gave info today to call [facility] rheumatology. Assessment & Plan (04/29/2023 9:07 PM EDT): Pt w worsening ,deforming arthritis of mx joints -worse in hands and knees -from previous unit assembler' note seen 12/2021: -aspiration of L knee [...] meloxicam If severe pain -referred today to unit assembler Health care maintenance 04/29/2023 Assessment & Plan (05/23/2023 9:36 PM EDT): -Quantiferon 04/2023 neg. -pap smear:05/31/2022: neg/HPV neg-to repeat in 5 years -MM:never-referred already. Appt for 05/2023 -colonoscopy: never ,referred to GI, gave info for [facility] GI today. -vaccines:s/p hep B x1,covid [...] hep B x1,covid x2-Bivalent dose today ,TD today , will offer shingrix vaccine at next visit -labs x annual exam today in fasting -pt agreed to have STI testing including HIV to have for baseline Constipation 04/29/2023 Assessment & Plan (05/23/2023 9:23 PM EDT): Chronic constipation Benign abd exam -improve diet -trial w metamucil daily and colace prn -referred to GI --- gave info to pt today to call [facility] GI Assessment & Plan (04/29/2023 9:16 [...] - appt for 05/27/2023 -will refer to firefighter at next visit w result Assessment & Plan (04/29/2023 8:56 PM EDT): From chart record there is mention of cardiomegaly -pt recalls was told to f up w cardiology but never established care. Noted trace pitting bl edema -referred x TTE -will refer to firefighter at next visit w result Essential hypertension [...] wit h other specified complication, unspecified whether usp insulin use 04/28/2023 Assessment & Plan (05/23/2023 9:27 PM EDT): -pt on metformin 500 mg BID-denies taking 2 tab BID - 04/2023: hb1AC is 6.1, LDL 72 -continue metformin 500 mg BID -DM labs in 6 mo -ophthalmology 03/2023 To f in 1 y -will refer to surety bond agent at future visit Assessment & Plan (04/29/2023 9:09 PM EDT): -pt on metformin 500 mg BID-denies taking 2 tab BID -today hb1AC is 6 ,cbg 115 -continue metformin 500 mg BID -DM labs -ophthalmology 03/2023 To f in 1 y -will refer to surety bond agent at future visit Polyarthralgia 01/02/2022 12/01/2023 Overview [...] comp 04/29/2023 04/29/2023 Adjustment disorder 04/29/2023 06/05/20 24 Assessment & Plan (05/23/2023 9:27 PM EDT): [...] Encounters Date Type Department Care Team Description 09/06/2025 11:00 AM EST Office Visit [facility] [address] [place] [address] Decreased breath sounds (Primary Dx); Subacute frontal sinusitis 09/06/2025 Travel 08/28/2025 Refill [facility] [address] [place] [address] Nedra Pulido MD Type 2 diabetes mellitus without complications (HCC) 08/21/2025 9:45 AM EDT Office Visit [facility] [address] [place] [address] Vanda Colon, OD Presbyopia (Primary Dx) 08/21/2025 Travel 08/07/2025 Telephone [facility] [address] [place] [address] [phone] Nedra Pulido MD Med Refill 08/06/2025 Orders Only [facility] [address] [place] [address] [phone] Nedra Pulido MD 08/05/2025 Telephone [facility] [address] [place] [address] [phone] Jennifer Drew, MaryD Prior Authorization 08/02/2025 Travel 07/22/2025 Telephone [facility] [address] [place] [address] [phone] Nedra Pulido MD 07/11/2025 9:30 AM EDT Office Visit [facility] [address] [place] [address] Vanda Colon, OD Diabetes type 2, no ocular involvement (CMS/HCC) (Primary Dx); Dry eyes; Pseudophakia of both eyes; Presbyopia 07/11/2025 Travel 06/28/2025 9:00 AM EDT Office Visit [facility] [address] [place] [address] [phone] Abi Baldwin MD EIC (epidermal inclusion cyst) (Primary Dx) 06/28/2025 Orders Only [facility] [address] [place] [address] [phone] Nedra Pulido MD Complaint of melena (Primary Dx); Anemia, unspecified type 06/28/2025 Travel 06/27/2025 Results Follow-Up [facility] [address] [place] [address] [phone] Nedra Pulido MD POCT HGB A1C, POCT Glucose, CBC, Additional followed-up results: 4 06/25/2025 9:15 AM EDT Office Visit [facility] [address] [place] [address] [phone] Nedra Pulido MD Bladder wall thickening (Primary Dx); Type 2 diabetes mellitus without complication, unspecified whether predatory animal exterminator insulin use ([facility]); Arthritis; Polyarthralgia; Abnormal echocardiogram; Other back pain, unspecified chronicity; Mixed hyperlipidemia; Osteoporosis without current pathological fracture, unspecified osteoporosis type; Type 2 diabetes mellitus with other specified complication, unspecified whether predatory animal exterminator insulin use (CMS/HCC); Other chronic pain; Annual physical exam; Essential hypertension; Health care maintenance; Vulvar pruritus; Atrophic vulvitis 06/25/2025 Refill [facility] [address] [place] [address] Nedra Pulido MD 06/25/2025 Refill [facility] [address] [place] [address] [phone] Nedra Pulido MD Type 2 diabetes mellitus without complication, unspecified whether predatory animal exterminator insulin use (CMS/HCC) 06/25/2025 Travel 06/18/2025 Patient Outreach [facility] [address] [place] [address] [phone] Nedra Pulido MD Pre-visit Planning ([facility] screening completed on 01/25/25 ) from Last 3 Months Immunizations Immunization Administration [...] 18 09/06/2025 11:38 AM EST Oxygen Saturation 99% 06/28/2025 9:05 AM EDT Inhaled Oxygen Concentration - - Weight 56.4 kg (124 lb 6.4 oz) 09/06/2025 11:38 AM EST Height 149.9 cm (4' 11 ) 09/06/2025 11:38 AM EST Body Mass Index 25.13 09/06/2025 11:38 AM EST Plan of Treatment Upcoming Encounters Date Type Department Care Team (Late st Contact Info) Description 09/20/2025 9:00 AM EST Office Visit [facility] [address] [place] [address] [phone] Nedra Pulido MD [address] [place], [place] [phone] Health Maintenance Due Date Last Done Comments CT Colonography 1960 FIT DNA/Cologuard 1960 FIT 1960 FOBT 1960 Sigmoidoscopy 1960 DTaP/Tdap/Td Vaccines (1 - Tdap) 12/31/2021 12/30/2021 Hepatitis B Vaccines (2 of 3 - 19+ 3-dose series) 01/27/2022 12/30/2021, 12/30/2021 Depression Screening 06/05/2025 06/05/2024, 06/05/20 24 COVID-19 Vaccine ( season) 2025 11/30/2023, 04/29/2023, 07/30/2021, Additional history exists Influenza Vaccine (#1) 2025 09/07/2021, 2020 Diabetes: Urine Protein Screening 07/20/2025 07/20/2024, 02/23/2024, 09/08/2021 Diabetes: Hemoglobin A1C 12/28/2025 025, 06/25/2025, 02/05/2025, Additional history exists SDOH Screening 01/25/2026 01/25/2025 Alcohol/Substance Use Screening 02/05/2026 02/05/2025 Diabetes: Foot Exam 03/13/2026 03/13/2025 Mammogram 06/07/2026 06/07/2024, 06/02/2023 Lipid Panel 06/27/2026 06/27/2025, 07/02, 02/23/2024, Additional history exists Tobacco Screening 09/06/2026 09/06/2025 Cervical Cancer Screening 05/31/2027 HPV/Cotest 05/31/2027 05/31/2022 Pap Smear 05/31/2027 05/31/2022 Eye Exam 07/11/2027 07/11/2025, 07/01, 07/11/2025, Additional history exists Colonoscopy 11/16/2030 11/16/2023 Colorectal Cancer Screening 11/16/2030 [...] 1:00 PM EST Decreased breath sounds POCT RAPID COVID ANTIGEN Routine 09/06/2025 11:54 AM EST Subacute frontal sinusitis POCT INFLUENZA A (ID NOW RAPID MOLECULAR) Routine 09/06/2025 11:54 AM EST Subacute frontal sinusitis POCT INFLUENZA B (ID NOW RAPID MOLECULAR) Routine 09/06/2025 11:54 AM EST Subacute frontal sinusitis FERRITIN Routine 06/27/2025 9:00 AM EDT Annual physical exam IRON AND TOTAL IRON BINDING CAPACITY Routine 06/27/2025 9:00 AM EDT Annual physical exam VITAMIN D,25-OH,TOTAL,IA Routine 06/27/2025 9:00 AM EDT Annual physical exam VITAMIN B12/FOLATE, SERUM PANEL Routine 06/27/2025 9:00 AM EDT Annual physical exam TSH W/REFLEX TO FT4 Routine 06/27/2025 9 :00 AM EDT Annual physical exam LIPID PANEL, STANDARD Routine 06/27/2025 9:00 AM EDT Annual physical exam HEMOGLOBIN A1C Routine 06/27/2025 9:00 AM EDT Annual physical exam COMPREHENSIVE METABOLIC PANEL Routine 06/27/2025 9:00 AM EDT Annual physical exam CBC Routine 06/27/2025 9:00 AM EDT Annual physical exam POCT GLUCOSE Routine 06/25/2025 9:33 AM EDT Type 2 diabetes mellitus without complication, unspecified whether usp insulin use (CMS/HCC) POCT GLYCATED HEMOGLOBIN, TOTAL Routine 06/25/2025 9:33 AM EDT Type 2 diabetes mellitus without complication, unspecified whether predatory animal exterminator insulin use (CMS/HCC) AMB REFERRAL TO PODIATRY Routine 03/13/2025 Type 2 diabetes mellitus without complication, unspecified whether usp insulin use (CMS/HCC) ALBUMIN, RANDOM URINE W/CREATININE Routine 07/20/2024 10:25 AM EDT Annual physical exam BI MAMMOGRAM [...] Recently Relevant to Health Maintenance Results * XR Chest 2 Views (09/06/2025 1:00 PM EST) Anatomical Region Laterality Modality Chest Radiographic Katja ging 09/06/2025 1:00 PM EST Narrative 09/06/2025 1:16 [place] [address] XRay Report Signed Patient: Adina Eisenberg MR#: [id number] 7 : 1960 Acct:[id number] Age/Sex: 65 / F ADM Date: 09/06/25 Loc: HO.HHCX Attending Dr: Robina MIJARES Ordering Physician: Robina Perez Date of Service: 09/06/25 Procedure(s): XR chest 2V Accession Number(s): [id number] cc: Nedra Pulido MD; Robina Perez Reason for Exam: 65 y.o F with [...] 09/06/25 1313 DD/ 1300 TD/TT: 09/06/25 1305 Music Educator: Procedure Note Donotuseinterpreter, Image - 09/06/[address] [address] XRay Report Signed Patient: Adina Eisenberg#: [id number] 7 : 1960Acct:[id number] Age/Sex: 65 / FADM Date: 09/06/25 Loc: HHCX Attending Dr: Robina [facility] Date of Service: 09/06/25 Procedure(s): XR chest 2V Accession Number(s): [id number] cc: Nedra Pulido MD; [facility] Reason for Exam: 65 y.o F [...] 09/06/25 1313 DD/ 1300 TD/TT: 09/06/25 1305 Music Educator: [facility] IMG XR PROCEDURES Final Resul t * Influenza B (ID NOW Rapid Molecular) (09/06/2025 11:54 AM EST) Pathologist [facility] Influenza B Negative Negative, Indeterminate [facility] Swab 09/06/2025 11:5 4 AM EST [facility] POINT OF CARE TEST ENTER/EDIT ORDERABLES Final Result Performing Organization Address [facility]/ZIP Co de Phone Number [facility] [address] [place] [phone] * Influenza A (ID NOW Rapid Molecular) (09/06/2025 11:54 AM EST) [facility] Influenza A Negative Negative, Indeterminate [facility] Swab 09/06/2025 11:5 4 AM EST [facility] POINT OF CARE TEST ENTER/EDIT ORDERABLES Final Result Performing Organization Address City/[facility] de Phone Number [facility] [address] [place] [address] [phone] * POCT Rapid COVID Ag (09/06/2025 11:54 AM EST) [facility] Rapid COVID Ag Negative Swab 09/06/2025 11:5 4 AM EST [facility] POINT OF CARE TEST ENTER/EDIT ORDERABLES Final Result * Vitamin D, 25-Hydroxy, Total, Immunoassay (06/27/2025 9:00 AM EDT) [facility] Vitamin D 25-OH Total 77.7 >30 ng/mL [facility] Comment: Health Based Reference Values*< 20 ng/mL Eyryxyhhz29-68 ng/mL Insufficient> 30 ng/mL Sufficient*Dawood GALLOWAY. N Engl J Med. 2007;357:266-280There is no well-established upper level of normal vitamin Dlevels. Some laboratories use 50 ng/mL as an upper limit ofnormal. However, toxicity is patient-dependent and may occurat any level. Careful correlation with the patient'spresentation is necessary and, if there is concern forvitamin D toxicity, treatment should be consideredirrespective of the serum level.Care must be taken in interpreting Vitamin D results fromdifferent laboratories and methodologies. Published datademonstrated that results from patients undergoinghemodialysis may show a negative bias when tested withvarious automated 25-OH vitamin D assays when compared toLC-MS/MS.When testing samples from patients whose predominant form ofVitamin D is Vitamin D2, such as patients receiving VitaminD2 supplementation, results that are subtherapeutic shouldbe confirmed with another method such as LC-MS/MS. Blood Venous blood specimen / Unknown 06/27/2025 9:00 AM EDT 06/27/2025 11:28 AM EDT us Nedra Carrillo MD LAB BLOOD ORDERAB LES Final Result Performing Organization Address [facility] Co de Phone Number [facility] [address] [place] [address] [phone] * Vitamin B12 (Cobalamin) and Folate Panel, Serum (06/27/2025 9:00 AM EDT) Vitamin B12 380 200 - 900 pg/mL [facility] Comment:NORMAL 200-900 PG/ML INDETERMINATE 160-199 PG/ML DEFICIENT < 160 PG/ML Folate 9.2 > or = 4.0 ng/mL [facility] Comment:Reference Values:> o r = 4.0 ng/mL< 4.0 ng/mL suggests folate deficiency Methotrexate, aminopterin and folinic acid(leucovorin) are chemotherapeutic agents whose molecularstructures are similar to folate; therefore, the Architectfolate assay cannot be used for patients using these drugs. Blood 06/27/2025 9:00 AM EDT 06/27/2025 11:28 AM EDT Nedra Carrillo MD LAB BLOOD ORDERAB LES Final Result Performing Organization Address [facility] Co de Phone Number [facility] [address] [place] [phone] * TSH with Reflex to Free T4 (06/27/2025 9:00 AM EDT) [facility] TSH reflex Free T4 2.47 0.32 - 4.0 uIU/mL [facility] Blood 06/27/2025 9:00 AM EDT 06/27/2025 11:28 AM EDT Nedra Carrillo MD LAB BLOOD ORDERAB LES Final Result Performing Organization Address City/[facility]/ZIP Co de Phone Number [facility] [address] [place] [address] [phone] * (ABNORMAL) Iron And Total Iron Binding Capacity (06/27/2025 9:00 AM EDT) [facility] Iron 81 30 - 160 mcg/dL [facility] Total Iron Binding Capacity 217(L) 228 - 428 mcg/dL [facility] Percent Iron Saturation 37 15 - 50 % [facility] Unsaturated Iron Binding 136 ug/dL [facility] Blood Venous blood specimen / Unknown 06/27/2025 9:00 AM EDT 06/27/2025 11:28 AM EDT us Nedra Carrillo MD LAB BLOOD ORDERAB LES Final Result [facility] [address] [place] [address] [phone] * (ABNORMAL) CBC (06/27/2025 9:00 AM EDT) [facility] White Blood Count 5.6 4.8 - 10.8 X10*3/uL [facility] Red Blood Count 3.94(L) 4.20 - 5.50 X10*6/uL [facility] Hemoglobin 11.3(L) 12.0 - 16.0 g/dl [facility] Hematocrit 35.9(L) 37.0 - 47.0 % [facility] Mean Corpuscular Volume 91.1 80.0 - 98.0 fL [facility] Mean Corpuscular Hemoglobin 28.7 27.0 - 33.0 pg [facility] Mean Corpuscular HGB Conc 31.5 31.0 - 35.0 g/dl [facility] Red Cell Distribution Width 13.1 11.0 - 16.0 % [facility] Platelet Count 205 160 - 400 X10*3/uL [facility] Mean Platelet Volume 12.3 9.4 - 12.3 fL [facility] NRBC Pct Auto 0.0 0.0 - 0.2 /100WBC [facility] NRBC Abs Auto 0.000 0.0 - 0.012 X10*3/uL [facility] Blood Venous blood specimen / Unknown 06/27/2025 9:00 AM EDT 06/27/2025 11:15 AM EDT us Nedra Carrillo MD LAB BLOOD ORDERAB LES Final Result [facility] [address] [place] [address] [phone] * Hemoglobin A1c (06/27/2025 9:00 AM EDT) Hemoglobin A1c 5.5 <6.0 % [facility] Comment:Hemoglobin A1C Refer ence Range Adults: 4.8 - 6.0 % Non diabetic: < 6.0 % Goal: < 7.0 %Additional Action Suggested: > 8.0 %Note: Hemoglobin A1c results are invalid for patients with abnormal amounts of HbF. Blood transfusions may impact the HbA1c concentration in the patient sample. Estimated Average Glucose 111 mg/dL [facility] Comment:eAG = Estimated ave rage glucose which is %A1C expressed asaverage glucose, using the formula of the Y9P-BnwsxtoAeadknr Glucose study (ADAG), Diabetes Care, Vol.31,#8,2007 Blood Venous blood specimen / Unknown 06/27/2025 9:00 AM EDT 06/27/2025 11:15 AM EDT us Nedra Carrillo MD LAB BLOOD ORDERAB LES Final Result Performing Organization Address City/[facility]/ZIP Co de Phone Number [facility] [address] [place] [address] [phone] * Ferritin (06/27/2025 9:00 AM EDT) Pathologist [facility] Ferritin 100 10 - 250 ng/mL [facility] Blood Venous blood specimen / Unknown 06/27/2025 9:00 AM EDT 06/27/2025 11:28 AM EDT us Nedra Carrillo MD LAB BLOOD ORDERAB LES Final Result Performing Organization Address City/[facility] Co de Phone Number [facility] [address] [place] [phone] * (ABNORMAL) Lipid Panel, Standard (06/27/2025 9:00 AM EDT) Triglycerides 185(H) <150 mg/dL [facility] Comment:Desirable Triglyceri de: less than 150 mg/dLBorderline High Triglyceride 150-199 mg/dLHigh Triglyceride: 200-499 mg/dLVery High Triglyceride: greater than or equal to 5OO mg/dL Cholesterol 187 <200 mg/dL [facility] Comment:Desirable Cholestero l: less than 200 mg/dLBorderline High Cholesterol: 200-239 mg/dLHigh Cholesterol: greater than 239 mg/dL LDL Cholesterol Calculated 117(H) <100 mg/dL [facility] Comment:Desirable LDL: less than 100 mg/dLNear Optimal/Above Optimal LDL: 110- 129 mg/dLBorderline High LDL: 130-159 mg/dLHigh LDL: 160-189 mg/dLVery High LDL: greater than or equal to 190 mg/dL HDL Cholesterol 33(L) >40 mg/dL [facility] Comment:Desirable HDL: great er than 40 mg/dL Note: This HDL assay may give artificially low results in patients with liver disease. Blood Venous blood specimen / Unknown 06/27/2025 9:00 AM EDT 06/27/2025 11:28 AM EDT us Nedra Carrillo MD LAB BLOOD ORDERAB LES Final Result [facility] [address], [place] [phone] * (ABNORMAL) Comprehensive Metabolic Panel (06/27/2025 9:00 AM EDT) Sodium 142 135 - 145 mmol/L [facility] Potassium 3.6 3.3 - 5.1 mmol/L [facility] Chloride 109(H) 96 - 108 mmol/L [facility] Carbon Dioxide 28 22 - 29 mmol/L [facility] Anion Gap 9(L) 12 - 20 [facility] Urea Nitrogen (BUN) 24(H) 9 - 16 mg/dL [facility] Creatinine, Serum 0.88 0.5 - 1.4 mg/dL [facility] Estimated Glomerular Filt Rate >60 [facility] Comment:Chronic Kidney Disea se: Estimated GFR < 60 mL/min/1.64d8Tidplh Kidney Disease: Estimated GFR < 15 mL/min/1.73m2 Glucose 83 60 - 115 mg/dL [facility] Calcium 9.5 8.4 - 10.2 mg/dL [facility] Bilirubin, Total 0.2 0.0 - 1.0 mg/dL [facility] Aspartate Amino Transferase 34(H) 5 - 31 U/L [facility] Alanine Aminotransferase 36(H) 0 - 31 U/L [facility] Total Protein 6.8 6.5 - 8.0 g/dL [facility] Albumin Level 4.2 3.5 - 5.0 g/dL [facility] Alkaline Phosphatase 77 39 - 117 U/L [facility] Blood Venous blood specimen / Unknown 06/27/2025 9:00 AM EDT 06/27/2025 11:28 AM EDT Nedra Carrillo MD LAB BLOOD ORDERAB LES Final Result [facility] [address] [place] [phone] * (ABNORMAL) POCT HGB A1C (06/25/2025 9:33 [...] 10:25 AM EDT) Creatinine, Urine 191.12 mg/dL [facility] Microalbumin Urine 20.0 mg/L [facility] Microalbum Creatinine Ratio Ur 10.4 <30 ug/mg cr [facility] Comment:Albumin/Creatinine R atio Reference Ranges: Normal: < 30 ug/mg creatinine Microalbuminuria: 30 - 300 ug/mg creatinineClinical Albuminuria: > 300 ug/mg creatinine Urine (Urine, Random) 07/20/2024 10:25 AM EDT 07/20/2024 11:42 AM EDT us Nedra Carrillo MD LAB URINE ORDERAB LES Final Result [facility] [address] [place] [phone] * BI Mammogram Screening Tomosynthesis Bilateral (06/07/2024 11:30 AM EDT) Anatomical Region Laterality Modality Breast Bilateral Mammography 06/07/2024 11:3 0 AM EDT Narrative 07/05/2024 8:56 AM EDT [address] [place] [address] Mammography Report Signed Patient: Adina Eisenberg MR#: [id number] 7 : 1960 Acct:[id number] Age/Sex: 64 / F ADM Date: 06/07/24 Loc: [facility] Attending Dr: Nedra Carrillo MD Ordering Physician: Nedra Pulido MD Re sults: 1Negative Date of Service: 06/07/24 Follow Up: 1 Year From Orig inal Mammogram Procedure(s): MM tomosynthesis screening BI Accession Number(s): [id number] cc: Nedra Pulido MD EXAMINATION: MM SCREENING [...] 07/05/24 0853 DD/ 1130 TD/TT: 06/07/24 1200 Music Educator: Procedure Note Donotuseinterpreter, Image - 07/05/2024 [facility] [address] [place], [place] [address] Mammography Report Signed Patient: Adina EisenbergMR#: [id number] 7 : 1960Acct:[id number] Age/Sex: 64 / FADM Date: 06/07/24 Loc: LIA Attending Dr: Nedra Carrillo MD Ordering Physician: Nedra Pulido sults: 1Negative Date of Service: 06/07/24Follow Up: 1 Year From Orig inal Mammogram Procedure(s): MM tomosynthesis screening BI Accession Number(s): [id number] cc: Nedra Pulido MD EXAMINATION: MM SCREENING [...] 07/05/24 0853 DD/ 1130 TD/TT: 06/07/24 1200 Music Educator: us Nedra Carrillo MD IMG BI PROCEDURES Edited Result - Final * Hm Colonoscopy (11/16/2023 5:57 PM EST) Historical Provider HEALTH MAINTENANCE Final Result * Hepatitis C Antibody with Reflex to HCV, RNA, Quantitative, Real-Time PCR (04/29/2023 10:47 AM EDT) Hepatitis C Antibody NON-REACT YANY NON-REACT YANY [facility] Comment: HCV antibody was non-reactive. There is no laboratory evidence of HCV infection. In most cases, no further action is required. However, if recent HCV exposure is suspected, a test for HCV RNA (test code 55585) is suggested. For additional information please refer to http://education.SoundCloud/faq/RTZ36z3 (This link is being provided for informational/ educational purposes only.) Blood Venous blood specimen / Unknown 04/29/2023 10:47 AM EDT 04/29/2023 10:48 AM EDT Narrative [facility] - 05/07/2023 10:28 PM EDT FASTING:UNKNOWN PATIENT UNABLE TO VOID; ADVISED TO RETURN FOR COLLECTION. FASTING: UNKNOWN Nedra Carrillo MD LAB BLOOD ORDERAB LES Final Result [facility] [address], [place] [address] [facility] [address] [place] [address] * THINPREP TIS PAP AND HPV mRNA [...] has been evaluated with computer assisted technology. [facility] Horizontal Resaw Operator: SEE COMMENT [facility] Comment: MXD, CT (ASCP) CT screening location: [place] [address] HPV nRNA E6/E7 Not Detected Not Detected [facility] Comment: Methodology: No Experience-Mediated Amplification This assay detects E6/E7 viral messenger RNA (mRNA) from 14 high-risk HPV types (16,18,31,33,35,39,45,51,52,56,58,59,66,68). Cervical sources are required for HPV testing. If a vaginal source from a patient who has had a total hysterectomy with removal of cervix was submitted, please contact the testing laboratory for alternative testing options. For additional information, please refer to http://education.SoundCloud/faq/RMX234v5 (This link if provided for information/ educational purposes only.) Interpretation/Res ult: [facility] Comment: Negative for intraepithelial lesion or malignancy. Atrophic pattern; predominantly parabasal cells LMP: NONE [facility] Prev. BX: NONE [facility] Prev. PAP: NONE [facility] SOURCE: None given [facility] Statement Of Adequacy: SATISFACTORY FOR EVALUATION [facility] 05/31/2022 Ruth Pinzon [facility] PATHOLOGY ORDERABLES Final Result [facility] [address] from Last 3 Months or Most Recently Relevant to Health Maintenance Insurance [facility] STANDARD Care Teams Company Accountant Relationship Specialty Start Date End Date Nedra Pulido MD [address] [place] [phone] PCP - General Internal Medicine 03/23/23
--- OUTSIDE RECORDS SUMMARY | 2025-09-06 14:31 | XMS_ITS | Encounter Summary ---
Author Organization [employer] Address [address] [place] [address] Care Team Providers Care Count Team Clerk Name Role Phone Nedra Pulido MD Primary Care Pro vider Encounter Details Date Type Department Care Team (Late st Contact Info) Description 10/21/2024 Orders Only [facility] MEDICINE [address] [place] [address] ProviderCamron MD Social History Tobacco Use Types [...] Description 09/20/2025 9:00 AM EST Office Visit [facility] [address] [place] [phone] Nedra Pulido MD [address] [place] [phone] documented as of this encounter Procedures Procedure Name Priority Date/Time Associated Diagnosis Comments HM COLONOSCOPY Routine 11/16/2023 5:57 PM EST documented in this encounter Results * Hm Colonoscopy (11/16/2023 5:57 PM EST) Historical Provider HEALTH MAINTENANCE Final Result documented in this encounter Visit Diagnoses Not on filedocumented in this encounter Additional Health Concerns Assessment Noted Time PHQ-9 Depression Total Score: 0 06/05/20 24 11:24 AM EDT documented as of this encounter Care Teams Count Team Clerk Relationship Specialty Start Date End Date Nedra Pulido MD [address] [place] [address] [phone] PCP - General Internal Medicine 03/23/23 documented as of this encounter
--- OUTSIDE RECORDS SUMMARY | 2025-09-06 14:31 | XMS_ITS | Encounter Summary ---
Author Organization [employer] Address [address] [facility] [address] [place] [address] Care Team Providers Care Meat Stringer Name Role Phone Nedra Pulido MD Primary Care Pro vider Reason for Visit * Reason Comments Med Refill Encounter Details Date Type Department Care Team ([facility] st Contact Info) Description 12/16/2023 Refill [facility] [address] [place], [place] [phone] Nedra Pulido MD [address] [place] [address] Social History Tobacco Use Types Packs/Day Years [...] Description 09/20/2025 9:00 AM EST Office Visit [facility] [address] [place] [phone] Nedra Pulido MD [address] [place] [phone] documented as of this encounter Visit Diagnoses Not on filedocumented in this encounter Additional Health Concerns Assessment Noted Time PHQ-9 Depression Total Score: 5 04/29/20 23 9:17 AM EDT documented as of this encounter Care Teams Meat Stringer Relationship Specialty Start Date End Date Nedra Pulido MD [address] [place] [phone] PCP - General Internal Medicine 03/23/23 documented as of this encounter
--- OUTSIDE RECORDS SUMMARY | 2025-09-06 14:31 | XMS_ITS | Encounter Summary ---
Author Organization [employer] Address [address] [place] [address] Care Team Providers Care Turkey Cleaner Name Role Phone Nedra Pulido MD Primary Care Pro vider Encounter Details Date Type Department Care Team (Latest Contact Info) Description 09/06/2025 Travel Social History Tobacco Use Types Packs/Day [...] Description 09/20/2025 9:00 AM EST Office Visit [facility] [address] [place] [phone] Nedra Pulido MD [address] [place] [phone] documented as of this encounter Visit Diagnoses Not on filedocumented in this encounter Additional Health Concerns Assessment Noted Time PHQ-9 Depression Total Score: 0 06/05/20 24 11:24 AM EDT documented as of this encounter Care Teams Turkey Cleaner Relationship Specialty Start Date End Date Nedra Pulido MD [address] [place] [phone] PCP - General Internal Medicine 03/23/23 documented as of this encounter
--- OUTSIDE RECORDS SUMMARY | 2025-09-06 14:31 | XMS_ITS | Encounter Summary ---
Author Organization [facility] Address [address] [place] [address] Support Name Relationship Address Phone Natacha Eisenberg Daughter [address] [place] [address] Care Team Providers Care Energy Rater Name Role Phone Kramer GerardoNedra G Primary Care Provider [phone] Reason for Visit * Reason Onset Date Comments PAC Surgery/procedure Scheduling 05/27/2023 Encounter Details Date Type Department Care Team (Late st Contact Info) Description 05/27/2023 Telephone [facility] Endoscopy [address] [place] [address] Telephone Intake, Staff PAC Surgery/procedure Scheduling Social [...] Description 09/10/2025 11:00 AM EST Office Visit [facility] [address] [place] [address] Composition Stone Applicator: Alyssa Restrepo 09/17/2025 10:20 AM EST Office Visit [facility] Rheumatology Clinic [address] [place] [address] Composition Stone Applicator: Iftikhar Haro MD [address] [place] [phone] 03/13/2026 10:40 AM EDT Follow-Up [facility] Building Podiatry [address] [place] [address] Composition Stone Applicator: Anca Morelos DPM [address] [place] [address] documented as of this encounter Visit Diagnoses Not on filedocumented in this encounter Care Teams Energy Rater Relationship Specialty Start Date End Date Nedra Pulido PCP - General 01/04/24 documented as of this encounter
--- OUTSIDE RECORDS SUMMARY | 2025-09-06 14:31 | XMS_ITS | Encounter Summary ---
Author Organization [employer] Address [address] [place] [address] 7 [place] [address] Care Team Providers Care Vegetable Washing Machine Operator Name Role Phone Mariluz Cotton WEAVER WIRE [employer]OM Primary Care Provider Nedra Richard MD Primary Care Pro vider Encounter Details Date Type Department Care Team (Late st Contact Info) Description 12/30/2022 Orders Only [facility] [address] [place] [address] Nikole Hartman LPN Social History Tobacco Use [...] Description 09/20/2025 9:00 AM EST Office Visit [facility] MEDICINE [address] [place] [address] Nedra Pulido MD [address] [place] [address] documented as of this encounter Visit Diagnoses Not on filedocumented in this encounter Care Teams Vegetable Washing Machine Operator Relationship Specialty Start Date End Date Mariluz Cotton FNP PCP - General Family Medicine 07/15/22 03/22/23 Nedra Pulido MD [address] [place] [phone] PCP - General Internal Medicine 03/23/23 documented as of this encounter
--- OUTSIDE RECORDS SUMMARY | 2025-09-06 14:31 | XMS_ITS | Encounter Summary ---
Author Organization [employer] Address [address] [place] [address] 7 [place] [address] Care Team Providers Care Treadle Cut Off Saw Operator Name Role Phone Nedra Pulido MD Primary Care Pro vider Reason for Visit * Reason Onset Date Comments Med Refill 11/14/2024 Encounter Details Date Type Department Care Team ([facility] st Contact Info) Description 11/14/2024 Telephone [facility] [address] [place] [address] Nedra Pulido MD [address] [place] [address] Med Refill Social History Tobacco Use Types [...] 4 MG tablet To be sent to: [facility] - [place], [place] - [address] [place] [address] documented in this encounter Plan of Treatment Upcoming Encounters Date Type Department Care Team (Late st Contact Info) Description 09/20/2025 9:00 AM EST Office Visit [facility] [address] [place] [address] Nedra Pulido MD [address] [place] [address] documented as of this encounter Visit Diagnoses Not on filedocumented in this encounter Additional Health Concerns Assessment Noted Time PHQ-9 Depression Total Score: 0 06/05/20 24 11:24 AM EDT documented as of this encounter Care Teams Treadle Cut Off Saw Operator Relationship Specialty Start Date End Date Nedra Pulido MD [address] [place] [address] PCP - General Internal Medicine 03/23/23 documented as of this encounter
== END 2025-09-06 12:12 | disposition home or self-care (01) ==
LOC: HO.HHCX 12:11
PROVIDERS: PCP Student in an Organized Health Care Education/Training Program; Visit Provider Registered Nurse
DX: R06.89 Other abnormalities of breathing (principal)
CPT/HCPCS: 71046

== ENCOUNTER → 2025-09-06 12:36 | Outpatient (BNV) | payer MEDICAID, SELFPAY | PROVIDERS: PCP Student in an Organized Health Care Education/Training Program; Visit Provider Radiology Diagnostic Radiology | DX: R06.02 Shortness of breath (principal) | CPT/HCPCS: 71046 ==